=== PATIENT | male | born 1960 | race Hispanic/Latino ===

== ENCOUNTER 2017-10-16 10:20 | Observation (INO) | payer OTHER ==
[2017-10-16] MEDS ORDERED: ONDANSETRON 4 MG/2 ML VIAL IV PRN (11:57)
[2017-10-16] MEDS ORDERED: LOPERAMIDE HCL 2 MG CAPSULE PO PRN (11:57)
[2017-10-16] MEDS ORDERED: DIPHENHYDRAMINE 25 MG TAB/CAP PO PRN (11:57)
[2017-10-16] MEDS ORDERED: ACETAMINOPHEN 325 MG TABLET PO PRN (11:57)
[2017-10-16] MEDS ORDERED: POLYETHYL GLY 3350 17 GM/DOSE PO PRN (11:57)
[2017-10-16] MEDS ORDERED: ONDANSETRON 4 MG (ODT) TAB PO PRN (11:57)
[2017-10-16] MEDS ORDERED: NACHLORIDE 0.45% 1,000 ML IV SCH (12:00)
[2017-10-16 12:01] VITALS: BMI 51.0
[2017-10-16 12:15] LABS: Absolute Lymphocytes (CBC) 0.9 K/uL (0.7-4.9); Absolute Monocytes 0.6 K/uL (0.1-1.3); Absolute Neutrophil 3.8 K/uL (1.8-8.0); Basophils % 0.7 % (0-1.3); Eosinophils % 2.5 % (0-4.4); Hematocrit 45.9 % (39.6-49.0); Lymphocytes % 16.9 % (15.3-44.8); MCH 30.5 pg (27.0-35.0); MCV 92.4 fL (80-100); Monocytes % 10.6 % (3.3-12.3); RBC Red Blood Cell Count 4.96 M/uL (4.33-5.43)
[2017-10-16 12:23] LABS: Protime INR 1.35
[2017-10-16 13:02] LABS: Bicarbonate 23 mEq/L (21-31); Glucose Level 142 mg/dL (65-120); Sodium Level 136 mEq/L (135-145)
[2017-10-16 13:08] LABS: ALT/SGPT 16 IU/L (10-60); AST/SGOT 22 IU/L (10-42); Albumin 3.7 g/dL (3.2-5.5); Alkaline Phosphatase 171 IU/L (42-121); BUN Blood Urea Nitrogen 16 mg/dL (6-20); Bilirubin Direct 0.6 mg/dL (0-0.2); Bilirubin Total 1.9 mg/dL (0.3-1.2); Magnesium 1.9 mg/dL (1.8-2.5); Phosphorus 3.5 mg/dL (2.5-4.3); Protein, Total 7.3 g/dL (6.0-8.3)
[2017-10-16 13:34] LABS: A1c Component 0.98 mg/dL
[2017-10-16 13:40] LABS: Thyroid Stimulating Hormone 2.73 uIU/mL (0.34-5.60)
[2017-10-16 13:44] LABS: UR CREAT 85.6 mg/dL
[2017-10-16 13:51] LABS: Urine Appearance CLEAR; Urine Bilirubin NEGATIVE (NEG); Urine Blood NEGATIVE (NEG); Urine Color YELLOW; Urine Glucose NEGATIVE (NEG); Urine Protein NEGATIVE (NEG); Urine pH 7.5 (5.0-7.0)
[2017-10-16 14:06] LABS: Urine Microscopic Reflex NO UMIC
[2017-10-16] MEDS ORDERED: D50W 25 GM/50 ML SYRINGE IV PRN (15:27)
[2017-10-16] MEDS ORDERED: GLUCAGON 1 MG/VIAL IM PRN (15:27)
--- NOTE | 2017-10-16 15:39 | EKG ---
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
--- NOTE | 2017-10-16 15:50 | ECHO ---
HEIGHT: 5 ft 8 in WEIGHT: 336 lb 0 oz DATE OF STUDY: 10/16/[address]: 2-DIMENSIONAL: YES M.MODE: YES DOPPLER: YES COLOR FLOW: YES TDS: YES PORTABLE: NO DEFINITY: NO BUBBLE STUDY: NO DIAGNOSIS: SYNCOPE, DYSPNEA, CORONARY ARTERY DISEASE CARDIAC HISTORY: CATHERIZATION: NO SURGERY: NO PROSTHETIC VALVE: NO PACEMAKER: NO MEASUREMENTS (cm) DIASTOLIC (NORMALS) SYSTOLIC (NORMALS) IVSd (0.6-1.2) LA Diam 4.3 (1.9-4.0) LVEF >50% LVIDd (3.5-5.7) LVIDs (2.0-3.5) %FS % LVPWd (0.6-1.2) Ao Diam 3.0 (2.0-3.7) 2 DIMENSIONAL ASSESSMENT: RIGHT ATRIUM: LEFT ATRIUM: DILATED RIGHT VENTRICLE: LEFT VENTRICLE: TRICUSPID VALVE: MITRAL VALVE: PULMONIC VALVE: AORTIC VALVE: PERICARDIAL EFFUSION: AORTIC ROOT: LEFT VENTRICULAR WALL MOTION: TECHNICALLY DIFFICULT STUDY. DOPPLER/COLOR FLOW: TECHNICALLY DIFFICULT STUDY. COMMENTS: VERY POOR ULTRASOUND PICTURES. LEFT VENTRICULAR EJECTION FRACTION PROBABLY NORMAL. TECHNOLOGIST: JAE CASTANO RDCS
[2017-10-16] MEDS: INSULIN -REGULAR HUMAN 50 UNIT/0.5 ML ML SQ SCH ×2 (16:30→21:00)
[2017-10-16] MEDS ORDERED: ENOXAPARIN 40 MG/0.4 ML SQ SCH (17:00)
--- NOTE | 2017-10-16 17:25 | RAD REPORT ---
EXAM DESCRIPTION: CT - Chest For Pe Angio - 10/16/2017 5:14 pm CLINICAL HISTORY: Chest pain and cough COMPARISON: None. TECHNIQUE: Dynamically enhanced axial 3 mm thick images of the chest were obtained during administra tion of <100> mL Isovue 370 IV contrast. Coronal and oblique reconstruction images were generated and reviewed. Exam utilizes a protocol for optimal evaluation of pulmonary arterial tree. All CT scans are performed using dose optimization technique as appropriate and may include automated exposure control or mA/KV adjustment according to patient size. FINDINGS: A pulmonary embolus is not seen. A thoracic aortic aneurysm is not noted. A moderate to large loculated right pleural effusion is present. A pericardial effusion is not seen. The right lower lobe opacities are present. IMPRESSION: Moderate to large loculated right pleural effusion Right lower lobe opacities probably represent a combination of atelectasis and pneumonia. This should be followed until it is clear to help exclude a post obstructive process/underlying mass
--- NOTE | 2017-10-16 17:58 | RAD REPORT ---
EXAM DESCRIPTION: MRI - Brain Wo Cont - 10/16/2017 5:34 pm CLINICAL HISTORY: Syncope, CVA COMPARISON: None. TECHNIQUE: Multi-sequence, multiplanar MR imaging of the brain was performed without contrast. FINDINGS: No intracranial hemorrhage, hydrocephalus or extra-axial fluid collections. No edema or sh ift of midline structures. No findings to suspect brain mass. DWI is negative for acute CVA. Midline structures are normally formed. Mastoid air cells and paranasal sinuses are clear. IMPRESSION: No acute or concerning intracranial abnormalities.
[2017-10-17 05:27] LABS: Hematocrit 45.9 % (39.6-49.0); MCH 30.8 pg (27.0-35.0); MCV 92.1 fL (80-100); RBC Red Blood Cell Count 4.98 M/uL (4.33-5.43)
[2017-10-17 05:28] LABS: Absolute Lymphocytes (CBC) 1.4 K/uL (0.7-4.9); Absolute Monocytes 0.6 K/uL (0.1-1.3); Absolute Neutrophil 2.8 K/uL (1.8-8.0); Basophils % 0.8 % (0-1.3); Lymphocytes % 27.9 % (15.3-44.8); Monocytes % 11.5 % (3.3-12.3)
[2017-10-17 05:58] LABS: BUN Blood Urea Nitrogen 16 mg/dL (6-20); Bicarbonate 24 mEq/L (21-31); Glucose Level 140 mg/dL (65-120); Magnesium 2.1 mg/dL (1.8-2.5); Potassium 3.5 mEq/L (3.6-5.0); Sodium Level 136 mEq/L (135-145)
[2017-10-17] MEDS ORDERED: POTASSIUM 25 MEQ EFFERV TAB PO ONE (07:00)
[2017-10-17] MEDS: INSULIN -REGULAR HUMAN 50 UNIT/0.5 ML ML SQ SCH ×2 (07:30→11:30)
[2017-10-17] MEDS ORDERED: METFORMIN HCL 500 MG TAB PO SCH (08:00)
[2017-10-17] MEDS ORDERED: GLIMEPIRIDE 2 MG TABLET PO SCH (08:00)
[2017-10-17] MEDS ORDERED: HOME MED 1 EA UNK (Metformin Hcl [Glucophage] 1,000 MG) PO SCH (09:00)
[2017-10-17] MEDS ORDERED: HOME MED 1 EA UNK (Glimepiride [Glimepiride] 4 MG) PO SCH (09:00)
[2017-10-17 09:03] VITALS: O2SAT 91
--- NOTE | 2017-10-17 10:02 | RAD REPORT ---
EXAM DESCRIPTION: MITRA Nevarez CP - 10/17/2017 9:36 am CLINICAL HISTORY: Syncope COMPARISON: None. TECHNIQUE: Real-time sonographic evaluation of both carotid systems was performed. Doppler interroga tion was performed with waveform tracing bilaterally. FINDINGS: Normal high resistance waveforms are noted in both external carotid arteries. The common c arotid arteries and internal carotid arteries show normal low resistance waveforms. Mild plaquing changes are present in the right internal carotid artery and left bulb. On visual inspe ction there is no significant luminal narrowing. No dissection changes. Peak systolic and end diastol ic velocity values and the ICA/CCA ratios are in the non-hemodynamically significant range. Antegrade flow seen in both vertebral arteries. Velocity values and ratios were recorded and are retained in the patient's imaging records. IMPRESSION: Mild right ICA and left carotid bulb plaquing changes. Visually there is no significant luminal narrowing. Velocity values and ratios indicate no significant stenosis.
[2017-10-17 10:03] VITALS: BP 109/69; TEMP 97.2
--- NOTE | 2017-10-17 10:23 | CON ---
A 57-year-old man. Chief Complaint: Loss of consciousness. History Of Present Illness: Mr. Doherty was at a restaurant yesterday. He had ordered some food, put a basket on it but the basket had made him cough and then he lost consciousness. It was for a ma tter of 10 seconds or so. No bladder or bowel incontinence. No tongue biting. No seizure-like acti vity. No postictal confusion. Since he has been in our hospital roughly 24 hours, there has been no arrhythmia. No abnormality. His blood work other than blood sugars are slightly elevated. Mr. Her simms has diabetes for about 10 years. He uses no tobacco. He takes glimepiride, metformin, triamt erene and hydrochlorothiazide. He has been complaining of a dry cough for the past several months. Apparently, it is something that started about the time he started triamterene with hydrochlorothiazi de. He has no allergies. Physical Examination: General: 5 feet 8 inches, 336 pounds, morbidly obese. No carotid bruit. Lungs: Clear. Cardiac: Normal. Abdomen: Soft. Extremities: Trace edema. Distal pulses palpable. Echocardiogram was largely unreadable. We can see the left atrium is mildly dilated and that the eje ction fraction is normal and an electrocardiogram shows sinus rhythm, rightward axis, poor R-wave pro gression. No definite LA but a questionable LA because of poor R-wave progression. This of course i s a common finding when there is morbid obesity. He has had a CT angio of the chest that is negative for pulmonary embolus. There is a large loculated right pleural effusion, unknown cause. An MRI of the brain is normal. Impression: The patient's cough may have had something to do with it. It does not sound like a typi norma case of cough, syncope, but the patient's cough is something that does need to be investigated at some point. He has the right pleural effusion and a cough and I would be suspicious there is a pulm onary process going on that contributed some way to this syncope. Regarding his heart, I would recom mend he do a nuclear stress test. Ultrasound testing is extremely difficult to interpret because of his massive obesity. A stress test might be useful. He would be a difficult patient to do a cardiac cath on, but it could be done if we need to. At this point, I think he could be discharged and do a n outpatient nuclear stress test. SASHA/RICHARD Voice ID: [id number] Report ID: [id number]
--- NOTE | 2017-10-17 11:08 | P.CNS ---
Date of Consult: 10/17/17 Reason for Consult: Sleep apnea possible obesity hypoventilation syndrome Chief Complaint: Syncopal spell History of Present Illness: Patient is 57 years of age apparently was doing well went to or as strong started 16 and then started coughing violently denies any choking determine red nearly passed out to that he was doing well apart from a chronic cough patient is very upset and angry informed him that is high risk for sleep apnea he needs to be worked up diffuse to communicate with me CT scan shows a right-sided pleural effusion Allergies No Known Allergies Allergy (Verified 10/16/17 13:49) Home Medications: Glimepiride 4 mg PO DAILY 10/16/17 Metformin HCl [Glucophage] 1,000 mg PO DAILY 10/16/17 Triamterene/Hydrochlorothiazid [Triamterene-Hctz 37.5-25 mg Tb] 1 tab PO DAILY 10/16/17 - Past Medical/Surgical History Diabetic: Yes -: DM -: Kidney stone -: Ligaments repair both knees - Social History Alcohol use: No CD- Drugs: No Caffeine use: Yes Place of Residence: Home Review of Systems is unable to be obtained Physical Examination Temp Pulse Resp BP Pulse Ox 97.2 F 84 20 109/69 96 10/17/17 08:00 10/17/17 08:00 10/17/17 08:00 10/17/17 08:00 10/17/17 08:00 General: Alert, Oriented x3 Respiratory: Clear to auscultation bilaterally Cardiovascular: No edema, Edema (Significant 3+ edema) Laboratory Data (last 24 hrs) 10/17/17 04:57: Sodium 136, Potassium 3.5 L, BUN 16, Creatinine 0.74, Glucose 140 H, Phosphorus 4.0, Magnesium 2.1 10/17/17 04:57: WBC 5.1, Hgb 15.3, Hct 45.9, Plt Count 166 10/16/17 12:45: Troponin I < 0.03 10/16/17 12:01: B-Natriuretic Peptide 175 H 10/16/17 12:01: Sodium 136, Potassium 4.0, BUN 16, Creatinine 0.81, Glucose 142 H, Phosphorus 3.5, Magnesium 1.9, Total Bilirubin 1.9 H, AST 22, ALT 16, Alkaline Phosphatase 171 H 10/16/17 12:01: PT 16.0 H, INR 1.35, APTT 29.4 10/16/17 12:01: WBC 5.4, Hgb 15.1, Hct 45.9, Plt Count 171 - Problems (1) Sleep apnea Current Visit: Yes Status: Acute Plan: Patient is very high risk for obstructive sleep apnea is morbidly obese history of loud snoring feeling tired excessive daytime somnolence for patient became very upset with me when I mentioned him to to him about the possibility off obstructive sleep apnea an outpatient testing thyroid function tests is normal he will also need room-air blood gases room-air sat is 91% on room air patient denies any preceding history of chest pain although he has chronic shortness of breath on exertion he will need outpatient possible stress testing echocardiogram ultrasound of his carotids are so far negative (2) Pleural effusion Current Visit: Yes Status: Acute Plan: Patient has a pleural effusion on the right side of ordered a PA lateral chest x -ray bilateral decubitus of the chest (3) Cough Current Visit: Yes Status: Acute Plan: Patient complains of a chronic cough I suggest treatment to with nasal steroid and a PPI the possibility of gastroesophageal reflux this also possible that he has obesity induced asthma and recommended trial of Advair at the time of discharge
--- NOTE | 2017-10-17 11:42 | P.DS ---
Admission Date: 10/16/17 Discharge Date: 10/17/17 Disposition: ROUTINE DISCHARGE Discharge Condition: FAIR Reason for Admission: Syncopal spell Hospital Course: UMBERTO IS STABLE. HE HAS NOT HAD ANY MORE SYNCOPE. HE HAS LARGE EFFUSION RIGHT SIDE THAT HE WILL FU WITH DR. MURILLO. HE HAS NOT DONE SLEEP STUDY YET AND HAS REFUSED BEFORE. MRI IS NEGATIVE. ECHO POOR QUALITY FROM MORBID OBESITY. I WENT OVER HIS DIET AGAIN WITH . 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 HE WILL HAVE TO FOLLOW PALEO DIET TO LOSE WEIGHT. COMPLIANCE IS POOR.. I HAVE TOLD HIM AGAIN THAT WITH OBESITY OF THIS MAGNITUDE WE WILL SEE MORE AND MORE COMPLICATIONS UNLESS HE LOSES WEIGHT. Vital Signs/Physical Exam: Temp Pulse Resp BP Pulse Ox 97.2 F 84 20 109/69 96 10/17/17 08:00 10/17/17 08:00 10/17/17 08:00 10/17/17 08:00 10/17/17 08:00 Laboratory Data at Discharge: WBC 5.1 K/uL (4.3-10.9) 10/17/17 04:57 Hgb 15.3 g/dL (13.6-17.9) 10/17/17 04:57 Hct 45.9 % (39.6-49.0) 10/17/17 04:57 Plt Count 166 K/uL (152-406) 10/17/17 04:57 PT 16.0 SECONDS (9.5-12.5) H 10/16/17 12:01 INR 1.35 10/16/17 12:01 APTT 29.4 SECONDS (24.3-36.9) 10/16/17 12:01 Sodium 136 mEq/L (135-145) 10/17/17 04:57 Potassium 3.5 mEq/L (3.6-5.0) L 10/17/17 04:57 BUN 16 mg/dL (6-20) 10/17/17 04:57 Creatinine 0.74 mg/dL (0.61-1.24) 10/17/17 04:57 Glucose 140 mg/dL (65-120) H 10/17/17 04:57 Phosphorus 4.0 mg/dL (2.5-4.3) 10/17/17 04:57 Magnesium 2.1 mg/dL (1.8-2.5) 10/17/17 04:57 Total Bilirubin 1.9 mg/dL (0.3-1.2) H 10/16/17 12:01 AST 22 IU/L (10-42) 10/16/17 12:01 ALT 16 IU/L (10-60) 10/16/17 12:01 Alkaline Phosphatase 171 IU/L (42-121) H 10/16/17 12:01 Troponin I < 0.03 ng/mL (<0.03) 10/16/17 12:45 B-Natriuretic Peptide 175 pg/ml (<=100) H 10/16/17 12:01 Home Medications: Glimepiride 4 mg PO DAILY 10/16/17 Metformin HCl [Glucophage] 1,000 mg PO DAILY 10/16/17 Triamterene/Hydrochlorothiazid [Triamterene-Hctz 37.5-25 mg Tb] 1 tab PO DAILY 10/16/17 Fluticasone/Salmeterol [Advair 250-50 Diskus] 1 each IH DAILY #1 blst.w.dev Omeprazole [Prilosec] 40 mg PO DAILY #30 capsule. 10/17/17 New Medications: Fluticasone/Salmeterol [Advair 250-50 Diskus] 1 each IH DAILY #1 blst.w.dev Omeprazole [Prilosec] 40 mg PO DAILY #30 capsule. Patient Discharge Instructions: FU AT MY OFFICE IN ONE WEEK. DR. MURILLO FOR 1- [address] HOLDEN FOR SAME.
[2017-10-17 11:47] LABS: Arterial Blood Carboxyhemoglob 1.5 % (0-1.5); Blood Gas Oxyhemoglobin 92.6 % (94-97); Blood O2 Saturation 94.5 % (92-98.5)
--- NOTE | 2017-10-19 08:59 | CON ---
History Of Present Illness: Mr. Jon Doherty is a pleasant 57-year-old gentleman who was in good state of health until he had productive coughing for a few weeks ago. He was admitted to the hospital for rule out DE and his D- dimer is elevated. He had an echocardiogram that showed very poor ultrasound pictures and probably normal ejection fraction. Also had a CT of the chest that showed a right lower lobe purulent effusion, [id number] loculated right pleural effusion, possible atelectasis versus pneumonia. Also, he had a brain MRI that read is pending on. He possibly had a CT scan of the abdomen and pelvis. We will check that later. Anyway, I was called as he had been having some intermittent gross hematuria. No clots nor cranberry juice. We will have to work this up for later with a cystoscopy and CT scan of the abdomen and pelvis. He has minimal lower urinary tract symptomatology. He gets up maybe once at night. No decrease in force of stream. No straining. No frequency. No irritation. No signs of obstruction. No overactive bladder. Did have a history of kidney stones in the past, which I did a ureteroscopy on him in the past. He did have a previous CT scan in 2013 that showed a 4-mm stone in the right distal ureter at that time. Past Medical History: Diabetes mellitus, hypertension, dyspnea, fatigue, obstructive sleep apnea, syncope. Medications: Metformin, fenofibrate, __, triamterene, hydrochlorothiazide. Allergies: NO KNOWN DRUG ALLERGIES. Review of Systems: General: No fevers or chills. HEENT: No visual disturbance. No nasal discharge or sore throat. Respiratory: Some shortness of breath as mentioned above. Cardiovascular: No chest pain or palpitations. Gastrointestinal: No vomiting, diarrhea, or melena. Genitourinary: As mentioned above. Musculoskeletal: No joint pain or swelling. Neurological: Intact. Skin: No rashes. Hematologic: Negative. Physical Examination: General: Morbid obesity. Some dyspnea at rest. Vital Signs: Temperature 97, pulse 88, respiratory rate 16, BP 121/78, and oxygen saturation 96. Chest: Clear. Abdomen: Soft, nontender. No flank tenderness. Genitourinary: Both testicles descended. Phallus uncircumcised. Normal MIKE, about a 30 to 40 g benign-feeling prostate. Extremities: Normal range of motion. Laboratory Data: Reviewed. Hematology; white count 5.4, H and H 15 and 46, and platelet count 171. Coagulation; PT 16, INR 1.3, and PTT 25. D-dimer elevated. Chemistry shows sodium 136, potassium 4.0, chloride 104, carbon dioxide 23, BUN 16, creatinine 0.8. GFR greater than 90. Phosphorus normal. Calcium normal. Liver enzymes normal. TSH normal. Urine study showed pH 7.5, colorless, clear. Blood was negative. RBC negative. Does have another UA on the computer from 2012 that shows microscopic hematuria, most likely caused from the stone, but right now his urine is negative. Assessment: A pleasant gentleman 57-year-old with multiple medical problems, diabetes, hypertension, dyspnea, fatigue, obstructive sleep apnea, and syncope, who passed out and his here for workup. Workup revealed a right moderate-sized pleural effusion. He possible had a CT scan of the abdomen and pelvis. For final workup, he will need a bladder evaluation with a cystoscopy which can be done electively as an outpatient. Also, needs a PSA from primary care office or another one. NAYANA/RICHARD Voice ID: [id number] Report ID: [id number] MANPREET
--- NOTE | 2017-10-28 14:24 | EEG ---
CHART: [id number] TEST ID#: [id number] DATE OF STUDY: 10-16-2017 THE EEG WAS RECORDED PORTABLE IN THE PATIENTS ON A 17 CHANNEL MACHINE. ELECTRODES WERE APPLIED IN THE USUAL MANNER USING THE INTERNATIONAL 10-20 SYSTEM. THE WAKING BACKGROUND RHYTHM IN THIS RECORD CONSISTS OF VERY WELL DEVELOPED AND ORGANIZED WAVES OF 9.5 HZ., MIXIMAL IN THE POSTERIOR HEAD REGIONS WHICH ATTENUATE NORMALLY WITH EYE OPENING. LOW VOLTAGE 18-22 HZ ACTIVITY IS EXPRESSED IN THE FRONTAL REGIONS. THERE ARE NO FOCAL OR LATERALIZING FEATURES. NO EPILEPTIFORM ACTIVITY APPEARS. SLEEP DID NOT OCCUR. HYPERVENTILATION WAS NOT PREFORMED. PHOTIC STIMULATION PRODUCED FAIR DRIVING BILATERALLY. IMPRESSION: NORMAL EEG FOR THE AGE OF THE PATIENT IN [place].
== END 2017-10-17 12:28 | disposition home or self-care (01) ==
LOC: 4TH 10:51
PROVIDERS: ADMIT Internal Medicine; ATTEND Internal Medicine
DX: R55 Syncope and collapse (principal); J90 Pleural effusion, not elsewhere classified; R05 Cough; Z91.11 Patient's noncompliance with dietary regimen; E66.01 Morbid (severe) obesity due to excess calories; Z68.43 Body mass index [BMI] 50.0-59.9, adult; E11.9 Type 2 diabetes mellitus without complications; G47.30 Sleep apnea, unspecified; I10 Essential (primary) hypertension
CPT/HCPCS: 36415; 70551; 71275; 80048; 80076; 81003; 82043; 82306; 82570; 82607; 82805; 82962; 83036; 83735; 83880; 84100; 84443; 84484; 85025; 85379; 85610; 85730; 87086; 87088; 93005; 93306; 93880; 95819; G0378; J1650; Q9967

== ENCOUNTER → 2018-02-10 | Day surgery (SDC) | payer OTHER ==
[~2018-02-10] MED LIST: NA CHLORIDE 0.9% 1,000 ML ONE
[2018-02-10 10:52] VITALS: BMI 50.1
--- NOTE | 2018-02-10 12:16 | RAD REPORT ---
EXAM DESCRIPTION: US - Thoracentesis w/ US Guide - 02/10/2018 11:59 am CLINICAL HISTORY: Pleural effusion. RT PLEURAL EFF COMPARISON: Chest Pa And Lat (2 Views) dated 01/25/2018; Chest For Pe Angio dated 10/16/2017 FINDINGS: Preoperative diagnosis: Right pleural effusion. Post operative diagnosis: Same Conscious Sedation: None. Estimated blood loss: Minimal Specimens:None The patient was placed in the upright recumbent position and the right back was prepped and draped in the usual sterile fashion. 1% Lidocaine was infiltrated into the soft tissues for local anesthesia. Under sonographic guidance, a thoracentesis needle and 8 [place] catheter was advanced into the righ t pleural space. Approximately 1.4 liters yellow fluid was aspirated. The patient tolerated the proce dure without immediate complication and transferred to the [facility] in stable condition. IMPRESSION: Successful ultrasound-guided thoracentesis as detailed.
--- NOTE | 2018-02-10 12:31 | RAD REPORT ---
EXAM DESCRIPTION: RAD - Chest Single View - 02/10/2018 12:24 pm CLINICAL HISTORY: Post thoracentesis. Chest pain. COMPARISON: Chest Pa And Lat (2 Views) dated 01/25/2018 FINDINGS: Portable technique limits examination quality. There has been reduced mild reduction in size of the right pleural effusion. No post procedure pneumo thorax. The heart is mildly prominent in size. No displaced fractures. IMPRESSION: No postprocedure pneumothorax
--- NOTE | 2018-02-10 15:42 | RAD REPORT ---
EXAM DESCRIPTION: RAD - Chest Single View - 02/10/2018 3:36 pm CLINICAL HISTORY: Post thoracentesis chest film COMPARISON: Portable chest 3 hours earlier TECHNIQUE: AP portable chest image was obtained 1521 hours . FINDINGS: Lung volumes are low on expiration technique. There is no post thoracentesis pneumothorax identifiable. Pleural and parenchymal opacities are stable. Motion degradation is present. IMPRESSION: No post thoracentesis pneumothorax.
[2018-02-10 16:16] VITALS: BP 125/79; TEMP 98; O2SAT 95
== END ==
LOC: DS 09:44
PROVIDERS: ATTEND Internal Medicine Sleep Medicine
PROC: 0W993ZZ Drainage of Right Pleural Cavity, Percutaneous Approach (ICD-10-PCS; principal; 2018-02-10)
PROC: BB4BZZZ Ultrasonography of Pleura (ICD-10-PCS; 2018-02-10)
DX: J91.8 Pleural effusion in other conditions classified elsewhere (principal); G47.33 Obstructive sleep apnea (adult) (pediatric); E11.9 Type 2 diabetes mellitus without complications
CPT/HCPCS: 32555; 71045; J7030

== ENCOUNTER 2022-04-14 17:10 | Observation (INO) | payer OTHER ==
[2022-04-14 17:52] LABS: SARS-CoV-2 Antigen Rapid Res Negative (Negative)
--- OUTSIDE RECORDS SUMMARY | 2022-04-14 20:22 | XMS REPORT | Continuity of Care Document ---
:1960 Author Organization [facility] t Address [address] [place] [address] Care Team Providers Name Role Phone Evin Carter MD Primary Care Physician [phone] ADRIANNE GRANADOS Attending Clinician Unavailable Problems Condition Condition Condition Status Onset Resolution Last Treating Co mments Source Name Details Category Date Date Treatment Clinician Date Hydrothora Hydrothora Disease Active Last [facility] x x 6-30 [facility] 00:00: t & Plan: Medical 00 [facility]ly [facility] g of this note might be different from the original. Initial presentat ion was suspected due to pneumonia and exudative pleural effusion. Per patient and family, the prolonged clinical course however raises concern for hepatic hydrothor ax. There is concern for cirrhosis with risk factors of metabolic syndrome. CXR for update is recommend ed. He is to continue current diuretic therapy until a full assessmen t can be made. Other Other Disease Active Last [facility] cirrhosis cirrhosis 6-30 [facility] [place] of liver of liver 00:00: t & Plan: Med ical 00 [facility]ly [facility] g of this note might be different from the original. Cirrhosis suspected based on clinical history of a pleural effusion that was difficult to treat and metabolic syndrome. A comprehen sive work up is planned to assess for any additiona l etiologie s. High level imaging is recommend ed with CT scan with triple phase liver protocol. Cirrhosis education reviewed and is suspected . Updated labs for Na MELD calculati on recommend ed. If liver transplan t would need to be discussed , obesity and a BMI of 56.24 will limit this options. Obesity Obesity Disease Active Last [facility] due to due to 6-30 [facility] excess excess 00:00: t & Plan: Medical calories calories 00 [facility] with with g of this serious serious note comorbidit comorbidit might be y y different from the original. Body mass index is 56.24 kg/m2. Obesity is an establish ed risk factor for vascular complicat ions (ie coronary artery disease, cerebrova scular disease, periphera l vascular disease), osteoarth ritis, pulmonary disease, as well as the developme nt of non-alcoh olic fatty liver disease and the risk for non-alcoh olic steatohep atitis. We have recommend ed a structure d weight loss program (10% body weight initially ), along with dietary modificat ions and regular exercise for overall good health and to minimize the risk of obesity -related complicat ions. The assessmen t of a cut lace machine operator or nutrition ist may be beneficia l. Screening Screening Disease Active [facility] for for 11-28 [facility] malignant malignant 00:00: t & Plan: M edical neoplasm neoplasm 00 [facility] g of this note might be different from the original. Cirrhosis , regardles s of etiology, is a risk factor for developme nt of hepatocel lular carcinoma . The annual incidence of HCC varies from 1.5-7%. Thus, we recommend surveilla nce for HCC be performed using contrast MRI or CT imaging and alphafeto protein every 6 months. Due to weight, CT scan with triple phase liver protocol is planned. Abnormal Abnormal Disease Active [facility] liver liver 11-22 [facility] enzymes enzymes 00:00: [address] Immunity Immunity Disease Active [facility] status status 11-22 [facility] testing testing 00:00: t & Plan: Medic al [address] [place] [address] g of this note might be different from the original. Serologic al tests will be completed to determine the presence of immunity to hepatitis A and B. If the patient does not have adequate immunity, we would recommend administr ation of appropria te vaccinati on as per CDC guideline s by the primary care provider. 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 Poorly controlle d diabetes is a risk factor for fatty liver, metabolic syndrome which can lead to cirrhosis . Counselin vicente done on the need for control of his DM. Metformin carries a black box warning for lactic acidosis. Venous lactic acid to be sent and if negative, he was counseled to continue his current therapy he has been on for many years. Diet education and counselin vicente done today. Allergies, Adverse Reactions, Alerts This patient has no known allergies or adverse reactions. Family History Family Member Diagnosis Comments Start Date Stop Date Source Natural brother Hypertension [facility] Natural father Hypertension [facility] Natural mother Arthritis [facility] [place] es [facility] Center Social History Social Habit Start Date Stop Date Quantity Comments Source History SDOH [facility] Alcohol Std Drinks Medica l Center History SDNV [facility] Alcohol Binge Medical [facility] History [facility] Alcohol Comment Medical C enter Alcohol intake 2019-01-31 2019-01-31 Current [facility] Laurie es 00:00:00 00:00:00 non-drinker of Medical Ce nter alcohol (finding) Tobacco use and 2018-11-22 2018-11-22 Never used [facility] Jenni kes exposure 00:00:00 00:00:00 Medical Center History SDOH 2018-11-22 2018-11-[address] [facility] Alcohol Frequency 00:00:00 00:00:00 Medical Center Sex Ass[birth year] At [birth year] [facility] Jenni kes 00:00:00 00:00:00 Medical Center Smoking Status Start Date Stop Date Source Never smoker [facility] ical [place] Medications Ordered Filled Start Stop Current Ordering Indication Dosage Frequency Signature Comments Components Source Medication Medication Date Date Medication? Clinician (SIG) Name Name furosemide Yes Furosemide [facility] (LASIX) 20 1-03 20mg take [facility] s MG tablet 00:00: 2 tablets Med ical 00 by mouth Center once daily adjust as directed each week. spironolact Yes 100mg QD Take [address] one 7-10 tablets [facility] (ALDACTONE) 00:00: (100 mg Med ical 50 MG 00 total) by Center tablet mouth daily Adjust as directed. cholecalcif Yes [id number] Q7D Take [facility] quiana, 6-24 50,000 [facility] vitamin D3, 12:38: Units by Co dical 50,000 unit 18 mouth once Ce nter capsule a week . metFORMIN 2018- Yes 1000mg Take 1,[address] (GLUCOPHAGE 6-03 mg by [facility] ) 1000 MG 00:00: mouth 2 Medic al tablet 00 (two) Center times daily with breakfast and dinner . glimepiride Yes 4mg Take [address] (AMARYL) 4 6-03 by mouth [facility] MG tablet 00:00: every Medical 00 morning Center before breakfast . Procedures This patient has no known procedures. Results Test Description Test Time Test Comments Results Result Comments Source ALPHA FETOPROTEIN (AFP), TUMOR MARKER 2019-01-24 18:46:00 Test Item Value Reference Range Interpretation Comme nts ALPHA-FETOPROTEIN (BEAKER) (test code = 1094) < ng/mL <10.0 BASIC METABOLIC [id number] 17:18:00 Test Item Value Reference Range Interpretation Comments SODIUM (BEAKER) 139 meq/L 136-145 (test code = 381) POTASSIUM (BEAKER) 4.2 meq/L 3.5-5.1 (test code = 379) CHLORIDE (BEAKER) 105 meq/L 98-107 (test code = 382) CO2 (BEAKER) (test 25 meq/L 22-29 code = 355) BLOOD UREA NITROGEN 20 mg/dL 7-21 (BEAKER) (test code = 354) CREATININE (BEAKER) 0.91 mg/dL 0.57-1.25 (test code = 358) GLUCOSE RANDOM 69 mg/dL 70-105 L (BEAKER) (test code = 652) CALCIUM (BEAKER) 10.0 mg/dL 8.4-10.2 (test code = 697) EGFR (BEAKER) (test 85 mL/min/1.73 ESTIMA HANNA GFR IS code = 1092) sq m NOT ACCURATE CREATININE CLEARANCE IN PREDICTING GLOMERULAR FILTRATION RATE . ESTIMATED GFR I S NOT APPLICABLE FOR DIALYSIS PATIEN TS. Specimen slightly ictericHEPATIC FUNCTION [id number] 17:18:00 Test Item Value Reference Range Interpretation Comments TOTAL PROTEIN (BEAKER) (test code = 8.3 gm/dL 6.0-8.3 770) ALBUMIN (BEAKER) (test code = 1145) 3.9 g/dL 3.5-5.0 BILIRUBIN TOTAL (BEAKER) (test code 2.7 mg/dL 0.2-1.2 H = 377) BILIRUBIN DIRECT (BEAKER) (test 1.6 mg/dL 0.1-0.5 H code = 706) ALKALINE PHOSPHATASE (BEAKER) (test 215 U/L 40-150 H code = 346) AST (SGOT) (BEAKER) (test code = 23 U/L 5-34 353) ALT (SGPT) (BEAKER) (test code = 11 U/L 6-55 347) Specimen slightly ictericPROTHROMBIN [id number] 16:56:00 Test Item Value Reference Range Interpretation Comments PROTIME (BEAKER) (test code = 17.2 seconds 11.9-14.2 H 759) INR (BEAKER) (test code = 370) 1.5 <=5.9 Effective 10/27/2018: PT Reference Range ChangeNew: 11.9-14.2 Previous: 11.7- 14.7RECOMMENDED COUMADIN/WARFARIN INR THERAPY RANGESSTANDARD DOSE: 2.0-3.0 Includes: PROPHYLAXIS for venous thrombosis, systemic embolization; TREATMENT for venous thrombosis and/or pulmonary embolus.HIGH RISK: Target INR is 2.5-3.5 for patients wiht mechanical heart valves.URINALYSIS W/ [id number] 16:47:00 Test Item Value Reference Range Interpretation Comments COLOR (BEAKER) (test code = 470) Yellow CLARITY (BEAKER) (test code = 469) Clear SPECIFIC GRAVITY UA (BEAKER) (test 1.017 1.001-1.035 code = 468) PH UA (BEAKER) (test code = 467) 5.5 5.0-8.0 PROTEIN UA (BEAKER) (test code = 10 mg/dL Negative A 464) GLUCOSE UA (BEAKER) (test code = Negative Negative 365) KETONES UA (BEAKER) (test code = Negative Negative 371) BILIRUBIN UA (BEAKER) (test code = Negative Negative 462) BLOOD UA (BEAKER) (test code = Negative Negative 461) NITRITE UA (BEAKER) (test code = Negative Negative 465) LEUKOCYTE ESTERASE UA (BEAKER) Negative Negative (test code = 466) UROBILINOGEN UA (BEAKER) (test 4.0 mg/dL 0.2-1.0 H code = 463) RBC UA (BEAKER) (test code = 519) 0 /HPF WBC UA (BEAKER) (test code = 520) 3 /HPF MUCUS (BEAKER) (test code = 1574) Occasional SQUAMOUS EPITHELIAL (BEAKER) (test < /HPF code = 516) SOURCE(BEAKER) (test code = 2795) CBC W/PLT COUNT & AUTO [id number] 16:41:00 Test Item Value Reference Range Interpretation Comments WHITE BLOOD CELL COUNT (BEAKER) 6.3 K/ L 3.5-10.5 (test code = 775) RED BLOOD CELL COUNT (BEAKER) 4.69 M/ L 4.63-6.08 (test code = 761) HEMOGLOBIN (BEAKER) (test code = 15.4 GM/DL 13.7-17.5 410) HEMATOCRIT (BEAKER) (test code = 46.3 % 40.1-51.0 411) MEAN CORPUSCULAR VOLUME (BEAKER) 98.7 fL 79.0-92.2 H (test code = 753) MEAN CORPUSCULAR HEMOGLOBIN 32.8 pg 25.7-32.2 H (BEAKER) (test code = 751) MEAN CORPUSCULAR HEMOGLOBIN CONC 33.3 GM/DL 32.3-36.5 (BEAKER) (test code = 752) RED CELL DISTRIBUTION WIDTH 16.2 % 11.6-14.4 H (BEAKER) (test code = 412) PLATELET COUNT (BEAKER) (test 205 K/CU MM 150-450 code = 756) MEAN PLATELET VOLUME (BEAKER) 9.8 fL 9.4-12.4 (test code = 754) NUCLEATED RED BLOOD CELLS 0 /100 WBC 0-0 (BEAKER) (test code = 413) NEUTROPHILS RELATIVE PERCENT 69 % (BEAKER) (test code = 429) LYMPHOCYTES RELATIVE PERCENT 13 % (BEAKER) (test code = 430) MONOCYTES RELATIVE PERCENT 13 % (BEAKER) (test code = 431) EOSINOPHILS RELATIVE PERCENT 5 % (BEAKER) (test code = 432) BASOPHILS RELATIVE PERCENT 1 % (BEAKER) (test code = 437) NEUTROPHILS ABSOLUTE COUNT 4.34 K/ L 1.78-5.38 (BEAKER) (test code = 670) LYMPHOCYTES ABSOLUTE COUNT 0.80 K/ L 1.32-3.57 L (BEAKER) (test code = 414) MONOCYTES ABSOLUTE COUNT (BEAKER) 0.80 K/ L 0.30-0.82 (test code = 415) EOSINOPHILS ABSOLUTE COUNT 0.31 K/ L 0.04-0.54 (BEAKER) (test code = 416) BASOPHILS ABSOLUTE COUNT (BEAKER) 0.05 K/ L 0.01-0.08 (test code = 417) IMMATURE GRANULOCYTES-RELATIVE 1 % 0-1 PERCENT (BEAKER) (test code = 2801) ANTI-NUCLEAR ANTIBODY (CUCO)2018-11-23 10:03:00 Test Item Value Reference Range Interpretation Comments ANTI-NUCLEAR ANTIBODY (CUCO) (BEAKER) Negative Negative (test code = 418) Test performed by IFA method.Test performed by IFA method.HEPATITIS C ANTIBODY 2018-11-22 19:10:00 Test Item Value Reference Range Interpretation Comments HEPATITIS C ANTIBODY (BEAKER) Nonreactive Nonreactive (test code = 367) [id number] 17:21:00 Test Item Value Reference Range Interpretation Comments FERRITIN (BEAKER) (test code = 361) 119 ng/mL 5-275 CT, ABDOMEN, [id number] 16:56:00Referring: Dr. Evin Carter Triple phase liver protocol Triple phase liver protocolFINAL REPORT ABDOMINAL CT DATED 11/22/2018 CLINICAL INFORMATION: abdominal pain,pleural effusion, concern for cirrhosis TECHNIQUE: Axial images of the abdomen were obtained from diaphragm to the upper pelvis with and without intravenous contrast. This exam was performed according to our departmental dose- optimization program, which includes automated exposure control, adjustment of the mA and/or kV according to patient size and/or use of interactive reconstruction technique. COMMENT: There is trace right pleural effusion small to moderate left pleural effusion. Subsegmental atelectasis is seen in both lung bases. Liver is cirrhotic in appearance with irregular margins. No focal lesion is seen in the liver. Spleen is normal in size. The splenic, superior mesenteric, portal, and hepatic veins are patent. Main portal vein measures 1.4 cm. Multiple collateral veins are seen in the splenic hilum. There is splenorenal shunt. Gallbladder is contracted. No gallstone or biliary dilatation is noted. Pancreas and adrenals are unremarkable. Both kidneys are normal in size and functioning with prompt bilateral excretion. A 1.2 cm cyst is seen in the upper pole left kidney. Several cysts are seen in the right kidney with the largest measuring approximately 3 cm. The small and large bowel are suboptimally evaluated segment to lack of GI contrast. No small or large bowel dilatation is seen. Small amount of ascites is seen in the abdomen. There is diffusely increased attenuation in thesubcutaneous soft tissue suggestive of edema. IMPRESSION: 1. Bilateral pleural effusion with bibasilar subsegmental atelectasis.2. Findings suggestive of cirrhosis without suspicious hepatic mass.3. Bilateral renal cysts.4. Small ascites. Signed: Lizz Arce MDReport Verified Date/Time: 11/22/2018 16:56:24 Reading Location: [address] Radiology Reading Room HEPATITIS B SURFACE [id number] 16:50:00 Test Item Value Reference Range Interpretation Comments HEPATITIS B SURFACE ANTIBODY < mIU/mL <8.0 (BEAKER) (test code = 647) HEPATITIS B SURFACE [id number] 16:49:00 Test Item Value Reference Range Interpretation Comments HEPATITIS B SURFACE ANTIGEN (2) Nonreactive Nonreactive (BEAKER) (test code = 2585) HEPATITIS B CORE ANTIBODY, [id number] 16:49:00 Test Item Value Reference Range Interpretation Comments HEPATITIS B CORE TOTAL ANTIBODY Nonreactive Nonreactive (BEAKER) (test code = 497) HEPATITIS A ANTIBODY, [id number] 16:49:00 Test Item Value Reference Range Interpretation Comments HEPATITIS A IGG ANTIBODY (BEAKER) Nonreactive Nonreactive (test code = 2797) B-TYPE NATRIURETIC FACTOR (BNP)2018-11-22 16:36:00 Test Item Value Reference Range Interpretation Comments B-TYPE NATRIURETIC PEPTIDE (BEAKER) 332 pg/mL 0-100 H (test code = 700) RAD, CHEST, 2 [id number] 16:36:00Referring: Dr. Evin Carter Reason for Exam:->right pleural effusionFINAL REPORT PA and lateral chest dated 11/22/2018 Clinical Information: right pleural effusion Comment: Heart is enlarged. Pulmonary vasculature is indistinct. Interstitial diseaseis seen bilaterally suggestive of vascular congestion. There is a bilateral pleural effusion with bibasilar subsegmental atelectasis. IMPRESSION:1. Bilateral pleural effusion with bibasilar subsegmental atelectasis.2. Interstitial pulmonary disease suggestive of vascular congestion. Signed: Lizz Arce MDReport Verified Date/Time: 11/22/2018 16:36:54 Reading Location: [address] Radiology Reading Room BILIRUBIN, [id number] 16:30:00 Test Item Value Reference Range Interpretation Comments BILIRUBIN DIRECT (BEAKER) (test 1.6 mg/dL 0.1-0.5 H code = 706) COMPREHENSIVE METABOLIC [id number] 16:30:00 Test Item Value Reference Range Interpretation Comments TOTAL PROTEIN 7.5 gm/dL 6.0-8.3 (BEAKER) (test code = 770) ALBUMIN (BEAKER) 3.8 g/dL 3.5-5.0 (test code = 1145) ALKALINE PHOSPHATASE 191 U/L 40-150 H (BEAKER) (test code = 346) BILIRUBIN TOTAL 2.4 mg/dL 0.2-1.2 H (BEAKER) (test code = 377) SODIUM (BEAKER) (test 139 meq/L 136-145 code = 381) POTASSIUM (BEAKER) 3.8 meq/L 3.5-5.1 (test code = 379) CHLORIDE (BEAKER) 108 meq/L 98-107 H (test code = 382) CO2 (BEAKER) (test 23 meq/L 22-29 code = 355) BLOOD UREA NITROGEN 19 mg/dL 7-21 (BEAKER) (test code = 354) CREATININE (BEAKER) 0.79 mg/dL 0.57-1.25 (test code = 358) GLUCOSE RANDOM 96 mg/dL 70-105 (BEAKER) (test code = 652) CALCIUM (BEAKER) 9.5 mg/dL 8.4-10.2 (test code = 697) AST (SGOT) (BEAKER) 17 U/L 5-34 (test code = 353) ALT (SGPT) (BEAKER) 8 U/L 6-55 (test code = 347) EGFR (BEAKER) (test 100 ESTIMATE D GFR IS code = 1092) mL/min/1.73 sq NOT ACCURA TE m CREATININE CLEARANCE IN PREDICTING GLOMERULAR FILTRATION RATE . ESTIMATED GFR I S NOT APPLICABLE FOR DIALYSIS PATIEN TS. Specimen slightly ictericIRON, TIBC, % SAT. (WITHOUT FERRITIN)2018-11-22 16:28:00 Test Item Value Reference Range Interpretation Comments IRON (BEAKER) (test code = 547) 82.0 ug/dL 40.0-160.0 TOTAL IRON BINDING CAPACITY 345 ug/dL 250-450 (BEAKER) (test code = 769) IRON % SATURATION (2) (BEAKER) 24 % 20-55 (test code = 2590) [id number] 16:28:00 Test Item Value Reference Range Interpretation Comments ALPHA-1 ANTITRYPSIN (BEAKER) 192.90 mg/dL 90.00-200.00 (test code = 502) LACTIC ACID, [id number] 16:25:00 Test Item Value Reference Range Interpretation Comments LACTATE BLOOD VENOUS 1.4 mmol/L 0.5-2.2 Specime n slightly (2) (BEAKER) (test hemolyzed code = 2872) CBC W/PLT COUNT & AUTO [id number] 16:12:00 Test Item Value Reference Range Interpretation Comments WHITE BLOOD CELL COUNT (BEAKER) 4.8 K/ L 3.5-10.5 (test code = 775) RED BLOOD CELL COUNT (BEAKER) 4.62 M/ L 4.63-6.08 L (test code = 761) HEMOGLOBIN (BEAKER) (test code = 14.8 GM/DL 13.7-17.5 410) HEMATOCRIT (BEAKER) (test code = 43.6 % 40.1-51.0 411) MEAN CORPUSCULAR VOLUME (BEAKER) 94.4 fL 79.0-92.2 H (test code = 753) MEAN CORPUSCULAR HEMOGLOBIN 32.0 pg 25.7-32.2 (BEAKER) (test code = 751) MEAN CORPUSCULAR HEMOGLOBIN CONC 33.9 GM/DL 32.3-36.5 (BEAKER) (test code = 752) RED CELL DISTRIBUTION WIDTH 16.8 % 11.6-14.4 H (BEAKER) (test code = 412) PLATELET COUNT (BEAKER) (test 166 K/CU MM 150-450 code = 756) MEAN PLATELET VOLUME (BEAKER) 10.1 fL 9.4-12.4 (test code = 754) NUCLEATED RED BLOOD CELLS 0 /100 WBC 0-0 (BEAKER) (test code = 413) NEUTROPHILS RELATIVE PERCENT 70 % (BEAKER) (test code = 429) LYMPHOCYTES RELATIVE PERCENT 14 % (BEAKER) (test code = 430) MONOCYTES RELATIVE PERCENT 11 % (BEAKER) (test code = 431) EOSINOPHILS RELATIVE PERCENT 5 % (BEAKER) (test code = 432) BASOPHILS RELATIVE PERCENT 1 % (BEAKER) (test code = 437) NEUTROPHILS ABSOLUTE COUNT 3.37 K/ L 1.78-5.38 (BEAKER) (test code = 670) LYMPHOCYTES ABSOLUTE COUNT 0.65 K/ L 1.32-3.57 L (BEAKER) (test code = 414) MONOCYTES ABSOLUTE COUNT (BEAKER) 0.55 K/ L 0.30-0.82 (test code = 415) EOSINOPHILS ABSOLUTE COUNT 0.22 K/ L 0.04-0.54 (BEAKER) (test code = 416) BASOPHILS ABSOLUTE COUNT (BEAKER) 0.03 K/ L 0.01-0.08 (test code = 417) IMMATURE GRANULOCYTES-RELATIVE 0 % 0-1 PERCENT (BEAKER) (test code = 2801) [id number] 15:41:00 Test Item Value Reference Range Interpretation Comments POC-CREATININE 0.7 mg/dL 0.6-1.[address] [facility] [address] ([facility]) (test [place] code = 2642) [address] POC-EGFR (BEAKER) 115 mL/min/1.73M2 (test code = 7036)
[2022-04-14 20:54] VITALS: BMI 53.0
[2022-04-14] MEDS ORDERED: D50W 25 GM/50 ML SYRINGE IV PRN (20:57)
[2022-04-14] MEDS ORDERED: GLUCAGON 1 MG/VIAL IM PRN (20:57)
[2022-04-14] MEDS ORDERED: ACETAMINOPHEN 325 MG TABLET PO PRN (21:01)
[2022-04-14] MEDS ORDERED: DIPHENHYDRAMINE 25 MG TAB/CAP PO PRN (21:03)
[2022-04-14] MEDS ORDERED: POLYETHYL GLY 3350 17 GM/DOSE PO PRN (21:03)
[2022-04-14] MEDS ORDERED: FUROSEMIDE 40 MG/4 ML VIAL IV ONE (21:03)
[2022-04-14] MEDS ORDERED: LOPERAMIDE HCL 2 MG CAPSULE PO PRN (21:03)
[2022-04-14] MEDS ORDERED: ONDANSETRON 4 MG/2 ML VIAL IV PRN (21:03)
[2022-04-14] MEDS ORDERED: ENOXAPARIN 40 MG/0.4 ML SQ SCH (21:07)
[2022-04-14] MEDS ORDERED: FUROSEMIDE 40 MG/4 ML VIAL ONE ×2 (21:39→21:40)
[2022-04-14 21:40] LABS: Absolute Lymphocytes (CBC) 0.5 K/uL (0.7-4.9); Lymphocytes % 10.9 % (15.3-44.8); MCV 102.9 fL (80-100); MPV 9.6 fL (7.6-11.3); RBC Red Blood Cell Count 4.37 M/uL (4.33-5.43)
[2022-04-14] MEDS ORDERED: NA CHLORIDE 0.9% 100 ML ONE (21:40)
[2022-04-14] MEDS ORDERED: FUROSEMIDE 20 MG/ 2ML VIAL ONE (21:40)
[2022-04-14 21:47] LABS: Protime INR 1.53
[2022-04-14] MEDS: FUROSEMIDE 100 MG in NA CHLORIDE 0.9% 90 ML IV SCH (21:47)
[2022-04-14 22:12] LABS: Albumin 3.3 g/dL (3.4-5.0); Bilirubin Direct 1.6 mg/dL (0-0.2); Bilirubin Total 2.9 mg/dL (0.2-1.0); Magnesium 2.2 mg/dL (1.8-2.4); Phosphorus 2.6 mg/dL (2.5-4.9); Potassium 4.8 mmol/L (3.5-5.1); Protein, Total 7.9 g/dL (6.4-8.2); Thyroid Stimulating Hormone 3.5 uIU/mL (0.360-3.740)
[2022-04-14] MEDS ORDERED: DIPHENHYDRAMINE 25 MG TAB/CAP ONE (22:15)
[2022-04-14] MEDS ORDERED: INSULIN -REGULAR HUMAN 50 UNIT/0.5 ML ML ONE (23:23)
[2022-04-14] MEDS: INSULIN -REGULAR HUMAN 50 UNIT/0.5 ML ML SQ SCH (23:25)
[2022-04-15] MEDS ORDERED: D10W 125 ML IV PRN (01:34)
[2022-04-15 04:17] LABS: Absolute Lymphocytes (CBC) 0.6 K/uL (0.7-4.9); Hematocrit 43.4 % (39.6-49.0); Lymphocytes % 13.2 % (15.3-44.8); MCV 101.9 fL (80-100); RBC Red Blood Cell Count 4.26 M/uL (4.33-5.43)
[2022-04-15 04:35] LABS: Magnesium 2.1 mg/dL (1.8-2.4); Potassium 4.4 mmol/L (3.5-5.1)
[2022-04-15] MEDS ORDERED: FUROSEMIDE 40 MG/4 ML VIAL ONE (06:42)
[2022-04-15] MEDS ORDERED: FUROSEMIDE 20 MG/ 2ML VIAL ONE (06:42)
[2022-04-15] MEDS ORDERED: NA CHLORIDE 0.9% 100 ML IV ONE (06:43)
[2022-04-15] MEDS: FUROSEMIDE 100 MG in NA CHLORIDE 0.9% 90 ML IV SCH ×2 (06:45→17:38)
[2022-04-15] MEDS: INSULIN -REGULAR HUMAN 50 UNIT/0.5 ML ML SQ SCH ×4 (07:30→22:51)
[2022-04-15] MEDS ORDERED: INFLUENZA VACCINE (for 6+ mo) 0.5 ML DOSE IMVAC ONE (08:00)
--- NOTE | 2022-04-15 08:17 | RAD REPORT ---
EXAM DESCRIPTION: RAD - Chest Pa And Lat (2 Views) - 04/15/2022 7:48 am CLINICAL HISTORY: pleural effusion Chest pain. COMPARISON: Chest Pa And Lat (2 Views) dated 03/03/2018; Chest Single View dated 02/10/2018; Chest Sin gle View dated 02/10/2018; Chest Pa And Lat (2 Views) dated 01/25/2018; Chest Abdomen Pelvis W Cont fracisco ed 04/15/2022 FINDINGS: Haziness in the right lung base is present likely representing mild infiltrate. No signifi cant pleural fluid is suspected bilaterally. The heart is mildly prominent in size. No displaced frac tures.
--- NOTE | 2022-04-15 08:20 | RAD REPORT ---
EXAM DESCRIPTION: CT - Chest Abdomen Pelvis W Cont - 04/15/2022 7:35 am CLINICAL HISTORY: Chest and abdomen pain. Cirrhosis, ascites, anasarca, pleural effusion COMPARISON: No comparisons TECHNIQUE: Approximately 100 mL nonionic IV contrast was administered to the patient. All CT scans are performed using dose optimization technique as appropriate and may include automated exposure control or mA/KV adjustment according to patient size. FINDINGS: Hazy opacity is present in the right lung base which may represent mild infiltrate. Mild a telectasis also likely present right lower lobe.Minimal right pleural fluid.No left pleural fluid or pericardial fluid.No intrathoracic adenopathy.Moderate bilateral gynecomastia. Diffuse fatty liver is identified. The spleen is normal in size. Both adrenal glands are normal. No h ydronephrosis of either kidney. Benign right renal cysts. No pancreatic mass or ductal dilatation. No significant ascites. No bowel obstruction seen. No free air or free fluid. Prominent venous collat erals are present in left upper quadrant trace amount of free fluid in the pelvis noted. No pathologi c lymphadenopathy in the abdomen or pelvis. No worrisome osseous finding. IMPRESSION: No significant pleural effusions or volume of ascites present. Mild fatty liver is noted.
[2022-04-15] MEDS: SPIRONOLACTONE 100 MG TAB PO SCH ×2 (09:43→22:49)
[2022-04-15] MEDS: ENOXAPARIN 40 MG/0.4 ML SQ SCH (09:43)
[2022-04-15 10:18] LABS: Specific Gravity 1.014 (1.005-1.030); Urine Bilirubin NEGATIVE (Negative); Urine Blood Negative (Negative); Urine Clarity Clear (Clear); Urine Color Light-Yellow (Yellow); Urine Glucose NEGATIVE (Negative); Urine Protein NEGATIVE (Negative); Urine Urobilinogen Normal (Normal)
[2022-04-15 10:59] LABS: UR MICROALBUMIN < 0.5 mg/dL (< 1.9)
[2022-04-15] MEDS: METFORMIN HCL 500 MG TAB PO SCH (22:48)
--- NOTE | 2022-04-16 01:21 | PN ---
Subjective: Mr. Stout is doing a lot better. No chest pain, nausea, or vomiting. His edema is improved. Physical Examination: Vital Signs: His blood pressure 111/67, afebrile. General: He is comfortable, no major distress. He has generalized severe anasarca. He does not take his medications routinely. He does not come to the office on routine basis. Otherwise, decreased breath sounds bilaterally, but he has some improv ed air movement now. Assessment And Plan: Severe anasarca from cirrhosis of liver from fatty liver. Prognosis remains po or. He is on Lasix drip currently as he will not tolerate boluses of Lasix. At the same time, he is on high dose of Aldactone, which he said, he is not compliant about taking it. He does not follow h is diet, he does not lose weight and unfortunately carries a poor prognosis with this diagnosis. 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 The last time he went to casting and pasting supervisor was 2 years ago. He has been established at [facility]. Prognosis overall poor. RVD/MODL Voice ID: [id number] Report ID: [id number]
[2022-04-16] MEDS: FUROSEMIDE 100 MG in NA CHLORIDE 0.9% 90 ML IV SCH (03:46)
[2022-04-16 04:41] LABS: Absolute Lymphocytes (CBC) 0.7 K/uL (0.7-4.9); Hematocrit 45.8 % (39.6-49.0); Lymphocytes % 13.5 % (15.3-44.8); MCV 101.2 fL (80-100); MPV 8.8 fL (7.6-11.3); RBC Red Blood Cell Count 4.52 M/uL (4.33-5.43)
[2022-04-16] MEDS: INSULIN -REGULAR HUMAN 50 UNIT/0.5 ML ML SQ SCH ×2 (07:30→12:28)
[2022-04-16] MEDS: SPIRONOLACTONE 100 MG TAB PO SCH ×2 (09:00)
[2022-04-16] MEDS: ENOXAPARIN 40 MG/0.4 ML SQ SCH (09:52)
[2022-04-16] MEDS: METFORMIN HCL 500 MG TAB PO SCH (09:52)
[2022-04-16 13:41] VITALS: O2SAT 96
[2022-04-16 13:43] VITALS: BP 109/70; TEMP 96.9
--- NOTE | 2022-04-16 19:04 | EKG ---
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
== END 2022-04-16 14:20 | disposition home or self-care (01) ==
LOC: 2ND 18:50
PROVIDERS: ADMIT Internal Medicine; ATTEND Internal Medicine
DX: K74.60 Unspecified cirrhosis of liver (principal); K75.81 Nonalcoholic steatohepatitis (NASH); R60.1 Generalized edema; K76.0 Fatty (change of) liver, not elsewhere classified; Z91.14 Patient's other noncompliance with medication regimen
CPT/HCPCS: 93005; 85025 ×3; 80048 ×3; 36415 ×2; 83735 ×3; 84100; 85610; 82947 ×6; 80076; 85730; 84443; 81003; 83036; 82570; 82607; 82306; 82043; 71260; 74177; 71046; 87811; Q9967; J1940 ×5; J1815 ×5; J1650 ×2; G0379; G0378 ×3

== ENCOUNTER 2023-04-26 01:23 | Emergency (ER) | payer OTHER ==
--- OUTSIDE RECORDS SUMMARY | 2023-04-26 01:30 | XMS REPORT | Continuity of Care Document ---
:1960 Author Organization [facility] t Address [address] [facility] [facility] [place] [address] Care Team Providers Name Role Phone Evin Carter MD Primary Care Physician [phone] Kimo Mena MA Attending Clinician Unavailable Kirby Chen MD Attending Clinician Isacc Mae RN Attending Clinician Unavailable Shelley Bolaños Attending Clinician Unavailable Ernesto Scherer RN Attending Clinician Unavailable [facility] Attending Clinician Unavailable Eric Linton MD Attending Clinician ERIC LINTON Attending Clinician Unavailable Adrianne Granados MD Attending Clinician Dottie Coronado RD Attending Clinician Unavailable Moshe SHELBY, [facility] Helene Junior Attending Clinician [phone] Marian Wright LCSW Attending Clinician Unavailable Delisa Gunter Attending Clinician Unavailable Yolanda Anderson Attending Clinician Dinah Diamond Attending Clinician Unavailable Anastasiia Carson MA Attending Clinician Unavailable Anita Barroso MA Attending Clinician Unavailable Reva Kendall RN Attending Clinician Unavailable Timothy Chavarria MD Attending Clinician Neto Floydestrellacarin Elia Attending Clinician Aleyda Celio Attending Clinician ADRIANNE GRANADOS Attending Clinician Unavailable Payers Payer Name Policy Type Policy Number Effective Date Expiration Date S ource Problems Condition Condition Condition Status Onset Resolution Last Treating Co mments Source Name Details Category Date Date Treatment Clinician Date Encounter Encounter Disease Active Last [facility] St for for 07-31 Assessroly Day pre-transp pre-transp 00:00: t & Plan: Medical lant lant 00 [facility] evaluation evaluation g of this for liver for liver note transplant transplant might be different from the original. At this time he is not acceptabl e for transplan t given Body mass index is 49.49 kg/m2. He will return to clinic in 3 months for weight check and re-evalua tion. Portal Portal Disease Active 2021-[address] hypertensi hypertensi 2- Assessroly Day on on 00:00: t & Plan: Medical [address] [place] [address] g of this note might be different from the original. Patient with portal HTN as evidenced by R. Hydrothor ax s/p thoracent esis 2018 and evidence of collatera l vasculatu re on CT abdomen 04/2022. Patient's hydrothor ax currently controlle d on PO diuretic regimen. Will continue to monitor. Patient will require EGD for EV screening given his diagnosis of cirrhosis . Unconjugat Unconjugat Disease Active 2021-[address] ed ed 2- Assessroly Day hyperbilir hyperbilir 00:00: t & Plan: Medical ubinemia ubinemia [address] [facility] [address] g of this note might be different from the original. Noted on 05/2022 labs. Gilbert's disease is a likely etiology. We have ordered UGT1A1 genotype testing. Immunity Immunity Disease Active 2021-06 [facility] status status 2- Assessroly Day testing testing 00:00: t & Plan: Medic al 00 [facility] g of this note might be different from the original. CDC recommend s that all patients with chronic liver disease, regardles s of etiology, should be immunized to prevent hepatitis A and hepatitis B if they are not already immune. This should be done in addition to other age-appro priate vaccines. Patient without documente d immunity to hepatitis A or B and would benefit from these vaccines Metabolic Metabolic Disease Active 2021-[address] [facility] [address] syndrome syndrome Assessroly Sullivan es 00:00: t & Plan: Medical [address] [place] [address] g of this note might be different from the original. Diabetes and obesity are contribut ing to metabolic syndrome leading to progressi on of BRADLEY. We recommend working with your PCP to keep these factors well controlle d. Decompensa Decompensa Disease Recurre 2021-[address] [facility] [address] romel romel nce Edward Day hepatic hepatic 00:00: t & Plan: Medic al cirrhosis cirrhosis 00 [facility] g of this note is different from the original. Cirrhosis diagnosed by imaging and there is evidence of decompens ation in the form of hydrothor ax and varices. Cirrhosis likely secondary to fatty liver disease /metaboli c syndrome. Current MELD is 17. Continue to follow up with hepatolog y. Hydrothora Hydrothora Disease Active Last [facility] x x 11-28 Edward Day 00:00: t & Plan: Medical [address] [place] [address] g of this note might be different from the original. Patient with portal HTN as evidenced by R. Hydrothor ax s/p thoracent esis 2018 and evidence of collatera l vasculatu re on CT abdomen 04/2022. Patient's hydrothor ax currently controlle d on PO diuretic regimen. Will continue to monitor. Patient will require EGD for EV screening given his diagnosis of cirrhosis . Obesity Obesity Disease Active [facility] St 11-28 Edward Day 00:00: t & Plan: Medical [address] [place] [address] g of this note might be different from the original. Pt reports 80 lb weight loss. 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 Return in three months for weight managemen t. Cancer Cancer Disease Active Last [facility] St screening screening 11-28 Assessroly henson 00:00: t & Plan: Medical [address] [place] [address] g of this note might be different from the original. Cirrhosis , regardles s of etiology, is a risk factor for developme nt of hepatocel lular carcinoma with an annual incidence of 1.5-4.5%. We recommend surveilla nce for HCC with abdominal imaging and alphafeto protein every 6 months. Will check AFP at current encounter , we will have our patient's OSH CT review. Patient also is in need of screening colonosco py. Would benefit from EGD/colon oscopy with OSH GI closer to his home. Other Other Disease Recurre Last [facility] cirrhosis cirrhosis nce 630 Assessroly [place] of liver of liver 00:00: t & Plan: Med ical [address] [place] [address] g of this note might be different [...] BMI of 56.24 will limit this options. Abnormal Abnormal Disease Active [facility] liver [address] [facility] enzymes enzymes 00:00: [address] Immunity Immunity Disease Active [facility] testing [facility]:00: t & Plan: Medic al [address] [place] [address] g of this note might be different from the original. Serologic al tests will be completed to determine the presence of immunity to hepatitis A and B. If the patient does not have adequate immunity, we would recommend administr ation of appropria te vaccinati on as per CDC guideline s by the primary care provider. Type II Type II Disease Recurre Last [facility] diabetes diabetes nce 624 Assessmen [facility] mellitus mellitus 00:00: t & Plan: Med ical [address] [place] [address] g of this note might be different from the original. He will require glycemic control prior to transplan t. Pleural Pleural Disease Active 2017-06 [facility] effusion effusion 0- 00:00: Hospita 00 l Allergies, Adverse Reactions, Alerts Allergy Allergy Status Severity Reaction(s) Onset Inactive Treating Comm ents Source Name Type Date Date Clinician NO KNOWN Allergy Active [facility] Family History Family Member Diagnosis Comments Start Date Stop Date Source Natural brother Hypertension [facility] Natural father Hypertension [facility] Natural mother Arthritis [facility] Social History Social Habit Start Date Stop Date Quantity Comments Source History SDOH [facility] Std Drinks [facility] Center History SDOH [facility] Alcohol Binge [facility] History SDOH [facility] Alcohol Comment Medical C enter Sexual orientation [facility] Alcohol intake 2022-06-01 2022-06-[address] [facility] [address] Laurie es 00:00:00 00:00:00 non-drinker of Medical Ce nter alcohol (finding) History of Social 2022-06-01 2022-06-[address] [facility] [address] [facility] function 00:00:00 00:00:00 Medical Center History SDOH 2018-11-22 2018-11-22 [address] [facility] [address] maparo Alcohol Frequency 00:00:00 00:00:00 [facility] Tobacco use and 2018-11-22 2018-11-[address] [facility] exposure 00:00:00 00:00:00 non-user [facility] Sex Assigned At [birth year] [facility] sameers 00:00:00 00:00:00 [facility] Smoking Status Start Date Stop Date Source Never smoked tobacco [facility] Medications Ordered Filled Start Stop Current Ordering Indication Dosage Frequency Signature Comments Components Source Medication Medication Date Date Medication? Clinician (SIG) Name Name cholecalcif 2022- No [id number] Q7D Take [facility], 07-30 50,000 [facility] vitamin D3, 10:17: 00:00 Units by Glenn mcdonald 50,000 unit 59 :00 mouth once Ce nter capsule a week . cholecalcif 2022- No [id number] Q7D Take [facility], 07-30 50,000 [facility] vitamin D3, 10:17: 00:00 Units by Glenn mcdonald 50,000 unit 59 :00 mouth once Ce nter capsule a week . cholecalcif 2022- No [id number] Q7D Take [facility], 07-30 50,000 [facility] vitamin D3, 10:17: 00:00 Units by Glenn mcdonald 50,000 unit 59 :00 mouth once Ce nter capsule a week . cholecalcif 2022- No 1000U Q.5D Take 1,000 [facility], 07-30 Units by [facility] vitamin D3, 10:17: 00:00 mouth 2 Me dical 25 mcg 47 :00 (two) Center (1,000 times unit) daily. capsule cholecalcif 3-0 2023- No 1000U Q.5D Take 1,[address] quiana, 3- 03-01 Units by [facility] vitamin D3, 10:17: 00:00 mouth 2 Me dical 25 mcg 47 :00 (two) Center (1,000 times unit) daily. capsule cholecalcif 2023-0 2023- No 1000U Q.5D Take 1,[address] quiana, 3- 03-01 Units by [facility] vitamin D3, 10:17: 00:00 mouth 2 Me dical 25 mcg 47 :00 (two) Center (1,000 times unit) daily. capsule calcium 2022-0 Yes 1200mg Take 1,[address] carbonate/v 3-01 mg by [facility]ukes itamin D3 10:17: mouth Per Med ical (CALCIUM 25 spouse, pt Cente r WITH takes VITAMIN D Vitamin D ORAL) 25mg + Calcium 1200 mg one time a day . calcium 2022-0 Yes 1200mg Take 1,[address] carbonate/v 3-01 mg by [facility]ukes itamin D3 10:17: mouth Per Med ical (CALCIUM 25 spouse, pt Cente r WITH takes VITAMIN D Vitamin D ORAL) 25mg + Calcium 1200 mg one time a day . calcium 2022-0 Yes 1200mg Take 1,[address] carbonate/v 3-01 mg by Lukes itamin D3 10:17: mouth Per Med ical (CALCIUM 25 spouse, pt Cente r WITH takes VITAMIN D Vitamin D ORAL) 25mg + Calcium 1200 mg one time a day . promethazin 2021-06 Yes 1.25mL Take 1.[address] e-dextromet 2-29 mLs by Lukes horphan 13:33: mouth 4 Medical (PROMETHAZI 40 (four) [facility]) times 6.25-15 daily as mg/5 mL needed for syrup Cough. promethazin 2021-06 Yes 1.25mL Take 1.[address] e-dextromet 2-29 mLs by [facility]ukes horphan 13:33: mouth 4 Medical (PROMETHAZI 40 (four) [facility]) times 6.25-15 daily as mg/5 mL needed for syrup Cough. promethazin 2021-06 Yes 1.25mL Take 1.[address] e-dextromet 2-29 mLs by Lukes horphan 13:33: mouth 4 Medical (PROMETHAZI 40 (four) Center [facility]) times 6.25-15 daily as mg/5 mL needed for syrup Cough. furosemide 2020-0 [address]urosemide [facility] (LASIX) 20 1-03 20mg take Luke s MG tablet 00:00: 2 tablets Med ical 00 by mouth Center once daily adjust as directed each week. furosemide 2020-0 Yes [address]urosemide [facility] (LASIX) 20 1-03 20mg take Luke s MG tablet 00:00: 2 tablets Med ical 00 by mouth Center once daily adjust as directed each week. furosemide 2020-0 Yes Furosemide [facility] (LASIX) 20 1-03 20mg take Luke s MG tablet 00:00: 2 tablets Med ical 00 by mouth Center once daily adjust as directed each week. furosemide 2020-0 Yes Furosemide [facility] (LASIX) 20 1-03 20mg take Luke s MG tablet 00:00: 2 tablets Med ical 00 by mouth Center once daily adjust as directed each week. furosemide 2020-0 Yes Furosemide [facility] (LASIX) 20 1-03 20mg take Luke s MG tablet 00:00: 2 tablets Med ical 00 by mouth Center once daily adjust as directed each week. furosemide 2020-0 Yes Furosemide [facility] (LASIX) 20 1-03 20mg take Luke s MG tablet 00:00: 2 tablets Med ical 00 by mouth Center once daily adjust as directed each week. spironolact 2019-0 Yes 100mg QD Take [address] one 7-10 tablets [facility]ukes (ALDACTONE) 00:00: (100 mg Med ical 50 MG 00 total) by Center tablet mouth daily Adjust as directed. spironolact 2019-0 Yes 100mg QD Take [address] one 7-10 tablets [facility]ukes (ALDACTONE) 00:00: (100 mg Med ical 50 MG 00 total) by Center tablet mouth daily Adjust as directed. spironolact 2019-0 Yes 100mg QD Take [address] one 7-10 tablets [facility]ukes (ALDACTONE) 00:00: (100 mg Med ical 50 MG 00 total) by Center tablet mouth daily Adjust as directed. spironolact 2019-0 Yes 100mg QD Take [address] one 7-10 tablets [facility]ukes (ALDACTONE) 00:00: (100 mg Med ical 50 MG 00 total) by Center tablet mouth daily Adjust as directed. spironolact 2019-0 Yes 100mg QD Take [address] one 7-10 tablets [facility]ukes (ALDACTONE) 00:00: (100 mg Med ical 50 MG 00 total) by Center tablet mouth daily Adjust as directed. spironolact 2019-0 Yes 100mg QD Take [address] one 7-10 tablets [facility]ukes (ALDACTONE) 00:00: (100 mg Med ical 50 MG 00 total) by Center tablet mouth daily Adjust as directed. cholecalcif 2019-0 Yes [id number] Q7D Take [facility] quiana, 6-24 50,000 [facility] vitamin D3, 12:38: Units by Me dical 50,000 unit 18 mouth once Ce nter capsule a week . cholecalcif 2019-0 Yes [id number] Q7D Take [facility] quiana, 6-24 50,000 [facility] vitamin D3, 12:38: Units by Me dical 50,000 unit 18 mouth once Ce nter capsule a week . cholecalcif 2019-0 Yes [id number] Q7D Take [facility] quiana, 6-24 50,000 [facility] vitamin D3, 12:38: Units by Me dical 50,000 unit 18 mouth once Ce nter capsule a week . metFORMIN 2019-0 Yes 1000mg Take 1,[address] (GLUCOPHAGE 6-03 mg by Lukes ) 1000 MG 00:00: mouth 2 Medic al tablet 00 (two) Center times daily with breakfast and dinner . glimepiride 2019-0 Yes 4mg Take [address] (AMARYL) 4 6-03 by mouth [facility]ukes MG tablet 00:00: every Medical 00 morning Center before breakfast . metFORMIN 2019-0 Yes 1000mg Take 1,[address] (GLUCOPHAGE 6-03 mg by Lukes ) 1000 MG 00:00: mouth 2 Medic al tablet 00 (two) Center times daily with breakfast and dinner . glimepiride 2019-0 Yes 4mg Take [address] (AMARYL) 4 6-03 by mouth [facility]ukes MG tablet 00:00: every Medical 00 morning Center before breakfast . metFORMIN 2019-0 Yes 1000mg Take 1,[address] (GLUCOPHAGE 6-03 mg by Lukes ) 1000 MG 00:00: mouth 2 Medic al tablet 00 (two) Center times daily with breakfast and dinner . glimepiride 2019-0 Yes 4mg Take [address] (AMARYL) 4 6-03 by mouth [facility]ukes MG tablet 00:00: every Medical 00 morning Center before breakfast . metFORMIN 2019-0 Yes 1000mg Take 1,[address] (GLUCOPHAGE 6-03 mg by Lukes ) 1000 MG 00:00: mouth 2 Medic al tablet 00 (two) Center times daily with breakfast and dinner . glimepiride 2019-0 Yes 4mg Take [address] (AMARYL) 4 6-03 by mouth [facility]ukes MG tablet 00:00: every Medical 00 morning Center before breakfast . metFORMIN 2019-0 Yes 1000mg Take 1,[address] (GLUCOPHAGE 6-03 mg by Lukes ) 1000 MG 00:00: mouth 2 Medic al tablet 00 (two) Center times daily with breakfast and dinner . glimepiride 2019-0 Yes 4mg Take [address] (AMARYL) 4 6-03 by mouth [facility] MG tablet 00:00: every Medical 00 morning Center before breakfast . metFORMIN 2019-0 Yes 1000mg Take 1,[address] (GLUCOPHAGE 6-03 mg by Lukes ) 1000 MG 00:00: mouth 2 Medic al tablet 00 (two) Center times daily with breakfast and dinner . glimepiride 2019-0 Yes 4mg Take [address] (AMARYL) 4 6-03 by mouth [facility] MG tablet 00:00: every Medical 00 morning Center before breakfast . cholecalcif 2018- Yes [id number] QD Take Meth nisa quiana, 1- 50,000 st vitamin D3, 18:10: Units by Ho spita 50,000 unit 41 mouth l capsule daily. cholecalcif 2018- Yes [id number] QD Take Meth nisa quiana, 1- 50,000 st vitamin D3, 18:10: Units by Ho spita 50,000 unit 41 mouth l capsule daily. cholecalcif 2018- Yes [id number] QD Take Meth nisa quiana, - 50,000 st vitamin D3, 18:10: Units by Ho spita 50,000 unit 41 mouth l capsule daily. cholecalcif 2017-06 Yes [id number] QD Take Meth nisa quiana, 06-09 50,000 st vitamin D3, 18:10: Units by Ho spita 50,000 unit 41 mouth l capsule daily. cholecalcif 2017-06 Yes [id number] QD Take Meth nisa quiana, 06-09 50,000 st vitamin D3, 18:10: Units by Ho spita 50,000 unit 41 mouth l capsule daily. furosemide 2017-06 Yes [facility] (LASIX) 20 0-23 st mg tablet 00:00: Hospita 00 l furosemide 2017-06 Yes [facility] (LASIX) [facility] 0-23 st mg tablet 00:00: Hospita 00 l furosemide 2017-06 Yes [facility] (LASIX) [facility] 0-23 st mg tablet 00:00: Hospita 00 l furosemide 2017-06 Yes [facility] (LASIX) [facility] 0-23 st mg tablet 00:00: Hospita 00 l furosemide 2017-06 Yes [facility] (LASIX) 20 0-23 st mg tablet 00:00: Hospita 00 l spironolact 2017-06 Yes [facility] i one 0-10 st (ALDACTONE) 00:00: Hospit a 25 MG 00 l tablet spironolact 2017-06 Yes [facility] i one 0-10 st (ALDACTONE) 00:00: Hospit a 25 MG 00 l tablet spironolact 2017-06 Yes [facility] one 0-10 st (ALDACTONE) 00:00: Hospit a 25 MG 00 l tablet spironolact 2017-06 Yes Method i one 0-10 st (ALDACTONE) 00:00: Hospit a 25 MG 00 l tablet spironolact 2017-06 Yes [facility] i one 0-10 st (ALDACTONE) 00:00: Hospit a 25 MG 00 l tablet glimepiride 2017-06 Yes Method i (AMARYL) 4 0-03 st MG tablet 00:00: Hospita 00 l metFORMIN 2017-06 Yes [facility] (GLUCOPHAGE 0-03 st ) 1,000 mg 00:00: Hospita tablet 00 l glimepiride 2017-06 Yes Method i (AMARYL) 4 0-03 st MG tablet 00:00: Hospita 00 l metFORMIN 2017-06 Yes [facility] (GLUCOPHAGE 0-03 st ) 1,000 mg 00:00: Hospita tablet 00 l glimepiride 2017-06 Yes Method i (AMARYL) 4 0-03 st MG tablet 00:00: Hospita 00 l metFORMIN 2017-06 Yes [facility] (GLUCOPHAGE 0-03 st ) 1,000 mg 00:00: Hospita tablet 00 l glimepiride 2017-06 Yes Method i (AMARYL) 4 0-03 st MG tablet 00:00: Hospita 00 l metFORMIN 2017-06 Yes [facility] (GLUCOPHAGE 0-03 st ) 1,000 mg 00:00: Hospita tablet 00 l metFORMIN 2017-06 Yes [facility] (GLUCOPHAGE 0-03 st ) 1,000 mg 00:00: Hospita tablet 00 l glimepiride 2017-06 Yes Method i (AMARYL) 4 0-03 st MG tablet 00:00: Hospita 00 l Vital Signs Vital Name Observation Time Observation Value Comments Source Systolic blood 2022-08-06 11:01:00 116 mm[Hg] [facility] Diastolic blood 2022-08-06 11:01:00 69 mm[Hg] [facility] Heart rate 2022-08-06 11:01:00 85 /min [facility] Body temperature 2022-08-06 11:01:00 36.56 Ana Cristina [facility] Respiratory rate 2022-08-06 11:01:00 20 /min [facility] Body height 2022-08-06 11:01:00 167.6 cm [facility] Body weight 2022-08-06 11:01:00 141.522 kg [facility] BMI 2022-08-06 11:01:00 50.36 kg/m2 [facility] Oxygen saturation in 2022-08-06 11:01:00 98 /min [facility] Arterial blood by Medical Ce nter Pulse oximetry Procedures Procedure Date / Time Performing Clinician Source Performed CAROTID DOPPLER BILATERAL 2022-08-06 15:49:00 Eric Linton [facility] ECHO W CONTRAST & DOPPLER 2022-08-06 14:09:11 Eric Linton [facility] ECHO W CONTRAST & DOPPLER 2022-08-06 14:09:11 Khaderi, Eric [facility] ECG 12-LEAD 2022-08-06 13:59:12 Royer [facility] BLOOD GAS, ARTERIAL 2022-08-06 12:30:[address] [facility] [address] ABDOMEN WITH & WITHOUT 2022-07-30 12:40:00 MarileeAdrianne licona [facility] XR DXA BONE DENSITY STUDY 2022-07-30 12:02[facility]IE[facility] MIN 2022-07-30 11:46:00 Royer [facility] XR CHEST 2 VIEWS 2022-07-30 11:42:00 Royer [facility] BLOOD TYPING, AUTOMATED 2022-07-30 07:58:00 Royer [facility] TYPE AND SCREEN, AUTOMATED 2022-07-30 07:53:00 Royer [facility] DRUG SCREEN, URINE, 2022-07-30 07:52:00 Royer [facility] TRANSPLANT [facility] URINALYSIS W/ MICROSCOPIC 2022-07-30 07:52:00 Royer [facility] MISCELLANEOUS LAB ORDER 2022-07-30 07:51:00 Royer [facility] COMPREHENSIVE METABOLIC 2022-07-30 07:51:[address] [facility] BILIRUBIN, DIRECT 2022-07-30 07:51:00 [facility] GAMMA GLUTAMYL TRANSFERASE 2022-07-30 07:51:00 Royer [facility] (GGT) [facility] CALCIUM, IONIZED 2022-07-30 07:51:00 Royer [facility] MAGNESIUM 2022-07-30 07:51:00 Royer [facility] PHOSPHORUS 2022-07-30 07:51:00 Eric Linton [facility] CBC W/PLT COUNT & AUTO 2022-07-30 07:51:00 Eric Linton [facility] DIFFERENTIAL [facility] ACTIN (SMOOTH MUSCLE) 2022-07-30 07:51:00 Eric Linton [facility] ANTIBODY, IGG Medical Center TRANSFERRIN 2022-07-30 07:51:00 Eric Linton [facility] FERRITIN 2022-07-30 07:51:00 Eric Linton [facility] CERULOPLASMIN 2022-07-30 07:51:00 Eric Linton [facility] VITAMIN D, 25-HYDROXY 2022-07-30 07:51:00 Eric Linton [facility] LIPID PANEL 2022-07-30 07:51:00 Eric Linton [facility] HEMOGLOBIN A1C 2022-07-30 07:51:00 Eric Linton [facility] ETHANOL 2022-07-30 07:51:00 Eric Linton [facility] ALPHA FETOPROTEIN (AFP), 2022-07-30 07:51:00 Eric Linton [facility] TUMOR MARKER [facility] CARBOHYDRATE ANTIGEN 19-9 2022-07-30 07:51:00 Eric Linton [facility] (CA 19-9) [facility] CARCINOEMBRYONIC ANTIGEN 2022-07-30 07:51:00 Eric Linton [facility] (CEA) [facility] ZINC 2022-07-30 07:51:00 Royer Ericifeanyi Redmond [facility] URIC ACID 2022-07-30 07:51:00 Eric Linton [facility] TSH 2022-07-30 07:51:00 Eric Linton [facility] T4 2022-07-30 07:51:00 Eric Linton [facility] HEPATITIS A ANTIBODY, IGG 2022-07-30 07:51:00 Eric Linton [facility] HEPATITIS B CORE ANTIBODY, 2022-07-30 07:51:00 Eric Linton [facility] TOTAL [facility] HEPATITIS B CORE ANTIBODY, 2022-07-30 07:51:00 Eric Linton [facility] IGM [facility] MUMPS ANTIBODY, IGG 2022-07-30 07:51:00 Eric Linton [facility] RUBELLA ANTIBODY, IGG 2022-07-30 07:51:00 Eric Linton [facility] VARICELLA ZOSTER ANTIBODY, 2022-07-30 07:51:00 Eric Linton [facility] T SPOT TB 2022-07-30 07:51:00 Eric Linton [facility] [id number]\\, SERUM 2022-07-30 07:51:00 Eric Linton [facility] ALPHA-1 ANTITRYPSIN 2022-07-30 07:51:00 Eric Linton [facility] MUTATION ANALYSIS [facility] TOXOPLASMA GONDII ANTIBODY, 2022-07-30 07:51:00 Eric Linton [facility] IGG [facility] COCCIDIOIDES ANTIBODIES 2022-07-30 07:51:00 Eric Linton [facility] CBC W/PLT COUNT & AUTO 2022-07-30 07:51:00 Eric Linton [facility] DIFFERENTIAL [facility] FIBRINOGEN 2022-07-30 07:50:00 Eric Linton [facility] PROTHROMBIN TIME/INR 2022-07-30 07:50:00 Eric Linton [facility] APTT 2022-07-30 07:50:00 Eric Linton [facility] ANTI-NUCLEAR ANTIBODY (CUCO) 2022-07-30 07:50:00 Eric Linton [facility] MITOCHONDRIA M2 ANTIBODY 2022-07-30 07:50:00 Eric Linton [facility] (IGG) [facility] IRON, TIBC, % SAT. (WITHOUT 2022-07-30 07:50[facility] T3 2022-07-30 07:50:00 Eric Linton [facility] HEPATITIS B SURFACE ANTIGEN 2022-07-30 07:50[facility]-07-30 07:50:00 Eric Linton [facility] HEPATITIS C ANTIBODY 2022-07-30 07:50:00 Eric Linton [facility] HC LAB HIV-1 AG W/HIV-1&2 2022-07-30 07:50:00 Eric Linton [facility] AB [facility] CYTOMEGALOVIRUS ANTIBODY, 2022-07-30 07:50:00 Eric Linton [facility] [facility] IGG [facility] EBV ANTIBODY, IGM 2022-07-30 07:50:00 Eric Linton [facility] RUBEOLA ANTIBODY IGG 2022-07-30 07:50:00 Eric Linton [facility] CRYPTOCOCCAL ANTIGEN 2022-07-30 07:50:00 Eric Linton [facility] RPR 2022-07-30 07:50:00 Eric Linton [facility] PSA 2022-07-30 07:50:00 Eric Linton [facility] TESTOSTERONE, FREE + TOTAL 2022-07-30 07:50:00 Eric Linton [facility] STRONGYLOIDES ANTIBODY, IGG 2022-07-30 07:50:[address] [facility] CUCO TITER AND PATTERN 2022-07-30 07:50:00 Eric Linton [facility] BASIC METABOLIC PANEL 2022-05-29 16:15:00 AnuduAnnelise [facility] HEPATIC FUNCTION PANEL 2022-05-29 16:15:00 Anudu, Annelise [facility] CBC W/PLT COUNT & AUTO 2022-05-29 16:15:00 [facility] PROTHROMBIN TIME/INR 2022-05-29 16:15:00 [facility] ALPHA FETOPROTEIN (AFP), 2022-05-29 16:15:00 Vanisherlynray [facility] TUMOR MARKER [facility] CBC W/PLT COUNT & AUTO 2022-05-29 16:15:00 VaniudAnnelise bell [facility] DIFFERENTIAL [facility] ZINC 2022-05-29 16:03:00 Marilee [facility] MAGNESIUM 2022-05-29 16:03:00 [facility] Plan of Care Planned Activity Planned Date Details Comments Source Future Scheduled 2025-07-[address] [facility] 00:[facility]:00 (procedure) [code = [facility] 86152761] Future Scheduled 2025-07-[address] [facility] 00:00:00 (procedure) [code = [facility] 28862746] Future Scheduled 2025-07-[address] [facility] Test 00:00:00 (procedure) [code = [facility] 87460405] Future Scheduled 2023-06-[address] [facility] 00:[facility] (12+) [code = Tobacco Cessation Counseling and Screening (12+)] Future Scheduled 2023-06-[address] [facility] Test 00:00:00 [facility] Screening (12+) [code = Tobacco Cessation Counseling and Screening (12+)] Future Scheduled 2023-06-[address] [facility] Test 00:00:00 [facility] Screening (12+) [code = Tobacco Cessation Counseling and Screening (12+)] Future Scheduled 2023-04-26 [facility] Test 01:25:42 malignant neoplasm of colon (procedure) [code = 137997600] Future Scheduled 2023-04-26 [facility] Test 01:25:42 malignant neoplasm of colon (procedure) [code = 237966803] Future Scheduled 2023-04-26 [facility]19 [facility] 01:25:42 [code = COVID-19 VACCINE (#1)] Future Scheduled 2023-04-26 [facility] Test 01:25:42 malignant neoplasm of colon (procedure) [code = 323016048] Future Scheduled 2023-04-26 SHINGLES VACCINES (1 [facility] 01:25:42 of 2) [code = SHINGLES VACCINES (1 of 2)] Future Scheduled 2023-04-26 [facility] Test 01:25:42 malignant neoplasm of colon (procedure) [code = 730409486] Future Scheduled 2023-04-26 [facility] Test 01:25:42 malignant neoplasm of colon (procedure) [code = 234150084] Future Scheduled 2023-04-26 65+ [facility] 01:25:42 VACCINE (1 - PCV) [code = 65+ PNEUMOCOCCAL VACCINE (1 - PCV)] Future Scheduled 2023-04-26 [facility] 01:25:42 [code = INFLUENZA VACCINE (#1)] Future Scheduled 2023-04-26 [facility] Test 01:25:42 malignant neoplasm of colon (procedure) [code = 709276387] Future Scheduled 2023-04-26 [facility] Test 01:25:42 malignant neoplasm of colon (procedure) [code = 401028801] Future Scheduled 2023-04-26 COVID-19 VACCINE (#1) [facility] 01:25:42 [code = COVID-19 VACCINE (#1)] Future Scheduled 2023-04-26 [facility] Test 01:25:42 malignant neoplasm of colon (procedure) [code = 636869977] Future Scheduled 2023-04-26 SHINGLES VACCINES (1 [facility] 01:25:42 of 2) [code = SHINGLES VACCINES (1 of 2)] Future Scheduled 2023-04-26 [facility] Test 01:25:42 malignant neoplasm of colon (procedure) [code = 036615581] Future Scheduled 2023-04-26 [facility] Test 01:25:42 malignant neoplasm of colon (procedure) [code = 669838948] Future Scheduled 2023-04-26 65+ [facility] Test 01:25:42 VACCINE (1 - PCV) [code = 65+ PNEUMOCOCCAL VACCINE (1 - PCV)] Future Scheduled 2023-04-26 INFLUENZA VACCINE (#1) [facility] Test 01:25:42 [code = INFLUENZA VACCINE (#1)] Future Scheduled 2023-01-[address] [facility] Test 00:00:00 (Season Ended) [code = Medic al Center INFLUENZA VACCINE (Season Ended)] Future Scheduled 2023-01-30 Influenza Vaccine (#1[facility] [code = Influenza Medical Ce nter Vaccine (#1)] Future Scheduled 2023-01-30 Influenza Vaccine (#1[facility] 00:00:00 [code = Influenza Medical Ce nter Vaccine (#1)] Future Scheduled 2022-08-31 COVID-19 [facility]ACCINE (#[facility] 01:42:21 [code = COVID-19 VACCINE (#1)] Future Scheduled 2022-08-31 [facility] [code = COLONOSCOPY SCREENING] Future Scheduled 2022-08-31 SHINGLES VACCINES (1 [facility] 01:42:21 of 2) [code = SHINGLES VACCINES (1 of 2)] Future Scheduled 2022-08-31 INFLUENZA VACCINE Method [facility] Hospital Test 01:42:21 [code = INFLUENZA VACCINE] Future Scheduled 2022-06-[address] [facility] Test 00:00:00 (12+) [code = Medical Center DEPRESSION SCREENING (12+)] Future Scheduled 2022-06-[address] [facility] Test 00:00:00 (12+) [code = Medical Center DEPRESSION SCREENING (12+)] Future Scheduled 2022-06-01 FALLS RISK SCREENING [facility] Test 00:00:00 [code = FALLS RISK Medical C enter SCREENING] Future Scheduled 2022-06-[address] [facility] Test 00:00:00 (12+) [code = Medical Center DEPRESSION SCREENING (12+)] Future Scheduled 2022-06-01 FALLS RISK SCREENING [facility] Test 00:00:00 [code = FALLS RISK Medical C enter SCREENING] Future Scheduled 2022-04-06 HEPATITIS B VACCINES Met [facility] Test 07:13:28 (1 of 3 - 3-dose series) [code = HEPATITIS B VACCINES (1 of 3 - 3-dose series)] Future Scheduled 2022-04-06 COVID-19 VACCINE (#1) [facility] Test 07:13:28 [code = COVID-19 VACCINE (#1)] Future Scheduled 2022-04-06 COLONOSCOPY SCREENING [facility] Test 07:13:28 [code = COLONOSCOPY SCREENING] Future Scheduled 2022-04-06 SHINGLES VACCINES (1 Met [facility] Test 07:13:28 of 2) [code = SHINGLES VACCINES (1 of 2)] Future Scheduled 2022-04-06 INFLUENZA VACCINE Method [facility] Test 07:13:28 [code = INFLUENZA VACCINE] Future Scheduled 2022-04-06 HEPATITIS B VACCINES Met [facility] Test 07:13:28 (1 of 3 - 3-dose series) [code = HEPATITIS B VACCINES (1 of 3 - 3-dose series)] Future Scheduled 2022-04-06 COVID-19 VACCINE (#1) [facility] Test 07:13:28 [code = COVID-19 VACCINE (#1)] Future Scheduled 2022-04-06 COLONOSCOPY SCREENING [facility] Test 07:13:28 [code = COLONOSCOPY SCREENING] Future Scheduled 2022-04-06 SHINGLES VACCINES (1 Met [facility] Test 07:13:28 of 2) [code = SHINGLES VACCINES (1 of 2)] Future Scheduled 2022-04-06 INFLUENZA VACCINE Method [facility] Hospital Test 07:13:28 [code = INFLUENZA VACCINE] Future Scheduled 2018-11-[address] [facility] 00[facility]00 [facility] Center (procedure) [code = 50171665] Future Scheduled 2018-11-[address] [facility] [facility] 00:00:00 [facility] Center (procedure) [code = 46947409] Future Scheduled 2018-11-[address] [facility] [facility] 00:00:00 measurement Medical Center (procedure) [code = 99410410] Future Scheduled 1977 DTAP/TDAP/TD [facility]ACCINES [facility] (1 - Tdap) [code = Medical C enter DTAP/TDAP/TD VACCINES (1 - Tdap)] Future Scheduled 1977 SHINGLES VACCINES ([address] [facility] Test 00:00:00 of 2) [code = SHINGLES Medic al Center VACCINES (1 of 2)] Future Scheduled 1977 DTAP/TDAP/TD [facility]ACCINES [facility] 00:00:00 (1 - Tdap) [code = Medical C enter DTAP/TDAP/TD VACCINES (1 - Tdap)] Future Scheduled 1977 SHINGLES VACCINES ([address] [facility] Test 00:00:00 of 2) [code = SHINGLES Medic al Center VACCINES (1 of 2)] Future Scheduled 1977 DTAP/TDAP/TD VACCINES [facility] 00:00:00 (1 - Tdap) [code = Medical C enter DTAP/TDAP/TD VACCINES (1 - Tdap)] Future Scheduled 1977 SHINGLES VACCINES ([address] [facility] Test 00:00:00 of 2) [code = SHINGLES Medic al Center VACCINES (1 of 2)] Future Scheduled 1968-01-[address] EX[address] [facility] 00:00:00 [code = DIABETIC EYE Medical Center EXAM] Future Scheduled 1968-01-[address] [facility] 00:[facility]:00 examination Medical Center (regime/therapy) [code = 920927076] Future Scheduled 1968-01-21 Urine screening for [facility] 00:00:00 protein (procedure) Medical Center [code = 853088108] Future Scheduled 1968-01-[address] DIAB[address] EYE EXAM [facility] Test 00:00:00 [code = DIABETIC EYE Medical Center EXAM] Future Scheduled 1968-01-[address] [facility] 00:00:00 examination Medical Center (regime/therapy) [code = 153002522] Future Scheduled 1968-01-21 Urine screening for [facility] 00:00:00 protein (procedure) Medical Center [code = 136068442] Future Scheduled 1968-01-[address] DIABETIC EYE EXAM [facility] Test 00:00:00 [code = DIABETIC EYE Medical Center EXAM] Future Scheduled 1968-01-[address] [facility] 00:00:00 examination Medical Center (regime/therapy) [code = 653412689] Future Scheduled 1968-01-21 Urine screening for [facility] Test 00:00:00 protein (procedure) Medical Center [code = 706244533] Future Scheduled 1964-01-[address] [facility] Test 00:00:00 0-64 YRS (1 - PCV) Medical C enter [code = PNEUMOCOCCAL VACCINE 0-64 YRS (1 - PCV)] Future Scheduled 1964-01-21 PNEUMOCOCCAL 65+ YRS [facility] Test 00:00:00 (1 - PCV) [code = Medical Ce nter PNEUMOCOCCAL 65+ YRS (1 - PCV)] Future Scheduled 1964-01-21 PNEUMOCOCCAL 65+ YRS [facility] Test 00:00:00 (1 - PCV) [code = Medical Ce nter PNEUMOCOCCAL 65+ YRS (1 - PCV)] Future Scheduled 1963 COVID-19 VACCINE (#1[facility] 00:[facility]:00 [code = COVID-[address] VACCINE (#1)] Future Scheduled 1963 COVID-19 VACCINE (#1[facility] 00:00:00 [code = COVID-[address] VACCINE (#1)] Future Scheduled 1958 COVID-19 VACCINE (#1[facility] 00:00:00 [code = COVID-[address] VACCINE (#1)] Future Scheduled [address] [facility] 00:00:00 (combo) [code = CT Medical C enter Colonography (combo)] Future Scheduled [address] [facility] Test 00:00:00 malignant neoplasm of Medica l Center colon (procedure) [code = 295157300] Future Scheduled [address] [facility] Test 00:00:00 malignant neoplasm of Medica l Center colon (procedure) [code = 673562838] Future Scheduled [address] [facility] Test 00:00:00 malignant neoplasm of Medica l Center colon (procedure) [code = 776805376] Future Scheduled [address] [facility] Test 00:00:00 malignant neoplasm of Medica l Center colon (procedure) [code = 975429287] Future Scheduled 1960 Sigmoidoscopy [code [facility]oscopy] Medical Cente r Future Scheduled [address] [facility] 00:00:00 (combo) [code = CT Medical C enter Colonography (combo)] Future Scheduled [address] [facility] Test 00:00:00 malignant neoplasm of Medica l Center colon (procedure) [code = 238739440] Future Scheduled [address] [facility] Test 00:00:00 malignant neoplasm of Medica l Center colon (procedure) [code = 086963065] Future Scheduled [address] [facility] Test 00:00:00 malignant neoplasm of Medica l Center colon (procedure) [code = 133207728] Future Scheduled [address] [facility] Test 00:00:00 malignant neoplasm of Medica l Center colon (procedure) [code = 053403750] Future Scheduled 1960 Sigmoidoscopy [facility] [address] [facility] 00:00:00 (combo) [code = CT Medical C enter Colonography (combo)] Future Scheduled [address] [facility] Test 00:00:00 malignant neoplasm of Medica l Center colon (procedure) [code = 660942570] Future Scheduled [address] [facility] Test 00:00:00 malignant neoplasm of Medica l Center colon (procedure) [code = 339311537] Future Scheduled [address] [facility] Test 00:00:00 malignant neoplasm of Medica l Center colon (procedure) [code = 328688897] Future Scheduled [address] [facility] Test 00:00:00 [facility] (procedure) [code = 143943371] Future Scheduled 1960 Sigmoidoscopy [code = [facility] 00:00:00 Sigmoidoscopy] Medical Cente r Encounters Start End Encounter Admission Attending Care Care Encounter Source Date/Time Date/Time Type Type Clinicians Facility Department ID 2022-11-20 2022-11-20 Abstract Trina, [facility] [id number] [facility]00 [facility] 2022-11-20 2022-11-20 Abstract Rebelkis, [facility] [id number] [facility] 00[facility]00 [facility] 2022-11-20 2022-11-20 Julissa Mena, [facility] [id number] 00:[facility] 00:00:00 [facility] 2022-11-20 2022-11-20 Julissa Mena, [facility] [id number] [facility] 00:00:00 [facility] 2022-08-19 2022-08-19 Telephone April [facility] [id number] 00:[facility]00 00:00:00 [facility] 2022-08-19 2022-08-19 Telephone April [facility] [id number] 00:[facility]00 00:00:00 [facility] 2022-08-18 2022-08-18 [facility] [id number] 00:[facility] 00:00:00 [facility] 2022-08-18 2022-08-18 Afshin Mae [facility] [id number] 00:[facility] 00:00:00 [facility] 2022-08-14 2022-08-14 Afshin Bolaños [facility] [id number] 00:[facility] 00:00:00 [facility] 2022-08-14 2022-08-14 Documentat Gilmer, [facility] [id number] 00:00[facility]00 00:00:00 [facility] 2022-08-14 2022-08-14 Documentat Miky [facility] [id number] 00:00:00 00:00:00 [facility] 2022-08-14 2022-08-14 Documentat Gilmer, [facility] [id number] 00:00[facility]00 00:00:00 [facility] 2022-08-13 2022-08-13 [facility] [id number] [facility] 00:00:00 [facility] 2022-08-13 2022-08-13 Documentat Stanton [facility] [id number] [facility]:00[facility]00 00:00:00 [facility] 2022-08-06 2022-08-06 [facility] [id number] 13:28:18 23:59:00 Encounter [facility] 2022-08-06 2022-08-06 [facility] [id number] 13:28:18 23:59:00 Encounter [facility] 2022-08-06 2022-08-06 [facility] [id number] 13:28:00 13:28:00 Encounter [facility] 2022-08-06 2022-08-06 [facility] [id number] 13:28:00 13:28:00 Encounter [facility] 2022-08-06 2022-08-06 [facility] [id number] 13:27:37 13:27:37 Encounter [facility] 2022-08-06 2022-08-06 [facility] [id number] 13:27:37 13:27:37 Encounter [facility] 2022-08-06 2022-08-06 Office April, [facility] [id number] 12:15:00 12:30:00 Visit [facility] 2022-08-06 2022-08-06 [facility] [id number] 12:15:00 12:30:00 Visit [facility] 2022-08-04 2022-08-04 [facility] [id number] 00:00[facility]00 00:00:00 [facility] 2022-08-04 2022-08-04 [facility] [id number] 00:00:00 00:00:00 ion [facility] 2022-07-30 2022-07-30 [facility] [id number] 11:33:36 23:59:00 Encounter [facility] 2022-07-30 2022-07-30 [facility] [id number] 11:33:36 23:59:00 Encounter [facility] 2022-07-30 2022-07-30 [facility] [id number] 11:32:52 11:32:52 Encounter [facility] 2022-07-30 2022-07-30 [facility] [id number] 11:32:52 11:32:52 Encounter [facility] 2022-07-30 2022-07-30 [facility] [id number] 11:31:39 11:31:39 Encounter [facility] 2022-07-30 2022-07-30 [facility] [id number] 11:31:39 11:31:39 Encounter [facility] 2022-07-30 2022-07-30 [facility] [id number] 11:00:00 11:30:00 Encounter [facility] 2022-07-30 2022-07-30 [facility] [id number] 11:00:00 11:30:00 Encounter [facility] 2022-07-30 2022-07-30 Evaluation Eric Linton [facility] [id number] 10:30:00 11:00:00 [facility] 2022-07-30 2022-07-30 Evaluation Eric Linton [facility] [id number] 10:30:00 11:00:00 [facility] 2022-07-30 2022-07-30 Evaluation Eric Linton [facility] [id number] 09:30:00 10:00:00 [facility] 2022-07-30 2022-07-30 Evaluation Eric Linton [facility] [id number] 09:30:00 10:00:00 [facility] 2022-07-30 2022-07-30 Evaluation Eric Linton [facility] [id number] 08:00:00 08:30:00 [facility] 2022-07-30 2022-07-30 Evaluation Eric Linton [facility] [id number] 08:00:00 08:30:00 [facility] 2022-07-30 2022-07-30 Trena Linton [facility] [id number] 07:10:00 07:20:00 Only [facility] 2022-07-30 2022-07-30 Orders TIMBO Linton [facility] [id number] 07:10:00 07:20:00 Only [facility] 2022-07-30 2022-07-30 Afshin Gunter [facility] [id number] [facility] 00:00:00 00:00:00 [facility] 2022-07-30 2022-07-30 Afshin Bolaños [facility] [id number] [facility] 00:[facility]:00 00:00:00 [facility] 2022-07-30 2022-07-30 Afshin Gunter [facility] [id number] [facility] 00:[facility]00 00:00:00 [facility] 2022-07-30 2022-07-30 Afshin Bolaños [facility] [id number] [facility] 00:00:00 00:00:00 [facility] 2022-07-22 2022-07-22 Telephone Daniel [facility] [id number] 00:00:00 00:00:00 [facility] 2022-07-22 2022-07-22 Afshin Diamond [facility] [id number] 00:00:00 00:00:00 [facility] 2022-07-22 2022-07-22 Telephone Daniel [facility] [id number] 00:00:00 00:00:00 [facility] 2022-07-22 2022-07-22 Afshin Diamond [facility] [id number] 00:00:00 00:00:00 [facility] 2022-07-18 2022-07-18 Documentat Bolaños, [facility] [id number] 00:00:00 00:00:00 [facility] 2022-07-18 2022-07-18 Documentat Bolaños, [facility] [id number] 00:00:00 00:00:00 [facility] 2022-07-18 2022-07-18 Documentat Bolaños, [facility] [id number] 00:00:00 00:00:00 [facility] 2022-07-18 2022-07-18 Documentat Bolaños, [facility] [id number] 00:00:00 00:00:00 [facility] 2022-07-17 2022-07-17 Orders Mae, [facility] [id number] 00:00:00 00:00:00 Only [facility] 2022-07-17 2022-07-17 Documentat Bolaños, [facility] [id number] 00:00:00 00:00:00 [facility] 2022-07-17 2022-07-17 Documentat Bolaños, [facility] [id number] 00:00:00 00:00:00 [facility] 2022-07-17 2022-07-17 Trena Mcneillleslie [facility] [id number] 00:00:00 00:00:00 Only [facility] 2022-07-17 2022-07-17 Documentat Bolaños, [facility] [id number] 00:00:00 00:00:00 [facility] 2022-07-17 2022-07-17 Documentat Bolaños, [facility] [id number] 00:00:00 00:00:00 [facility] 2022-07-11 2022-07-11 Telephone Bolaños, [facility] [id number] [facility] 00:00:00 00:00:00 [facility] 2022-07-11 2022-07-11 Orders Tu [facility] [id number] 00:00:00 00:00:00 Only [facility] 2022-07-11 2022-07-11 Documentat [facility] [id number] 00:00:00 00:00:00 [facility] 2022-07-11 2022-07-[address] [id number] 00:00:00 00:00:00 [facility] 2022-07-11 2022-07-11 Trena Mae [facility] [id number] 00:00:00 00:00:00 Only [facility] 2022-07-11 2022-07-11 Documentat [facility] [id number] 00:00:00 00:00:00 [facility] 2022-07-10 2022-07-10 Telephone ArcenioGeriWarner [facility] [id number] [facility]:00:00 00:00:[address] [facility] 2022-07-10 2022-07-10 Telephone Christierosalina [facility] [id number] 00:00:00 00:00:[address] , [facility] 2022-06-26 2022-06-26 Julissa Barroso [facility] [id number] 00:00:00 00:00:00 [facility] 2022-06-26 2022-06-26 Julissa Barroso [facility] [id number] 00:00:00 00:00:00 [facility] 2022-06-25 2022-06-25 Documentat Miky [facility] [id number] 00:00:00 00:00:00 [facility] 2022-06-25 2022-06-25 [id number] 00:00:00 00:00:00 [facility] 2022-06-23 2022-06-23 Documentarin Beardentanvir [facility] [id number] [facility]00 brittany [facility] 2022-06-23 2022-06-23 Document[facility] [id number] [facility]00 [facility] 2022-06-17 2022-06-17 [facility] [id number]00 [facility] 2022-06-17 2022-06-17 [facility] [id number] 00[facility]00 [facility] 2022-06-03 2022-06-03 Julissa Chavarria [facility] [id number] [facility] 00[facility]:00 [facility] 2022-06-03 2022-06-03 [facility] [id number] [facility] 00[facility]00 [facility] 2022-06-03 2022-06-03 Timothy Cordova [facility] [id number] [facility] 00[facility]:00 [facility] 2022-06-03 2022-06-03 Afshin Kendall [facility] [id number] 00[facility]:00 [facility] 2022-06-02 2022-06-02 Santana Floyd [facility] [id number] [facility] 00[facility]00:00 [facility] 2022-06-02 2022-06-02 Telephone Everett [facility] [id number] [facility] 00:00:00 Paestrellaamalia [facility] 2022-05-29 2022-05-29 Office EL Marilee [facility] [id number] [facility] 14:00:[facility] 15:00:00 Visit [facility] 2022-05-29 2022-05-29 Office Marilee [facility] [id number] [facility] 14:00:[facility] 15:00:00 Visit [facility] 2022-05-22 2022-05-22 Ambulatory IE [facility] [id number] Memoria 20:15:00 20:15:00 Pre-Reg Bariatric 00 l Surgery [facility] 2022-05-22 2022-05-22 Ambulatory IE MG [id number] Memoria 20:15:00 20:15:00 Pre-Reg Bariatric 00 l Surgery [facility] 2022-05-22 2022-05-22 Outpatient IE IE [id number] [facility]oria 14:15:00 14:15:00 00 l [place] 2022-05-22 2022-05-22 [id number] 14:15:00 14:15:00 Celio 00 Results Test Description Test Time Test Comments Results Result Sour e Comments ECG 12 lead Ventricular Rate [address] 9 BPMAtrial Rate 75 BPMP-R [facility] 08:59:15 Interval 202 msQRS Medica l Duration 80 msQ-T Center Interval 400 msQTC Calculation(Bazett) 446 msP [place] 53 degreesR [place] 86 degreesT [place] 18 degrees Normal sinus rhythmLow voltage QRSNonspecific T wave abnormalityAbnormal ECGNo previous ECGs availableConfirmed by Jose Reyna ([id number]) on 08/07/2022 8:59:11 AM ECG 12 lead Ventricular Rate [address] 9 BPMAtrial Rate 75 BPMP-R [facility] 08:59:15 Interval 202 msQRS Medica l Duration 80 msQ-T Center Interval 400 msQTC Calculation(Bazett) 446 msP [place] 53 degreesR [place] 86 degreesT [place] 18 degrees Normal sinus rhythmLow voltage QRSNonspecific T wave abnormalityAbnormal ECGNo previous ECGs availableConfirmed by Jose Reyna ([id number]) on 08/07/2022 8:59:11 AM ECHO W CONTRAST Ejection FractionSLEH [facility] & DOPPLER 8 ECHO HEARTLAB MKCKESSON L ukes 18:52:36 [facility] ECHO W CONTRAST Ejection FractionSLEH [facility] DOPPLER 8 ECHO HEARTLAB MKCKESSON L ukes 18:52:36 [facility] ECHO W CONTRAST Ejection FractionSLEH [facility] DOPPLER 8 ECHO HEARTLAB MKCKESSON L ukes 18:52:36 [facility] Carotid doppler Ejection FractionSLEH [facility] bilateral 8 ECHO HEARTLAB MKCKESSON L ukes 18:03:30 [facility] Carotid doppler Ejection FractionSLEH [facility] bilateral 8 ECHO HEARTLAB MKCKESSON L ukes 18:03:30 [facility] Carotid doppler Ejection FractionSLEH [facility] bilateral 8 ECHO HEARTLAB MKCKESSON L ukes 18:03:30 [facility] BLOOD GAS, ARTERIAL 2022-08-06 12:45:49 Test Item Value Reference Range Interpretation Comme nts PH ARTERIAL (BEAKER) (test code = 383) 7.45 7.35-7.45 PCO2 ARTERIAL (BEAKER) (test code = 384) 30 mm Hg 35-45 L PO2 ARTERIAL (BEAKER) (test code = 385) 104 mm Hg 80-90 H O2 SATURATION ARTERIAL (BEAKER) (test code = 386) 98.0 % 96.0 -97.0 H HCO3 ARTERIAL (BEAKER) (test code = 388) 20 mmol/L 21-29 L BASE EXCESS ARTERIAL (BEAKER) (test code = 387) -2.4 mmol/L -2.0-3 .0 L PATIENT TEMPERATURE (BEAKER) (test code = 1818) 37.0 FIO2 (BEAKER) (test code = 1819) 21.0 Drug screen, urine, [id number] 20:29:14 Test Item Value Reference Range Interpretation Comments Scan Result (test code = See Scanned Report [id number]) DAJA (test code = DAJA) See [facility] Report [facility], [id number] 20:29:14 Test Item Value Reference Range Interpretation Comments Scan Result (test code = See Scanned Report [id number]) DAJA (test code = DAJA) See Scanned Report [facility], [id number] 20:29:14 Test Item Value Reference Range Interpretation Comments Scan Result (test code = See Scanned Report [id number]) DAJA (test code = DAJA) See Scanned Report [facility] SP[facility] [id number] 09:40:49 Test Item Value Reference Range Interpretation Comments T-SPOT TB (BEAKER) (test code = See attachment 1683) NEG CONTROL SPOT COUNT (BEAKER) See attachment (test code = 1684) PANEL A SPOT (BEAKER) (test code See attachment = 1685) PANEL B SPOT (BEAKER) (test code See attachment = 1686) POS CONTROL SPOT CT (BEAKER) See attachment (test code = 1687) SCAN RESULT (test code = 5953548) CT, ABDOMEN, [id number] 13:39:00Referring: Dr. Evin Maria Prctocol-Triple Phase [facility] : 1960 Sex: MFINAL REPORT ABDOMINAL CT DATED 08/02/2022 COMPARISON: November 22, 2018 CLINICAL INFORMATION: Liver disease, chronic, tumor screening TECHNIQUE: Axial images of the abdomen were obtained from diaphragm to the upper pelvis with and without intravenous contrast. This exam was performed accordingto our departmental dose-optimization program, which includes automated exposure control, adjustmentof the mA and/or kV according to patient size and/or use of interactive reconstruction technique. COMMENT: Liver normal in size. The margin liver is somewhat irregular. No abnormal enhancement or suspicious mass is seen in the liver. Spleen is normal in size. The splenic, superior mesenteric, portal, and hepatic veins are patent. Main portal vein measures 1.5 cm in size. No portal vein thrombosis is seen. Spleen are normal in size without focal abnormality. Gallbladder is contracted. No gallstone orbiliary dilatation is noted. Pancreas and adrenals are unremarkable. Both kidneys are normal in size and functioning with prompt bilateral excretion. A 1.5 cm cyst is seen in the upper pole left kidney. Several cysts are seen in the left kidney with largest measuring 2.7 x 3.6 cm. No hydronephrosis orhydroureter is present. Diverticular disease is seen in the large bowel without diverticulitis. The small bowel is unremarkable. Appendix is not visualized. No mass, adenopathy or ascites is present. IMPRESSION: 1. No suspicious hepatic mass.2. Bilateral renal cysts.3. Diverticulosis without diverticulitis. Signed: Lizz Arce [facility] Verified Date/Time: 08/02/2022 13:39:11 CT ABDOMEN WITH & WITHOUT IV [id number] 13:39:[address] DATED 08/02/2022 COMPARISON: November 22, 2018 CLINICAL INFORMATION: Liver disease, chronic, tumor screening TECHNIQUE: Axial images of the abdomen were obtained from diaphragm to the upper pelvis with and without intravenous contrast. This exam was performed according to our departmental dose-optimization program, which includes automated exposure control, adjustment of the mA and/or kV according to patient size and/or use of interactive reconstruction technique. COMMENT: Liver normal in size. The margin liver is somewhat irregular. No abnormal enhancement or suspicious mass is seen in the liver. Spleen is normal in size. The splenic, superior mesenteric, p ortal, and hepatic veins are patent. Main portal vein measures 1.5 cm in size. No portal vein thrombosis is seen. Spleen are normal in size without focal abnormality. Gallbladder is contracted. No gallstone or biliary dilatation is noted. Pancreas and adrenals are unremarkable. Both kidneys are normalin size and functioning with prompt bilateral excretion. A 1.5 cm cyst is seen in the upper pole left kidney. Several cysts are seen in the left kidney with largest measuring 2.7 x 3.6 cm. No hydronephrosis or hydroureter is present. Diverticular disease is seen in the large bowel without diverticulitis. The small bowel is unremarkable. Appendix is not visualized. No mass, adenopathy or ascites is present. IMPRESSION: 1. No suspicious hepatic mass.2. Bilateral renal cysts.3. Diverticulosis without diverticulitis. Signed: Lizz Arce Verified Date/Time: 08/02/2022 13:39:11 [facility] [id number] 13:39:00FINAL REPORT ABDOMINAL CT DATED 08/02/2022 COMPARISON: November 22, 2018 CLINICAL INFORMATION: Liver disease, chronic, tumor screening TECHNIQUE: Axial images of the abdomen were obtained from diaphragm to the upper pelvis with and without intravenous contrast. This exam was performed according to our departmental dose- optimization program, which includes automated exposure control, adjustment of the mA and/or kV according to patient size and/or use of interactive reconstruction technique. COMMENT: Liver normal in size. The margin liver is somewhat irregular. No abnormal enhancement or suspicious mass is seen in the liver. Spleen is normal in size. The splenic, superior mesenteric, portal, and hepatic veins are patent. Main portal vein measures 1.5 cm in size. No portal vein thrombosis is seen. Spleen are normal in size without focal abnormality. Gallbladder is contracted. No gallstone or biliary dilatation is noted. Pancreas and adrenals are unremarkable. Both kidneys are normalin size and functioning with prompt bilateral excretion. A 1.5 cm cyst is seen in the upper pole left kidney. Several cysts are seen in the left kidney with largest measuring 2.7 x 3.6 cm. No hydronephrosis or hydroureter is present. Diverticular disease is seen in the large bowel without diverticulitis. The small bowel is unremarkable. Appendix is not visualized. No mass, adenopathy or ascites is present. IMPRESSION: 1. No suspicious hepatic mass.2. Bilateral renal cysts.3. Diverticulosis without diverticulitis. Signed: Lizz Arce Verified Date/Time: 08/02/2022 13:39:11 [facility] HospitalANA TITER AND [id number] 12:16:21 Test Item Value Reference Range Interpretation Comments CUCO TITER (BEAKER) (test code = :40 1541) CUCO PATTERN (BEAKER) (test code = Homogeneous 1781) ANTI-NUCLEAR ANTIBODY (CUCO)2022-07-31 12:16:10 Test Item Value Reference Range Interpretation Comments ANTI-NUCLEAR ANTIBODY (CUCO) (BEAKER) Positive Negative A (test code = 418) Test performed by IFA method.[id number] 16:32:21 Test Item Value Reference Range Interpretation Comments T4 TOTAL (BEAKER) (test code = 895) 7.0 ug/dL 4.9-11.7 Film Projector Operator ID - [id number] 16:30:49 Test Item Value Reference Range Interpretation Comments FERRITIN (BEAKER) (test code = 265.44 ng/mL 5.00-275.00 361) Film Projector Operator ID - [id number] 16:14:28 Test Item Value Reference Range Interpretation Comments T3 TOTAL (BEAKER) (test code = 0.76 ng/mL 0.60-1.81 656) Film Projector Operator ID - DEDE MANDIBLE, MIN 4 [id number] 13:46:00Referring: Dr. Evin Au for Exam:->BRADLEY, cirrhosis, pre liver [facility] evaluationB[facility]IE [facility] : 1960 Sex: MFINAL REPORT MANDIBLE 5 VIEWS HISTORY: Liver transplant evaluation COMPARISON: No comparison mandibular imaging FINDINGS: Marielle, PA, bilateral oblique, and lateral images of the mandible were obtained. No mandibular fracture is visualized. No bony destruction is visualized in the mandible. No periapical abscess or dental caries are visualized in the mandible. Bilateral mandibular wisdomteeth are present. A left maxillary wisdom tooth is present. Is not certain if there is a right maxillary wisdom tooth. No air-fluid levels are visualized in the paranasal sinuses. Signed: Marycruz Damon Verified Date/Time: 07/30/2022 13:46:39 XR mandible 4 views [id number] 13:46:00FINAL REPORT MANDIBLE 5 VIEWS HISTORY: Liver transplant evaluation COMPARISON: No comparison mandibular imaging FINDINGS: Marielle, PA, bilateral oblique, and lateral images of the mandible were obtained. No mandibular fracture is visualized. No bony destruction is visualized in themandible. No periapical abscess or dental caries are visualized in the mandible. Bilateral mandibular wisdom teeth are present. A left maxillary wisdom tooth is present. Is not certain if there is a right maxillary wisdom tooth. No air-fluid levels are visualized in the paranasal sinuses. Signed: Lyndsey Damon Verified Date/Time: 07/30/2022 13:46:39 Electronically signed by: Renata GARAY 07/30/2022 01:46 [facility] views [id number] 13:46:00FINAL REPORT MANDIBLE 5 VIEWS HISTORY: Liver transplant evaluation COMPARISON: No comparison mandibular imaging FINDINGS: Marielle, PA, bilateral oblique, and lateral images of the mandible were obtained. No mandibular fracture is visualized. No bony destruction is visualized in the mandible. No periapical abscess or dental caries are visualized in the mandible. Bilateral mandibular wisdom teeth are present. A left maxillary wisdom tooth is present. Is not certain if there is a right maxillary wisdom tooth. No air-fluid levels are visualized in the paranasal sinuses. Signed: Lyndsey Damon Verified Date/Time: 07/30/2022 13:46:39 Electronically signed by: Renata GARAY 07/30/2022 01:46 [facility] HospitalCRYPTOC[facility]CCAL ANTIGEN 2022-07-30 13:43:15 Test Item Value Reference Range Interpretation Comments CRYPTOCOCCAL ANTIGEN, SERUM Negative Negative, Interference (AMBER) (test code = 1828) HEMOGLOBIN [id number] 13:06:29 Test Item Value Reference Range Interpretation Comments HEMOGLOBIN A1C 7.7 % See_Comment H [Automated m essage] ELECTROPHORESIS (AMBER) The system which (test code = 3811) generated this result transmitted ref erence range: <=5.6%. The reference range was not used to int erpret this result as normal/abnormal . "The A1c is measured using a NGSP-certified method. HbA1c value equal to or greater than 6.5% as thediagnosis cutoff for diabetes. An HbA1c value of 5.7- 6.4% indicates increased risk for diabetes (prediabetes)."Film Projector Operator ID - ADMOperator ID - ADMRAD, CHEST, 2 [id number] 13:06:00Referring: Dr. Evin Au for Exam:->BRADLEY, cirrhosis, pre liver [facility] : 1960 Sex: MFINAL REPORT HISTORY: Cirrhosis, liver transplant evaluation COMPARISON: 11/22/2018 FINDINGS: The lungs are clear. Small right pleural effusion. No pneumothorax. The heart shadow is normal in size. The thoracic aorta is mildly tortuous. Mild degenerative changes are present in the spine. IMPRESSION: Small right pleural effusion. Signed: Lyndsey Damon MDReport Verified Date/Time: :06:24 XR chest 2 [id number] 13:06:00FINAL REPORT HISTORY: Cirrhosis, liver transplant evaluation COMPARISON: 11/22/2018 FINDINGS: The lungs are clear. Small right pleural effusion. No pneumothorax. The heart shadow isnormal in size. The thoracic aorta is mildly tortuous. Mild degenerative changes are present in the spine. IMPRESSION: Small right pleural effusion. Signed: Lyndsey Damon MDReport Verified Date/Time: 07/30/2022 13:06:24 [facility] 2 [id number] 13:06:00FINAL REPORT HISTORY: Cirrhosis, liver transplant evaluation COMPARISON: 11/22/2018 FINDINGS: The lungs are clear. Small right pleural effusion. No pneumothorax. The heart shadow isnormal in size. The thoracic aorta is mildly tortuous. Mild degenerative changes are present in the spine. IMPRESSION: Small right pleural effusion. Signed: Lyndsey Damon Verified Date/Time: 07/30/2022 13:06:24 [facility] HospitalRPR2023-03-01 13:05:11 Test Item Value Reference Range Interpretation Comments RPR SCREEN (PRABHAKARAKER) (test code = Nonreactive Nonreactive 420) RAD, BONE DENSITY [id number] 12:55:00Referring: Dr. Evin Au for Exam:->BRADLEY, cirrhosis, pre liver transplant [facility] : 1960 Sex: MFINAL REPORT BONE MINERAL DENSITY CLINICAL HISTORY: Cirrhosis, liver transplant evaluation COMPARISON: No prior comparison bone mineral density studies are available REPORT: Bone Mineral Density Measurement: Lumbar Spine (L1-L4): 1.772 g/rl7Fuzw Femoral Neck: 1.215 g/cm2 Standard Deviation as compared to the young adult population (T -score) Lumbar Spine: 4.6 Mean Femoral Neck: 1.1 Standard Deviation as compared to the age matched controls (Z-score) Lumbar Spine: 4.3Mean Femoral Neck: 1.7 There are no WHO criteria for the classification of osteopenia or osteoporosis in men. These measurements will serve as a baseline for future comparison. Signed: Lyndsey Damon Verified Date/Time: 07/30/2022 12:55:40 XR dxa bone density [id number] 12:55:00 FINAL REPORT BONE MINERAL DENSITY CLINICAL HISTORY: Cirrhosis, liver transplantevaluation COMPARISON: No prior comparison bone mineral density studies are available REPORT: Bone Mineral Density Measurement: Lumbar Spine (L1-L4): 1.772 g/ji6Chwq Femoral Neck: 1.215 g/cm2 Standard D eviation as compared to the young adult population (T -score) Lumbar Spine: 4.6 Mean Femoral Neck: 1.1 Standard Deviation as compared to the age matched controls (Z-score) Lumbar Spine: 4.3Mean FemoralNeck: 1.7 There are no WHO criteria for the classification of osteopenia or osteoporosis in men. These measurements will serve as a baseline for future comparison. Signed: Lyndsey Damon Verified Date/Time: 07/30/2022 12:55:40 [facility] HospitalXR dxa bone density [id number] 12:55:00FINAL REPORT BONE MINERAL DENSITY CLINICAL HISTORY: Cirrhosis, liver transplantevaluation COMPARISON: No prior comparison bone mineral density studies are available REPORT: Bone Mineral Density Measurement: Lumbar Spine (L1-L4): 1.772 g/tq3Ildj Femoral Neck: 1.215 g/cm2 Standard Deviation as compared to the young adult population (T -score) Lumbar Spine: 4.6 Mean Femoral Neck: 1.1 Standard Deviation as compared to the age matched controls (Z-score) Lumbar Spine: 4.3Mean FemoralNeck: 1.7 There are no WHO criteria for the classification of osteopenia or osteoporosis in men. These measurements will serve as a baseline for future comparison. Signed: Lyndsey Damon [facility] Verified Date/Time: 07/30/2022 12:55:40 [facility] RUBELLA ANTIBODY, [id number] 12:39:23 Test Item Value Reference Range Interpretation Comments RUBELLA IGG QUANTITATION (BEAKER) > IU/mL <8.0 H (test code = 572) Rubella IgG Result Interpretation: </= 7.0 IU/mL Negative - Presumed non- immune 8.0 - 9.9 IU/mL Equivocal >= 10.0 IU/mL Positive - Presumed immune VARICELLA ZOSTER ANTIBODY, [id number] 12:39:23 Test Item Value Reference Range Interpretation Comments VARICELLA ZOSTER IGG (AL) (BEAKER) 4.2 (test code = 3197) VARICELLA ZOSTER RESULT INTERPRETATIONS: <=0.8 Al Nonreactive: Presumed non- immune to VZV 0.9-1.0Al Equivocal >=1.1 Al Reactive: Presumed immune to VZV TOXOPLASMA GONDII ANTIBODY, [id number] 12:39:23 Test Item Value Reference Range Interpretation Comments TOXOPLASMA GONDII IGG QUANTITATIVE < IU/mL <10.0 (BEAKER) (test code = 3428) Toxoplasma Gondii IgG Result Interpretation: </= 9.9 IU/mL Normal 10-11 IU/mL Equivocal >/= 12IU/mL PositiveHEPATITIS B SURFACE [id number] 10:27:01 Test Item Value Reference Range Interpretation Comments HEPATITIS B SURFACE ANTIBODY < mIU/mL <8.0 (BEAKER) (test code = 647) Film Projector Operator ID - EMMANUELHIV-1 ANTIGEN WITH HIV-1/2 [id number] 10:26:35 Test Item Value Reference Range Interpretation Comments HIV-1 ANTIGEN WITH HIV 1\\T\\2 Nonreactive Nonreactive ANTIBODY (2) (BEAKER) (test code = 2586) Film Projector Operator ID - [id number] 10:26:33 Test Item Value Reference Range Interpretation Comments PROSTATE SPECIFIC ANTIGEN (BEAKER) 0.1 ng/mL 0.0-4.0 (test code = 844) Film Projector Operator ID - KEVINHEPATITIS B SURFACE [id number] 10:26:33 Test Item Value Reference Range Interpretation Comments HEPATITIS B SURFACE ANTIGEN (2) Nonreactive Nonreactive (BEAKER) (test code = 2585) Specimen is considered negative for HBsAg.HEPATITIS C [id number] 10:26:33 Test Item Value Reference Range Interpretation Comments HEPATITIS C ANTIBODY (BEAKER) Nonreactive Nonreactive (test code = 367) Film Projector Operator ID - KEVINALPHA FETOPROTEIN (AFP), TUMOR [id number] 10:21:30 Test Item Value Reference Range Interpretation Comments ALPHA-FETOPROTEIN (BEAKER) (test code < ng/mL <10.0 = 1094) Film Projector Operator ID - EMMWILHEPATITIS B CORE ANTIBODY, [id number] 10:19:54 Test Item Value Reference Range Interpretation Comments HEPATITIS B CORE TOTAL ANTIBODY Nonreactive Nonreactive (BEAKER) (test code = 497) Film Projector Operator ID - KEVINHEPATITIS A ANTIBODY, [id number] 10:19:54 Test Item Value Reference Range Interpretation Comments HEPATITIS A IGG ANTIBODY (BEAKER) Nonreactive Nonreactive (test code = 2797) Film Projector Operator ID - KEVINHEPATITIS B CORE ANTIBODY, [id number] 10:19:49 Test Item Value Reference Range Interpretation Comments HEPATITIS B CORE IGM ANTIBODY Nonreactive Nonreactive (BEAKER) (test code = 645) Film Projector Operator ID - EMMANUELCARCINOEMBRYONIC ANTIGEN (CEA)2022-07-30 10:19:48 Test Item Value Reference Range Interpretation Comments CARCINOEMBRYONIC ANTIGEN (BEAKER) 4.3 ng/mL 0.0-5.0 (test code = 685) Film Projector Operator ID - EMMANUELUrinalysis w/[id number] 10:19:21 Test Item Value Reference Range Interpretation Comments Color, UA (test Yellow code = 5778-6) Clarity, UA (test Clear code = 5767-9) Specific [place], 1.015 1.001-1.035 UA (test code = 5811-5) pH, UA (test code 5.5 5.0-8.0 = 5803-2) Protein, UA (test Negative Negative code = 76257-6) Glucose, UA (test Negative Negative code = 365) Ketones, UA (test Negative Negative code = 2514-8) Bilirubin, UA Negative Negative (test code = 92414-7) Blood, UA (test Negative Negative code = 98113-2) Nitrite, UA (test Negative Negative code = 5802-4) Leukocytes, UA Negative Negative (test code = 5799-2) Urobilinogen, UA 0.2 0.2-1.0 (test code = 56089-6) RBC, UA (test 1 See_Comment [Automated me ssage] code = 69754-7) The system [facility] generated this result transmit romel reference range : /HPF. The refer ence range was not u sed to interpret th is result as normal/abnormal . WBC, UA (test See_Comment [Automated me ssage] code = 5821-4) The system [facility] generated this result transmit romel reference range : /HPF. The refer ence range was not u sed to interpret th is result as normal/abnormal . Squam Epithel, UA See_Comment [Automate d message] (test code = The system [facility] 59443-2) generated this result transmit romel reference range : /HPF. The refer ence range was not u sed to interpret th is result as normal/abnormal . Hyaline Casts, UA 2 See_Comment [Automate d message] (test code = The system [facility] 31153-2) generated this result transmit romel reference range : /LPF. The refer ence range was not u sed to interpret th is result as normal/abnormal . Specimen Source Urine, Clean (test code = Catch 2795) DJAA (test code = Film Projector Operator ID - DAJA) [auto]Film Projector Operator ID - tech [facility] HospitalUrinalysis w/[id number] 10:19:21 Test Item Value Reference Range Interpretation Comments Color, UA (test Yellow code = 5778-6) Clarity, UA (test Clear code = 5767-9) Specific [place], 1.015 1.001-1.035 UA (test code = 5811-5) pH, UA (test code 5.5 5.0-8.0 = 5803-2) Protein, UA (test Negative Negative code = 97187-9) Glucose, UA (test Negative Negative code = 365) Ketones, UA (test Negative Negative code = 2514-8) Bilirubin, UA Negative Negative (test code = 14357-9) Blood, UA (test Negative Negative code = 59962-0) Nitrite, UA (test Negative Negative code = 5802-4) Leukocytes, UA Negative Negative (test code = 5799-2) Urobilinogen, UA 0.2 0.2-1.0 (test code = 96524-9) RBC, UA (test 1 See_Comment [Automated me ssage] code = 70423-7) The system [facility] generated this result transmit romel reference range : /HPF. The refer ence range was not u sed to interpret th is result as normal/abnormal . WBC, UA (test See_Comment [Automated me ssage] code = 5821-4) The system [facility] generated this result transmit romel reference range : /HPF. The refer ence range was not u sed to interpret th is result as normal/abnormal . Squam Epithel, UA See_Comment [Automate d message] (test code = The system [facility] 00180-7) generated this result transmit romel reference range : /HPF. The refer ence range was not u sed to interpret th is result as normal/abnormal . Hyaline Casts, UA 2 See_Comment [Automate d message] (test code = The system [facility] [employer] 94341-7) generated this result transmit romel reference range : /LPF. The refer ence range was not u sed to interpret th is result as normal/abnormal . Specimen Source Urine, Clean (test code = Catch 2795) DAJA (test code = Film Projector Operator ID - DAJA) [auto]Film Projector Operator ID - tech [facility]/Pkpbhzcmtoq3117-15-77 10:19:21 Test Item Value Reference Range Interpretation Comments Color, UA (test Yellow code = 5778-6) Clarity, UA (test Clear code = 5767-9) Specific [place], 1.015 1.001-1.035 UA (test code = 5811-5) pH, UA (test code 5.5 5.0-8.0 = 5803-2) Protein, UA (test Negative Negative code = 36978-0) Glucose, UA (test Negative Negative code = 365) Ketones, UA (test Negative Negative code = 2514-8) Bilirubin, UA Negative Negative (test code = 37098-6) Blood, UA (test Negative Negative code = 16048-8) Nitrite, UA (test Negative Negative code = 5802-4) Leukocytes, UA Negative Negative (test code = 5799-2) Urobilinogen, UA 0.2 0.2-1.0 (test code = 82978-5) RBC, UA (test 1 See_Comment [Automated me ssage] code = 72770-5) The system [facility] generated this result transmit romel reference range : /HPF. The refer ence range was not u sed to interpret th is result as normal/abnormal . WBC, UA (test See_Comment [Automated me ssage] code = 5821-4) The system [facility] generated this result transmit romel reference range : /HPF. The refer ence range was not u sed to interpret th is result as normal/abnormal . Squam Epithel, UA See_Comment [Automate d message] (test code = The system [employer] 46549-8) generated this result transmit romel reference range : /HPF. The refer ence range was not u sed to interpret th is result as normal/abnormal . Hyaline Casts, UA 2 See_Comment [Automate d message] (test code = The system [employer] 49474-3) generated this result transmit romel reference range : /LPF. The refer ence range was not u sed to interpret th is result as normal/abnormal . Specimen Source Urine, Clean (test code = Catch 2795) DAJA (test code = Film Projector Operator ID - DAJA) [auto]Film Projector Operator ID - tech [facility]/ [id number] 10:19:21 Test Item Value Reference Range Interpretation Comments COLOR (BEAKER) (test code Yellow = 470) CLARITY (BEAKER) (test Clear code = 469) SPECIFIC GRAVITY UA 1.015 1.001-1.035 (BEAKER) (test code = 468) PH UA (BEAKER) (test code 5.5 5.0-8.0 = 467) PROTEIN UA (BEAKER) (test Negative Negative code = 464) GLUCOSE UA (BEAKER) (test Negative Negative code = 365) KETONES UA (BEAKER) (test Negative Negative code = 371) BILIRUBIN UA (BEAKER) Negative Negative (test code = 462) BLOOD UA (BEAKER) (test Negative Negative code = 461) NITRITE UA (BEAKER) (test Negative Negative code = 465) LEUKOCYTE ESTERASE UA Negative Negative (BEAKER) (test code = 466) UROBILINOGEN UA (BEAKER) 0.2 0.2-1.0 (test code = 463) RBC UA (BEAKER) (test code 1 /HPF = 519) WBC UA (BEAKER) (test code < /HPF = 520) SQUAMOUS EPITHELIAL < /HPF (BEAKER) (test code = 516) HYALINE CASTS (BEAKER) 2 /LPF (test code = 514) SOURCE(BEAKER) (test code Urine, Clean Catch = 2795) Film Projector Operator ID - [auto]Film Projector Operator ID - [id number] 10:12:29 Test Item Value Reference Range Interpretation Comments THYROID STIMULATING HORMONE 4.753 uIU/mL 0.350-4.940 (BEAKER) (test code = 772) Film Projector Operator ID - KEVINVITAMIN D, [id number] 10:12:29 Test Item Value Reference Range Interpretation Comments VITAMIN D 25-OH (BEAKER) (test 50.5 ng/mL 6.6-49.9 H code = 2764) Effective 03/11/2017: Reference Range ChangeNew: 6.6-49.9 ng/mL Previous: 13.0- 47.8 ng/mLRecommendedVitamin D Target Range: 30.0-40.0 ng/mLOperator ID - KEVINIRON, TIBC, % SAT. (WITHOUT FERRITIN)2022-07-30 10:10:30 Test Item Value Reference Range Interpretation Comments IRON (BEAKER) (test code = 547) 93.0 ug/dL 40.0-160.0 TOTAL IRON BINDING CAPACITY 319 ug/dL 250-450 (BEAKER) (test code = 769) IRON % SATURATION (2) (BEAKER) 29 % 20-55 (test code = 2590) Film Projector Operator ID - [id number] 10:10:07 Test Item Value Reference Range Interpretation Comments TRANSFERRIN (BEAKER) (test code = 255 mg/dL 174-382 541) Film Projector Operator ID - Cristinaimetodd slightly ictericCYTOMEGALOVIRUS ANTIBODY, IGG 2022-07-30 10:00:36 Test Item Value Reference Range Interpretation Comments CYTOMEGALOVIRUS, IGG (BEAKER) Positive Negative, Equivocal A (test code = 3429) CMV IgG Result Interpretation: </= 0.8 Al Negative 0.9-1.0 Al Equivocal >/=1.1 Al PositiveEBV ANTIBODY, [id number] 10:00:31 Test Item Value Reference Range Interpretation Comments BOBY STALEY VIRAL CAPSID Negative Negative, Equivocal ANTIGEN IGM (BEAKER) (test code = 3418) Boby Staley Viral Capsid Antigen IgM Result Interpretation: </= 0.8 Al Negative 0.9-1.0 Al Equivocal >/= 1.1 Al PositiveEBV ANTIBODY, [id number] 09:51:33 Test Item Value Reference Range Interpretation Comments BOBY STALEY VIRAL CAPSID Positive Negative, Equivocal A ANTIGEN IGG (BEAKER) (test code = 3415) Boby Staley Viral Capsid Antigen IgG Result Interpretation: </= 0.8 Al Negative 0.9-1.0 Al Equivocal >/= 1.1 Al PositiveCOMPREHENSIVE METABOLIC [id number] 09:41:37 Test Item Value Reference Range Interpretation Comments TOTAL PROTEIN 7.6 gm/dL 6.0-8.3 (BEAKER) (test code = 770) ALBUMIN (BEAKER) 3.9 g/dL 3.5-5.0 (test code = 1145) ALKALINE 133 U/L 40-150 PHOSPHATASE (BEAKER) (test code = 346) BILIRUBIN TOTAL 2.3 mg/dL 0.2-1.2 H (BEAKER) (test code = 377) SODIUM (BEAKER) 129 meq/L 136-145 L (test code = 381) POTASSIUM (BEAKER) 4.8 meq/L 3.5-5.1 (test code = 379) CHLORIDE (BEAKER) 101 meq/L 98-107 (test code = 382) CO2 (BEAKER) (test 18 meq/L 22-29 L code = 355) BLOOD UREA 36 mg/dL 7-21 H NITROGEN (BEAKER) (test code = 354) CREATININE 1.44 mg/dL 0.57-1.25 H (BEAKER) (test code = 358) GLUCOSE RANDOM 125 mg/dL 70-105 H (BEAKER) (test code = 652) CALCIUM (BEAKER) 9.7 mg/dL 8.4-10.2 (test code = 697) AST (SGOT) 19 U/L 5-34 (BEAKER) (test code = 353) ALT (SGPT) 14 U/L 6-55 (BEAKER) (test code = 347) EGFR (BEAKER) 55 Interpretatio n of eGFR (test code = 1092) mL/min/1.[address] age Description sq m Result G1 Norm al or high >=90 G2 Mildly decreased 60-89 G3a Mildl y to moderately 45-5 9 G3b Moderately to s everely 30-44 G4 Severl y decreased 15-29 G5 Kidne y failure <15Reported eGF R is based on the CKD-EPI 2020 equation that d oes not use a race coefficientEsti mated GFR is not as accur ate as Creatinine Domi francine in predicting glom erular filtration rate . Estimated GFR is not appl icable for dialysis patien ts Film Projector Operator ID - BO GOperator ID - EMMANUELSpecimen slightly ictericBILIRUBIN, [id number] 09:15:00 Test Item Value Reference Range Interpretation Comments BILIRUBIN DIRECT (BEAKER) (test 1.1 mg/dL 0.1-0.5 H code = 706) Film Projector Operator ID - BO GGAMMA GLUTAMYL TRANSFERASE (GGT)2022-07-30 09:15:00 Test Item Value Reference Range Interpretation Comments GAMMA GLUTAMYL TRANSFERASE (BEAKER) 312 U/L 9-64 H (test code = 364) Film Projector Operator ID - BO GSpecimen slightly [id number] 09:14:59 Test Item Value Reference Range Interpretation Comments MAGNESIUM (BEAKER) (test code = 2.1 mg/dL 1.6-2.6 627) Film Projector Operator ID - BO [id number] 09:14:59 Test Item Value Reference Range Interpretation Comments PHOSPHORUS (BEAKER) (test code = 4.1 mg/dL 2.3-4.7 604) Film Projector Operator ID - BO GURIC [id number] 09:14:59 Test Item Value Reference Range Interpretation Comments URIC ACID (BEAKER) (test code = 8.7 mg/dL 2.6-7.2 H 773) Film Projector Operator ID - BO [place] slightly ictericLIPID [id number] 09:14:59 Test Item Value Reference Range Interpretation Comments TRIGLYCERIDES (BEAKER) (test code = 59 mg/dL 540) CHOLESTEROL (BEAKER) (test code = 117 mg/dL 631) HDL CHOLESTEROL (BEAKER) (test code 40 mg/dL = 976) LDL CHOLESTEROL CALCULATED (BEAKER) 65 mg/dL (test code = 633) Triglyceride Reference Range: Low Risk <150 Borderline 150-199 High Risk 200- 499 Very High Risk >=500Cholesterol Reference Range: Low Risk <200 Borderline 200-239 High Risk >240HDL Cholesterol Reference Range: Low Risk >=60 High Risk <40LDL Cholesterol Reference Range: Optimal <100 Near Optimal 100-129 Borderline 130-159 High 160-189 Very High >=190 Film Projector Operator ID - BO [place] slightly [id number] 09:08:05 Test Item Value Reference Range Interpretation Comments ETHANOL (BEAKER) (test code = 400) < mg/dL <=10 Film Projector Operator ID - BO [id number]-9-[id number] 09:06:08 Test Item Value Reference Range Interpretation Comments ALPHA-1 ANTITRYPSIN (BEAKER) 178.50 mg/dL 90.00-200.00 (test code = 502) Film Projector Operator ID - EMMANUELCBC W/PLT COUNT & AUTO [id number] 08:53:45 Test Item Value Reference Range Interpretation Comments WHITE BLOOD CELL COUNT (BEAKER) 5.8 K/ L 3.5-10.5 (test code = 775) RED BLOOD CELL COUNT (BEAKER) 4.38 M/ L 4.63-6.08 L (test code = 761) HEMOGLOBIN (BEAKER) (test code = 15.0 GM/DL 13.7-17.5 410) HEMATOCRIT (BEAKER) (test code = 44.7 % 40.1-51.0 411) MEAN CORPUSCULAR VOLUME (BEAKER) 102 fL 79-92 H (test code = 753) MEAN CORPUSCULAR HEMOGLOBIN 34.2 pg 25.7-32.2 H (BEAKER) (test code = 751) MEAN CORPUSCULAR HEMOGLOBIN CONC 33.6 GM/DL 32.3-36.5 (BEAKER) (test code = 752) RED CELL DISTRIBUTION WIDTH 14.9 % 11.6-14.4 H (BEAKER) (test code = 412) PLATELET COUNT (BEAKER) (test 113 K/CU MM 150-450 L code = 756) MEAN PLATELET VOLUME (BEAKER) 11.2 fL 9.4-12.4 (test code = 754) NUCLEATED RED BLOOD CELLS 0 /100 WBC 0-0 (BEAKER) (test code = 413) NEUTROPHILS RELATIVE PERCENT 59 % (BEAKER) (test code = 429) LYMPHOCYTES RELATIVE PERCENT 14 % (BEAKER) (test code = 430) MONOCYTES RELATIVE PERCENT 14 % (BEAKER) (test code = 431) EOSINOPHILS RELATIVE PERCENT 12 % (BEAKER) (test code = 432) BASOPHILS RELATIVE PERCENT 1 % (BEAKER) (test code = 437) NEUTROPHILS ABSOLUTE COUNT 3.39 K/ L 1.78-5.38 (BEAKER) (test code = 670) LYMPHOCYTES ABSOLUTE COUNT 0.81 K/ L 1.32-3.57 L (BEAKER) (test code = 414) MONOCYTES ABSOLUTE COUNT (BEAKER) 0.83 K/ L 0.30-0.82 H (test code = 415) EOSINOPHILS ABSOLUTE COUNT 0.69 K/ L 0.04-0.54 H (BEAKER) (test code = 416) BASOPHILS ABSOLUTE COUNT (BEAKER) 0.06 K/ L 0.01-0.08 (test code = 417) IMMATURE GRANULOCYTES-RELATIVE 0.30 % 0.00-1.00 PERCENT (BEAKER) (test code = 2801) [id number] 08:51:41 Test Item Value Reference Range Interpretation Comments PARTIAL THROMBOPLASTIN TIME 31.2 seconds 22.5-36.0 (BEAKER) (test code = 760) [id number] 08:51:18 Test Item Value Reference Range Interpretation Comments FIBRINOGEN LEVEL (BEAKER) (test 550 mg/dl 225-434 H code = 658) PROTHROMBIN [id number] 08:51:07 Test Item Value Reference Range Interpretation Comments PROTIME (BEAKER) (test code = 16.5 seconds 11.9-14.2 H 759) INR (BEAKER) (test code = 370) 1.42 <=5.90 RECOMMENDED COUMADIN/WARFARIN INR THERAPY RANGESSTANDARD DOSE: 2.0 - 3.0 Includes: PROPHYLAXIS for venous thrombosis, systemic embolization; TREATMENT for venous thrombosis and/or pulmonary embolus.HIGH RISK: Target INR is 2.5-3.5 for patients with mechanical heart valves.CALCIUM, [id number] 08:36:24 Test Item Value Reference Range Interpretation Comments CALCIUM IONIZED (BEAKER) (test 1.11 mmol/L 1.12-1.27 L code = 698) PH, BLOOD (BEAKER) (test code = 7.38 1810) PROTHROMBIN [id number] 17:36:13 Test Item Value Reference Range Interpretation Comments PROTIME (BEAKER) 16.8 seconds 11.9-14.2 H (test code = 759) INR (BEAKER) (test 1.39 See_Comment [Automat ed message] code = 370) The system [employer] generated this result transmitted ref erence range: <=5.90. The reference range was not used to int erpret this result as normal/abnormal . RECOMMENDED COUMADIN/WARFARIN INR THERAPY RANGESSTANDARD DOSE: 2.0 - 3.0 Includes: PROPHYLAXIS for venous thrombosis, systemic embolization; TREATMENT for venous thrombosis and/or pulmonary embolus.HIGH RISK: Target INR is 2.5-3.5 for patients with mechanical heart valves.ALPHA FETOPROTEIN (AFP), TUMOR MARKER 2022-05-29 17:31:30 Test Item Value Reference Range Interpretation Comments ALPHA-FETOPROTEIN (BEAKER) (test code < ng/mL <10.0 = 1094) Film Projector Operator ID - BSBASIC METABOLIC [id number] 17:10:09 Test Item Value Reference Range Interpretation Comments SODIUM (BEAKER) 134 meq/L 136-145 L (test code = 381) POTASSIUM 4.9 meq/L 3.5-5.1 (BEAKER) (test code = 379) CHLORIDE (BEAKER) 102 meq/L 98-107 (test code = 382) CO2 (BEAKER) 21 meq/L 22-29 L (test code = 355) BLOOD UREA 26 mg/dL 7-21 H NITROGEN (BEAKER) (test code = 354) CREATININE 1.23 mg/dL 0.57-1.25 (BEAKER) (test code = 358) GLUCOSE RANDOM 155 mg/dL 70-105 H (BEAKER) (test code = 652) CALCIUM (BEAKER) 10.1 mg/dL 8.4-10.2 (test code = 697) EGFR (BEAKER) 66 Interpretatio n of eGFR (test code = mL/min/1.73 values Stage De scription 1092) sq m Result G1 Dalia l or high >=90 G2 Mildly decreased 60-89 G3a Mildl y to moderately 45-5 9 G3b Moderately to s everely 30-44 G4 Severl y decreased 15-29 G5 Kidney failure <15Reported eGF R is based on the CKD-EPI 2020 equation that d oes not use a race coefficientEsti mated GFR is not as accur ate as Creatinine Domi francine in predicting glom erular filtration rate . Estimated GFR is not appl icable for dialysis patien ts Film Projector Operator ID - BSSpecimen slightly ictericHEPATIC FUNCTION [id number] 17:10:09 Test Item Value Reference Range Interpretation Comments TOTAL PROTEIN (BEAKER) (test code = 8.0 gm/dL 6.0-8.3 770) ALBUMIN (BEAKER) (test code = 1145) 4.0 g/dL 3.5-5.0 BILIRUBIN TOTAL (BEAKER) (test code 3.1 mg/dL 0.2-1.2 H = 377) BILIRUBIN DIRECT (BEAKER) (test 1.6 mg/dL 0.1-0.5 H code = 706) ALKALINE PHOSPHATASE (BEAKER) (test 173 U/L 40-150 H code = 346) AST (SGOT) (BEAKER) (test code = 19 U/L 5-34 353) ALT (SGPT) (BEAKER) (test code = 17 U/L 6-55 347) Film Projector Operator ID - BSSpecimen slightly [id number] 17:09:31 Test Item Value Reference Range Interpretation Comments MAGNESIUM (BEAKER) (test code = 1.7 mg/dL 1.6-2.6 627) Film Projector Operator ID - BSCBC W/PLT COUNT & AUTO [id number] 16:44:42 Test Item Value Reference Range Interpretation Comments WHITE BLOOD CELL COUNT (BEAKER) 4.8 K/ L 3.5-10.5 (test code = 775) RED BLOOD CELL COUNT (BEAKER) 4.72 M/ L 4.63-6.08 (test code = 761) HEMOGLOBIN (BEAKER) (test code = 15.9 GM/DL 13.7-17.5 410) HEMATOCRIT (BEAKER) (test code = 48.1 % 40.1-51.0 411) MEAN CORPUSCULAR VOLUME (BEAKER) 102 fL 79-92 H (test code = 753) MEAN CORPUSCULAR HEMOGLOBIN 33.7 pg 25.7-32.2 H (BEAKER) (test code = 751) MEAN CORPUSCULAR HEMOGLOBIN CONC 33.1 GM/DL 32.3-36.5 (BEAKER) (test code = 752) RED CELL DISTRIBUTION WIDTH 15.3 % 11.6-14.4 H (BEAKER) (test code = 412) PLATELET COUNT (BEAKER) (test 112 K/CU MM 150-450 L code = 756) MEAN PLATELET VOLUME (BEAKER) 11.4 fL 9.4-12.4 (test code = 754) NUCLEATED RED BLOOD CELLS 0 /100 WBC 0-0 (BEAKER) (test code = 413) NEUTROPHILS RELATIVE PERCENT 63 % (BEAKER) (test code = 429) LYMPHOCYTES RELATIVE PERCENT 17 % (BEAKER) (test code = 430) MONOCYTES RELATIVE PERCENT 13 % (BEAKER) (test code = 431) EOSINOPHILS RELATIVE PERCENT 6 % (BEAKER) (test code = 432) BASOPHILS RELATIVE PERCENT 1 % (BEAKER) (test code = 437) NEUTROPHILS ABSOLUTE COUNT 3.01 K/ L 1.78-5.38 (BEAKER) (test code = 670) LYMPHOCYTES ABSOLUTE COUNT 0.81 K/ L 1.32-3.57 L (BEAKER) (test code = 414) MONOCYTES ABSOLUTE COUNT (BEAKER) 0.61 K/ L 0.30-0.82 (test code = 415) EOSINOPHILS ABSOLUTE COUNT 0.28 K/ L 0.04-0.54 (BEAKER) (test code = 416) BASOPHILS ABSOLUTE COUNT (BEAKER) 0.05 K/ L 0.01-0.08 (test code = 417) IMMATURE GRANULOCYTES-RELATIVE 0.40 % 0.00-1.00 PERCENT (BEAKER) (test code = 2801) ALPHA FETOPROTEIN (AFP), TUMOR [id number] 18:46:00 Test Item Value Reference Range Interpretation Comments ALPHA-FETOPROTEIN (BEAKER) (test code < ng/mL <10.0 = 1094) BASIC METABOLIC [id number] 17:18:00 Test Item Value Reference Range Interpretation [...] 697) EGFR (BEAKER) (test 85 mL/min/1.73 ESTIMA ROMEL GFR IS code = 1092) sq m NOT ACCURATE CREATININE CLEARANCE IN PREDICTING GLOMERULAR FILTRATION RATE . ESTIMATED GFR I S NOT APPLICABLE FOR DIALYSIS PATIEN TS. Specimen slightly ictericHEPATIC FUNCTION [id number] 17:18:00 Test Item Value Reference Range Interpretation [...] 11 U/L 6-55 347) Specimen slightly ictericPROTHROMBIN [id number] 16:56:00 Test Item Value Reference Range Interpretation [...] for patients wiht mechanical heart valves.URINALYSIS W/ [id number] 16:47:00 Test Item Value Reference Range Interpretation [...] = 2795) CBC W/PLT COUNT & AUTO [id number] 16:41:00 Test Item Value Reference Range Interpretation [...] (BEAKER) Nonreactive Nonreactive (test code = 367) [id number] 17:21:00 Test Item Value Reference Range Interpretation Comments FERRITIN (BEAKER) (test code = 361) 119 ng/mL 5-275 CT, ABDOMEN, [id number] 16:56:00Referring: Dr. Evin Carter Triple phase liver [...] renal cysts.4. Small ascites. Signed: Lizz Arce Verified Date/Time: 11/22/2018 16:56:24 Reading Location: [address] Radiology Reading Room HEPATITIS B SURFACE [id number] 16:50:00 Test Item Value Reference Range Interpretation Comments HEPATITIS B SURFACE ANTIBODY < mIU/mL <8.0 (BEAKER) (test code = 647) HEPATITIS B SURFACE [id number] 16:49:00 Test Item Value Reference Range Interpretation Comments HEPATITIS B SURFACE ANTIGEN (2) Nonreactive Nonreactive (BEAKER) (test code = 2585) HEPATITIS B CORE ANTIBODY, [id number] 16:49:00 Test Item Value Reference Range Interpretation Comments HEPATITIS B CORE TOTAL ANTIBODY Nonreactive Nonreactive (BEAKER) (test code = 497) HEPATITIS A ANTIBODY, [id number] 16:49:00 Test Item Value Reference Range Interpretation Comments HEPATITIS A IGG ANTIBODY (BEAKER) Nonreactive Nonreactive (test code = 2797) B-TYPE NATRIURETIC FACTOR (BNP)2018-11-22 16:36:00 Test Item Value Reference Range Interpretation Comments B-TYPE NATRIURETIC PEPTIDE (BEAKER) 332 pg/mL 0-100 H (test code = 700) RAD, CHEST, 2 [id number] 16:36:00Referring: Dr. Evin Carter Reason for Exam:->right [...] suggestive of vascular congestion. Signed: Lizz Arce Verified Date/Time: 11/22/2018 16:36:54 Reading Location: [address] Radiology Reading Room COMPREHENSIVE METABOLIC [id number] 16:30:00 Test Item Value Reference Range Interpretation [...] APPLICABLE FOR DIALYSIS PATIEN TS. Specimen slightly ictericBILIRUBIN, [id number] 16:30:00 Test Item Value Reference Range Interpretation Comments BILIRUBIN DIRECT (BEAKER) (test 1.6 mg/dL 0.1-0.5 H code = 706) IRON, TIBC, % SAT. (WITHOUT FERRITIN)2018-11-22 16:28:00 Test Item Value Reference Range Interpretation Comments IRON (BEAKER) (test code = 547) 82.0 ug/dL 40.0-160.0 TOTAL IRON BINDING CAPACITY 345 ug/dL 250-450 (BEAKER) (test code = 769) IRON % SATURATION (2) (BEAKER) 24 % 20-55 (test code = 2590) [id number] 16:28:00 Test Item Value Reference Range Interpretation Comments ALPHA-1 ANTITRYPSIN (BEAKER) 192.90 mg/dL 90.00-200.00 (test code = 502) LACTIC ACID, [id number] 16:25:00 Test Item Value Reference Range Interpretation Comments LACTATE BLOOD VENOUS 1.4 mmol/L 0.5-2.2 Specime n slightly (2) (BEAKER) (test hemolyzed code = 2872) CBC W/PLT COUNT & AUTO [id number] 16:12:00 Test Item Value Reference Range Interpretation [...] 0-1 PERCENT (BEAKER) (test code = 2801) [id number] 15:41:00 Test Item Value Reference Range Interpretation Comments POC-CREATININE 0.7 mg/dL 0.6-1.3 TESTED AT [facility] ([facility]) (test [place] code = 1859) [address] POC-EGFR (AKER) 115 mL/min/1.73M2 (test code = 1860)
[2023-04-26] MEDS ORDERED: IBUPROFEN 400 MG TAB ONE (02:18)
[2023-04-26] MEDS ORDERED: IBUPROFEN 200 MG TAB PO ONE (02:18)
[2023-04-26 03:07] LABS: SARS-COV-2 RT PCR NEGATIVE (NEGATIVE)
[2023-04-26 03:57] LABS: Absolute Lymphocytes (CBC) 0.2 K/uL (0.7-4.9); Hematocrit 44.3 % (39.6-49.0); Lymphocytes % 2.3 % (15.3-44.8); MCV 102.5 fL (80-100); MPV 9.2 fL (7.6-11.3); Platelets 104 thou/uL (152-406); RBC Red Blood Cell Count 4.32 M/uL (4.33-5.43)
[2023-04-26 04:02] LABS: Protime INR 1.48
[2023-04-26 04:18] LABS: Albumin 3.3 g/dL (3.4-5.0); Bilirubin Total 2.8 mg/dL (0.2-1.0); Potassium 4.2 mEq/L (3.5-5.1); Protein, Total 7.7 g/dL (6.4-8.2)
[2023-04-26 05:37] LABS: Blood Morphology Comment NOT SEEN (NOT SEEN); Platelet Estimate DECR; Platelets, Giant OCC; White Blood Cell Scan OK (OK)
[2023-04-26] MEDS ORDERED: CEFTRIAXONE 1000 MG/VIAL ONE (05:53)
[2023-04-26] MEDS ORDERED: SMZ./TMP. 800/160 MG TABLET ONE (06:29)
[2023-04-26] MEDS ORDERED: ONDANSETRON 4 MG/2 ML VIAL ONE (06:29)
[2023-04-26] MEDS ORDERED: AZITHROMYCIN 500 MG INJ IVPB ONE (06:29)
[2023-04-26] MEDS ORDERED: NA CHLORIDE 0.9% 1,000 ML ONE (06:30)
[2023-04-26] MEDS ORDERED: NA CHLORIDE 0.9% 250 ML ONE ×2 (06:30→09:09)
--- NOTE | 2023-04-26 07:17 | ER ---
Nurse's Notes [facility] Name: Jon Doherty Age: 63 yrs Sex: Male : 1960 Arrival Date: 04/26/2023 Time: 01:23 Bed 18 Private MD: Diagnosis: Acute upper respiratory infection, unspecified;Fever, unspecified;Unspecified cirrhosis of liver;Cellulitis of abdominal wall-improving;Obesity, unspecified;Type 2 diabetes mellitus with hyperglycemia;Encephalopathy, unspecified Presentation: 04/26 01:48 Chief complaint: Spouse and/or significant other states: intermittent SOB with pf1 cough,onset with fever of highest temp 100.8F and chills. Coronavirus screen: Vaccine status: Patient reports being unvaccinated. Client denies travel out of the [place] in the last 14 days. Client presents with at least one sign or symptom that may indicate coronavirus-19. Ebola Screen: Patient negative for fever greater than or equal to 101.5 degrees Fahrenheit, and additional compatible Ebola Virus Disease symptoms. Initial Sepsis Screen: Does the patient meet any 2 criteria? HR > 90 bpm. No. Patient's initial sepsis screen is negative. Does the patient have a suspected source of infection? No. Patient's initial sepsis screen is negative. Risk Assessment: Do you want to hurt yourself or someone else? Patient reports no desire to harm self or others. 01:48 Method Of Arrival: Wheelchair pf1 01:48 Acuity: CARLIN 3 pf1 01:50 Onset of symptoms was April 26, 2023. [facility] Triage Assessment: 02:42 Respiratory: the patient has mild shortness of breath. [facility] Historical: - Allergies: 01:50 No Known Allergies; pf1 - PMHx: 01:50 cirrhosis of liver; diabetes mellitus; pf1 - PSHx: 01:50 left knee surgery; Tonsillectomy; pf1 - Immunization history:: Adult Immunizations not up to date, Client reports having NOT received the Covid vaccine. Last tetanus immunization: > 10 years ago Flu vaccine is not up to date. - Social history:: Smoking status: Patient denies any tobacco usage or history of. Patient/guardian denies using alcohol, street drugs. Screenin:32 [facility] ED Fall Risk Assessment (Adult) History of falling in the last 3 months, ha1 including since admission No falls in past 3 months (0 pts) Confusion or Disorientation No (0 pts) Intoxicated or Sedated No (0 pts) Impaired Gait Yes (1 pt) Mobility Assist Device Used No (0 pt) Altered Elimination No (0 pt) Score/Fall Risk Level 0 - 2 = Low Risk Oriented to surroundings, Maintained a safe environment, Educated pt \T\ family on fall prevention, incl call for assistance when getting out of bed, Hourly rounding (assess needs \T\ fall precautionary measures) done. Abuse screen: Denies threats or abuse. Denies injuries from another. Nutritional screening: No deficits noted. Tuberculosis screening: No symptoms or risk factors identified. Assessment: 01:32 General: Appears uncomfortable, Behavior is calm, cooperative. Pain: Complains of pain ha1 in GENERALIZED BODY ACHE Pain does not radiate. Pain at worst was 7 out of 10 on a pain scale. Quality of pain is described as aching. Neuro: Level of Consciousness is awake, alert, obeys commands, Oriented to person, place, time, situation. Cardiovascular: Capillary refill < 3 seconds Patient's skin is warm and dry. Respiratory: Reports shortness of breath WHEN COUGHING cough that is non-productive, RUNNY NOSE Airway is patent Respiratory effort is even, unlabored, Respiratory pattern is regular, symmetrical, Breath sounds are clear bilaterally. GI: No signs and/or symptoms were reported involving the gastrointestinal system. Abdomen is round non-distended. Derm: Skin is pink, warm \T\ dry. Musculoskeletal: Range of motion: intact in all extremities. 02:30 Reassessment: Patient and/or family updated on plan of care and expected duration. Pain ha1 level reassessed. Patient is alert, oriented x 3, equal unlabored respirations, skin warm/dry/pink. 03:30 Reassessment: Patient and/or family updated on plan of care and expected duration. Pain ha1 level reassessed. Patient is alert, oriented x 3, equal unlabored respirations, skin warm/dry/pink. 04:28 Reassessment: Patient and/or family updated on plan of care and expected duration. Pain ha1 level reassessed. Patient is alert, oriented x 3, equal unlabored respirations, skin warm/dry/pink. 05:30 Reassessment: Patient and/or family updated on plan of care and expected duration. Pain ha1 level reassessed. Patient is alert, oriented x 3, equal unlabored respirations, skin warm/dry/pink. 06:30 Reassessment: Patient and/or family updated on plan of care and expected duration. Pain ha1 level reassessed. Patient is alert, oriented x 3, equal unlabored respirations, skin warm/dry/pink. Patient denies pain at this time. 10:41 Cardiovascular: Rhythm is sinus rhythm. ko1 Vital Signs: 01:48 BP 129 / 69; Pulse 95; Resp 18; Temp 99.3; Pulse Ox 97% on R/A; Pain 0/10; pf1 02:30 BP 140 / 76; Pulse 96; Resp 17 S; Pulse Ox 95% on R/A; ha1 03:30 BP 95 / 56; Pulse 93; Resp 18 S; Pulse Ox 95% on R/A; ha1 04:28 BP 113 / 70; Pulse 91; Resp 17 S; Temp 98.7; Pulse Ox 94% on R/A; ha1 05:30 BP 115 / 74; Pulse 92; Resp 18 S; Pulse Ox 100% on R/A; ha1 06:30 BP 102 / 72; Pulse 79; Resp 16 S; Pulse Ox 98% on R/A; ha1 10:41 BP 114 / 76; Pulse 90; Resp 16; Pulse Ox 99% ; ko1 01:48 Pain Scale: Adult pf1 ED Course: 01:26 Patient arrived in ED. [email or web address] 01:32 Arm band placed on right wrist. ha1 01:32 Patient has correct armband on for positive identification. Placed in gown. Bed in low ha1 position. Call light in reach. Side rails up X 1. Adult w/ patient. 01:37 Lisa Gomez FNP-C is PHCP. kb 01:37 Brayan Washington MD is Attending Physician. kb 01:50 Triage completed. pf1 01:59 Chest Single View XRAY In Process Unspecified. EDMS 02:09 Sury Marie, SHREYA is Primary Nurse. ha1 03:20 Inserted saline lock: 20 gauge in left antecubital area, using aseptic technique. Blood ha1 collected. 03:37 Blood Culture Adult (2) Sent. ha1 03:37 CBC with Diff Sent. ha1 03:37 CMP Sent. ha1 03:37 Lactate w/ 2H reflex if indic. Sent. ha1 03:37 Protime (+inr) Sent. ha1 03:37 Ptt, Activated Sent. ha1 06:58 CT Chest Abdomen Pelvis W/O Contrast In Process Unspecified. EDMS 07:06 Attending Physician role handed off by Brayan Washington MD shyanne 07:06 Sridhar Pichardo MD is Attending Physician. shyanne 07:15 Fredi Ambrose MD is Hospitalizing Provider. shyanne 07:22 Basic Metabolic Panel Sent. ko1 07:22 LFT's Sent. ko1 07:22 Magnesium Sent. ko1 07:22 NT PRO-BNP Sent. ko1 07:22 Troponin HS Sent. ko1 07:24 Provided Education on: ADMIT. db 07:24 No provider procedures requiring assistance completed. Patient admitted, IV remains in db place. 07:44 AMMONIA Sent. ko1 08:29 Skyla Weinstein MD is Referral Physician. shyanne Administered Medications: 02:09 Drug: Ibuprofen PO 600 mg PO once Route: PO; ha1 04:00 Follow up: Response: No adverse reaction; Temperature is decreased ha1 05:35 Drug: Rocephin - Rocephin (cefTRIAXone) IVPB 1 grams IVPB once over 30 mins; (mix in 50 ha1 mL NS) Route: IVPB; Infused Over: 30 mins; Site: left antecubital; 06:00 Follow up: Response: No adverse reaction; IV Status: Completed infusion ha1 06:30 Drug: Ondansetron IVP 4 mg IVP once; over 2 minutes Route: IVP; Site: left antecubital; ha1 07:03 Follow up: Response: No adverse reaction ha1 06:35 Drug: Trimethoprim-Sulfamethoxazole PO (160 mg-800 mg (DS) 1 tablet PO once Route: PO; ha1 07:03 Follow up: Response: No adverse reaction ha1 06:38 Drug: NS 0.9% IV 1000 ml IV at 125 ml/hr continuous Route: IV; Rate: 125 ml/hr; Site: ha1 left antecubital; 07:02 Follow up: Response: No adverse reaction; IV Status: Infusion continued ha1 06:39 Drug: Zithromax IVPB 500 mg IVPB once over 1 hrs; mix in 250 mL NS Route: IVPB; Infused ha1 Over: 1 hrs; Site: left antecubital; 07:03 Follow up: Response: No adverse reaction; IV Status: Infusion continued ha1 08:34 Not Given (Duplicate Order): amoxicillin-[id number] mg PO once shyanne 09:28 Drug: Lactulose PO 30 grams 45 ml PO once Volume: 45 ml; Route: PO; ko1 09:28 Drug: Doxycycline PO 200 mg PO once Route: PO; ko1 09:29 Drug: vancoMYCIN IVPB 1 grams IVPB once over 2 hrs Route: IVPB; Infused Over: 2 hrs; ko1 Site: left antecubital; Medication: 02:43 VIS not applicable for this client. ha1 Outcome: 07:16 Decision to Hospitalize by Provider. shyanne 07:24 Admitted to ER Hold. Please see [facility] for further documentation. db 07:24 Instructed on the need for admit, 08:32 Discharge ordered by MD. shyanne 10:41 Discharged to home ambulatory, ko1 10:41 Condition: stable 10:41 Discharge instructions given to patient, family, Instructed on discharge instructions, follow up and referral plans. medication usage, Demonstrated understanding of instructions, follow-up care, medications, Prescriptions given X 4, 10:42 Patient left the ED. ko1 Signatures: Dispatcher [employer] EDMS Lisa Gomez, UI APPLICATION DEVELOPER-Germain UI APPLICATION DEVELOPER-Sridhar Miguel MD MD cha Jeffries, Jennifer [email or web address] Sury Marie RN RN ha1 Wendy Flores RN RN ko1 Megan Santiago RN RN Mei Ba RN RN pf1 Corrections: (The following items were deleted from the chart) 01:51 01:50 PSHx: left knee surgery (diabetes mellitus ); pf1 pf1 06:05 04:28 BP 113 / 70; Pulse 91bpm; Resp 17bpm; Spontaneous; Pulse Ox 94% RA; ha1 ha1
--- NOTE | 2023-04-26 07:17 | EDPHYS ---
Physician Documentation [facility] Name: Jon Doherty Age: 63 yrs Sex: Male : 1960 Arrival Date: 04/26/2023 Time: 01:23 Bed 18 Private MD: ED Physician Sridhar Pichardo HPI: 04/26 01:51 This 63 yrs old Male presents to ER via Wheelchair with complaints of Cough, kb Shortness Of Breath. 01:51 The patient has not recently seen a physician. Patient is a 63-year-old male who kb presents for fever, chills and cough that started 3 days ago. Patient denies shortness of breath or any pain including chest pain.. Historical: - Allergies: 01:50 No Known Allergies; pf1 - PMHx: 01:50 cirrhosis of liver; diabetes mellitus; pf1 - PSHx: 01:50 left knee surgery; Tonsillectomy; pf1 - Immunization history:: Adult Immunizations not up to date, Client reports having NOT received the Covid vaccine. Last tetanus immunization: > 10 years ago Flu vaccine is not up to date. - Social history:: Smoking status: Patient denies any tobacco usage or history of. Patient/guardian denies using alcohol, street drugs. ROS: 01:50 Abdomen/GI: Negative for abdominal pain, nausea, vomiting, diarrhea, and constipation, kb 01:50 Constitutional: Positive for chills, fever, malaise, 01:50 Respiratory: Positive for cough, Negative for shortness of breath, 01:50 All other systems are negative, Exam: 01:50 Constitutional: This is a well developed, well nourished patient who is awake, alert, kb and in no acute distress. Head/Face: Normocephalic, atraumatic. ENT: Moist Mucous membranes Cardiovascular: Regular rate Respiratory: Respirations even and unlabored. No increased work of breathing. Talking in full sentences Skin: Warm, dry with normal turgor. Normal color. MS/ Extremity: Pulses equal, no cyanosis. Neurovascular intact. Full, normal range of motion. Neuro: Awake and alert, GCS 15, oriented to person, place, time, and situation. Moves all extremities. Normal gait. 07:03 ECG was reviewed by the Attending Physician. EKG time 0409 there is normal sinus rhythm sp4 at rate of 91 08:24 Abdomen/GI: Inspection: distension, Bowel sounds: normal, Palpation: abdomen is soft shyanne and non-tender, in the mild abdominal wall cellulitis, pt states improving, Liver: no appreciated palpable abnormalities, Hernia: not appreciated, Vital Signs: 01:48 BP 129 / 69; Pulse 95; Resp 18; Temp 99.3; Pulse Ox 97% on R/A; Pain 0/10; pf1 02:30 BP 140 / 76; Pulse 96; Resp 17 S; Pulse Ox 95% on R/A; ha1 03:30 BP 95 / 56; Pulse 93; Resp 18 S; Pulse Ox 95% on R/A; ha1 04:28 BP 113 / 70; Pulse 91; Resp 17 S; Temp 98.7; Pulse Ox 94% on R/A; ha1 05:30 BP 115 / 74; Pulse 92; Resp 18 S; Pulse Ox 100% on R/A; ha1 06:30 BP 102 / 72; Pulse 79; Resp 16 S; Pulse Ox 98% on R/A; ha1 10:41 BP 114 / 76; Pulse 90; Resp 16; Pulse Ox 99% ; ko1 01:48 Pain Scale: Adult pf1 MDM: 01:37 Patient medically screened. kb 01:51 Differential Diagnosis: Bronchitis Influenza Upper Respiratory Infection Pneumonia kb Other COVID. Data reviewed: vital signs, nurses notes. Historians other than the Patient: Daughter/Son: Son. 02:55 ED course: X-ray report shows pneumonia to right lung base. Serum labs added.. kb 03:01 Transition of care: After a detail discussion of the patient's case, care is kb transferred to Brayan Washington MD. 05:46 ED course: Chest X ray - CLINICAL HISTORY:63 years Male, COUGH Comparison: Chest sp4 radiograph dated 11/07/2022 IMPRESSION: Right lung base opacity concerning for pneumonia. No pleural effusion. No pneumothorax. Cardiomediastinal silhouette is within normal limits. Mild vascular congestion. No acute osseous abnormality. . 07:10 Transition of care: After a detail discussion of the patient's case, care is sp4 transferred to Sridhar Pichardo MD. 04/26 01:43 Order name: COVID-19/FLU A+B; Complete Time: 05:45 kb 04/26 02:55 Order name: Blood Culture Adult (2) kb 04/26 02:55 Order name: CBC with Diff; Complete Time: 05:45 kb 04/26 02:55 Order name: CMP; Complete Time: 05:45 kb 04/26 02:55 Order name: Lactate w/ 2H reflex if indic.; Complete Time: 05:45 kb 04/26 02:55 Order name: Protime (+inr); Complete Time: 05:45 kb 04/26 02:55 Order name: Ptt, Activated; Complete Time: 05:45 kb 04/26 05:38 Order name: CBC Smear Scan; Complete Time: 05:45 EDMS 04/26 07:08 Order name: Basic Metabolic Panel; Complete Time: 08:15 shyanne 04/26 07:08 Order name: LFT's; Complete Time: 08:15 shyanne 04/26 07:08 Order name: Magnesium; Complete Time: 08:15 shyanne 04/26 07:08 Order name: NT PRO-BNP; Complete Time: 08:15 shyanne 04/26 07:08 Order name: Troponin HS; Complete Time: 08:15 shyanne 04/26 07:13 Order name: AMMONIA; Complete Time: 08:11 shyanne 04/26 01:43 Order name: Chest Single View XRAY kb 04/26 06:05 Order name: CT Chest Abdomen Pelvis W/O Contrast; Complete Time: 08:11 sp4 04/26 02:55 Order name: EKG; Complete Time: 02:56 kb 04/26 02:55 Order name: Accucheck; Complete Time: 04:27 kb 04/26 02:55 Order name: Cardiac monitoring; Complete Time: 03:37 kb 04/26 02:55 Order name: EKG - Nurse/Tech; Complete Time: 04:18 kb 04/26 02:55 Order name: IV Saline Lock - Large Bore; Complete Time: 03:37 kb 04/26 02:55 Order name: Labs collected and sent; Complete Time: 03:37 kb 04/26 02:55 Order name: O2 Per Protocol; Complete Time: 03:37 kb 04/26 02:55 Order name: O2 Sat Monitoring; Complete Time: 03:37 kb 04/26 02:55 Order name: Vital Signs; Complete Time: 03:37 kb 04/26 07:08 Order name: IV Saline Lock; Complete Time: 07:13 shyanne 04/26 07:14 Order name: IV - Large Bore; Complete Time: : [facility] EC:03 Rate is 91 beats/min. Rhythm is regular, Normal Sinus Rhythm. QRS [place] is Normal. [place] sp4 interval is normal. QRS interval is normal. QT interval is normal. No Q waves. T waves are Normal. No ST changes noted. Clinical impression: Normal ECG. Interpreted by me. Reviewed by me. Administered Medications: 02:09 Drug: Ibuprofen PO 600 mg PO once Route: PO; ha1 04:00 Follow up: Response: No adverse reaction; Temperature is decreased ha1 05:35 Drug: Rocephin - Rocephin (cefTRIAXone) IVPB 1 grams IVPB once over 30 mins; (mix in 50 ha1 mL NS) Route: IVPB; Infused Over: 30 mins; Site: left antecubital; 06:00 Follow up: Response: No adverse reaction; IV Status: Completed infusion ha1 06:30 Drug: Ondansetron IVP 4 mg IVP once; over 2 minutes Route: IVP; Site: left antecubital; ha1 07:03 Follow up: Response: No adverse reaction ha1 06:35 Drug: Trimethoprim-Sulfamethoxazole PO (160 mg-800 mg (DS) 1 tablet PO once Route: PO; ha1 07:03 Follow up: Response: No adverse reaction ha1 06:38 Drug: NS 0.9% IV 1000 ml IV at 125 ml/hr continuous Route: IV; Rate: 125 ml/hr; Site: ha left antecubital; 07:02 Follow up: Response: No adverse reaction; IV Status: Infusion continued ha1 06:39 Drug: Zithromax IVPB 500 mg IVPB once over 1 hrs; mix in 250 mL NS Route: IVPB; Infused ha1 Over: 1 hrs; Site: left antecubital; 07:03 Follow up: Response: No adverse reaction; IV Status: Infusion continued ha1 08:34 Not Given (Duplicate Order): amoxicillin-[id number] mg PO once [facility] 09:28 Drug: Lactulose PO 30 grams 45 ml PO once Volume: 45 ml; Route: PO; ko1 09:28 Drug: Doxycycline PO 200 mg PO once Route: PO; ko1 09:29 Drug: vancoMYCIN IVPB 1 grams IVPB once over 2 hrs Route: IVPB; Infused Over: 2 hrs; ko1 Site: left antecubital; Disposition: 07:09 I agree with the assessment and plan of care. I reviewed the patient's care provided by sp4 Advanced Practice Provider \T\ agree w/ the diagnosis \T\ care plan. I personally saw the pt \T\ performed a substantive portion of the visit, incldng all aspects of the (History/Exam/Medical Decision Making). Disposition Summary: 04/26/23 08:32 Discharge Ordered Notes: Location: Home(04/26/23 08:32) shyanne Problem: new(04/26/23 08:32) shyanne Symptoms: have improved(04/26/23 08:32) shyanne Condition: Stable(04/26/23 08:32) shyanne Diagnosis - Acute upper respiratory infection, unspecified shyanne - Fever, unspecified shyanne - Unspecified cirrhosis of liver shyanne - Cellulitis of abdominal wall - improving shyanne - Obesity, unspecified(04/26/23 08:32) shyanne - Type 2 diabetes mellitus with hyperglycemia shyanne - Encephalopathy, unspecified shyanne Followup: shyanne - With: Private Physician - When: 1 - 2 days - Reason: Recheck today's complaints, Continuance of care, Re-evaluation by your physician Followup: shyanne - With: Skyla Weinstein MD - When: 1 - 2 days - Reason: Recheck today's complaints, Re-evaluation by your physician Discharge Instructions: - Discharge Summary Sheet shyanne - Cellulitis, Adult shyanne - Cirrhosis shyanne - Fever, Adult shyanne - Hyperglycemia shyanne - Obesity, Adult shyanne - Upper Respiratory Infection, Adult shyanne - Cool Mist Vaporizer shyanne - Cellulitis, Adult, [id number] shyanne - Upper Respiratory Infection, Adult, [id number]-[id number] shyanne - Diabetes Mellitus and Nutrition, Adult shyanne - Cough, Adult shyanne Forms: - Medication Reconciliation Form shyanne - Thank You Letter [facility] - Antibiotic Education shyanne - Prescription Opioid Use shyanne - Patient Portal Instructions [facility] - Leadership Thank You Letter [facility] Prescriptions: - albuterol sulfate 90 mcg/actuation Inhalation HFA Aerosol Inhaler - inhale 2 inhalation INHALATION route every 4 to 6 hours as needed for shortness shyanne of breath or wheezing; 1 unit; Refills: 0, Product Selection Permitted - Doxycycline Hyclate 100 mg Oral Tablet - take 1 tablet ORAL route every 12 hours; 20 tablet; Refills: 0, Product shyanne Selection Permitted - Lactulose 10 gram/15 mL Oral Solution - take 30 milliliters ORAL route once daily; 300 milliliter; Refills: 0, Product shyanne Selection Permitted - Bactrim DS 800-160 mg Oral Tablet - take 1 tablet ORAL route every 12 hours for 10 days; 20 tablet; Refills: 0, shyanne Product Selection Permitted Signatures: Dispatcher [employer] EDMS Lisa Gomez, BEAM SEALER-C BEAM SEALER-Ckb Sridhar Pichardo MD MD cha Attema, Lee, FNP-C BEAM SEALER-ClaSury Mars, RN RN ha1 Wendy Flores, RN RN ko1 Mei Ba, SHREYA RN pf1 Brayan Washington MD MD sp4 Corrections: (The following items were deleted from the chart) 01:51 01:50 PSHx: left knee surgery (diabetes mellitus ); pf1 pf1 06:16 05:59 Chest Abdomen Pelvis W Con+CT.RAD.BRZ ordered. EDHI EDMS 08: 07:16 Inpatient Admission shyanne shyanne 08: 07:16 Omitogun, Fredi shyanne shyanne : 07:16 Telemetry/MedSurg (Inpatient) shyanne shyanne 08: 07:16 Fair shyanne shyanne 08: 07:16 new shyanne shyanne 08: 07:16 have improved shyanne shyanne 08: 07:16 Standard shyanne shyanne 08: 07:16 shyanne shyanne 08: 07:16 Pneumonia due to other specified bacteria shyanne shyanne 08: 07:16 Hypoxemia shyanne shyanne 08:29 07:16 Obesity, unspecified shyanne shyanne 08: 07:16 Other cirrhosis of liver shyanne shyanne
--- NOTE | 2023-04-26 08:08 | RAD REPORT ---
EXAM DESCRIPTION: CT - Chest Abd Pelvis Wo Con - 04/26/2023 6:57 am CLINICAL HISTORY: CHEST PAIN COMPARISON: Chest Abd Pelvis Wo Con dated 09/14/2022; Thorax W/ Con dated 03/18/2018; Chest For Pe An braulio dated 10/16/2017; Chest Pa And Lat (2 Views) dated 11/07/2022; Chest Single View dated 04/26/2023 TECHNIQUE: Thin axial CT images of the chest, abdomen, and pelvis, performed without IV contrast. Mu ltiplanar reformats were generated and reviewed. All CT scans are performed using dose optimization technique as appropriate and may include automated exposure control or mA/KV adjustment according to patient size. FINDINGS: The lungs again show mild left pleural effusion and mild right pleural thickening with sub segmental atelectatic changes on the right as well as well right lower lobe interlobular septal thick ening. No pneumothorax.No intrathoracic adenopathy. The liver, spleen, pancreas, adrenal glands and kidneys are within normal limits. No bowel obstruction, free air, or abscess. Mild free ascites, slightly improved since the prior exam . Hypoattenuating bilateral renal cortical lesions, largest at the right interpolar region measuring 3.7 cm, stable, at the bulb characterized. Stable pattern of mild retroperitoneal fat stranding most pronounced in the region of the pancreatic head and second part of duodenum. Mildly prominent retrope ritoneal lymph nodes not exceeding 1 cm in short axis, could be reactive/inflammatory. No pathologic lymphadenopathy in the abdomen or pelvis. No worrisome osseous finding. IMPRESSION: Essentially stable findings since the 09/14/2022 exam. Mild left pleural effusion, with mild right pleural thickening with moderate lower lobe interlobular septal thickening which may relate to pleurisy or atelectasis. Improving mild free ascites. Stable retroperitoneal fat stranding most pronounced at the level of the pancreatic head and duodenum, may reflect mild duodenitis or recurrent pancreatitis. . Please correl ate with pancreatic enzyme levels. Overall, constellation of findings may relate to fluid overload.
[2023-04-26 08:12] LABS: Bilirubin Direct 1.9 mg/dL (0-0.2); Bilirubin Total 3.2 mg/dL (0.2-1.0); Potassium 4.4 mEq/L (3.5-5.1)
[2023-04-26 08:13] LABS: Albumin 3.1 g/dL (3.4-5.0); Bilirubin Indirect, Calculated 1.3 mg/dL (0.2-0.8); Protein, Total 7.1 g/dL (6.4-8.2); Troponin High Sensitivity 10.5 pg/mL (<58.9)
[2023-04-26] MEDS ORDERED: AMOX/K CLAV 875 MG TAB ONE (09:07)
[2023-04-26] MEDS ORDERED: LACTULOSE 20 GM/30 ML UCUP ONE (09:07)
[2023-04-26] MEDS ORDERED: VANCOMYCIN 1 GM/VIAL ONE (09:07)
[2023-04-26] MEDS ORDERED: DOXYCYCLINE 100 MG CAP PO ONE (09:07)
[2023-04-26 11:15] VITALS: TEMP 98.7
[2023-04-26 11:17] VITALS: BP 114/76; O2SAT 99
--- NOTE | 2023-04-27 13:06 | RAD REPORT ---
EXAM DESCRIPTION: RAD - Chest Single View - 04/26/2023 1:57 am CLINICAL HISTORY: 3 years Male, COUGH COMPARISON: Chest radiograph dated 11/07/2022 IMPRESSION: Right lung base opacity concerning for pneumonia. No pleural effusion. No pneumothorax. Cardiomediastinal silhouette is within normal limits. Mild vascular congestion. No acute osseous abnormality. Electronically signed by: Kane Cooper DO 04/26/2023 02:12 AM SLABBER Due to temporary technical issues with the PACS/Fluency reporting system, reports are being signed by the in house radiologist without review as a courtesy to ensure prompt reporting. The interpreting r adiologist is fully responsible for the content of the report.
--- NOTE | 2023-04-27 16:52 | EKG ---
Test Date: 2023-04-26 Test Time: 04:09:11 Mill Turner: LATOYA MEASUREMENT RESULTS: Intervals: Rate: 91 LA: 198 QRSD: 76 QT: 404 QTc: 496 [place]: P: 42 LA: 198 QRS: 110 T: 29 INTERPRETIVE STATEMENTS: Normal sinus rhythm Low voltage QRS Borderline ECG Compared to ECG 09/14/2022 20:02:40 Myocardial infarct finding no longer present Prolonged QT interval no longer present Electronically Signed On 04-27-23 16:51:35 BENZENE OPERATOR by Clinton Agarwal
== END 2023-04-26 10:42 | disposition home or self-care (01) ==
LOC: ER 01:23
DX: J06.9 Acute upper respiratory infection, unspecified (principal); K74.60 Unspecified cirrhosis of liver; E11.65 Type 2 diabetes mellitus with hyperglycemia; L03.311 Cellulitis of abdominal wall; G93.40 Encephalopathy, unspecified; E66.9 Obesity, unspecified; Z28.310 Unvaccinated for COVID-19; Z11.52 Encounter for screening for COVID-19
CPT/HCPCS: 96365; 96367; 93005; 87040 ×2; 85025; 80048; 36415; 82140; 83735; 85610; 80076; 83605; 85730; 84484; 80053; 83880; 0240U; 71250; 74176; 71045; 96375; 99285; J2405; J7050 ×2; J7030; J0696

== ENCOUNTER 2023-09-14 01:38 | Emergency (ER) | payer OTHER ==
[2023-09-14] MEDS ORDERED: FUROSEMIDE 40 MG/4 ML VIAL ONE (02:22)
[2023-09-14 03:00] LABS: Absolute Eosinophils 0.1 K/uL (0-0.5); Absolute Lymphocytes (CBC) 0.4 K/uL (0.7-4.9); Absolute Monocytes 1.1 K/uL (0.1-1.3); Absolute Neutrophil 6.9 K/uL (1.8-8.0); Basophils % 0.6 % (0-1.3); Eosinophils % 1.3 % (0-4.4); Hematocrit 45.1 % (39.6-49.0); Hemoglobin 15.2 g/dL (13.6-17.9); MCHC 33.8 g/dL (32.0-36.0); MCV 103.6 fL (80-100); MPV 9.2 fL (7.6-11.3); Monocytes % 12.7 % (3.3-12.3); Neutrophils % 80.4 % (41.7-73.7); Nucleated Red Blood Cells % 0.1 % (0-0); PT Prothrombin Time 16.7 SECONDS (9.5-12.5); PTT, Activated Partial Thromb 32.8 SECONDS (24.3-36.9); Platelets 141 thou/uL (152-406); Protime INR 1.54; RBC Red Blood Cell Count 4.35 M/uL (4.33-5.43); Red Cell Distribution Width 17.6 % (12.1-15.2)
[2023-09-14 03:09] LABS: Bilirubin Total 3.7 mg/dL (0.2-1.0); Protein, Total 7.8 g/dL (6.4-8.2)
[2023-09-14 03:10] LABS: Albumin/Globulin Ratio 0.6 (1.1-1.8); Globulin 4.8 g/dL (2.3-3.5); Troponin High Sensitivity 11.4 pg/mL (<58.9)
--- NOTE | 2023-09-14 03:26 | ER ---
Nurse's Notes [facility] Name: Jon Doherty Age: 63 yrs Sex: Male : 1960 Arrival Date: 09/14/2023 Time: 01:38 Bed 5 Private MD: Diagnosis: Liver cirrhosis, pulmonary edema Presentation: 09/13 02:01 Chief complaint: Patient states: worsening abdominal distention, shortness of breath cm10 and cough. Coronavirus screen: Client denies travel out of the [place] in the last 14 days. At this time, the client does not indicate any symptoms associated with coronavirus-19. Ebola Screen: Patient denies travel to an Ebola-affected area in the 21 days before illness onset. No symptoms or risks identified at this time. Initial Sepsis Screen: Does the patient meet any 2 criteria? No. Patient's initial sepsis screen is negative. Does the patient have a suspected source of infection? No. Patient's initial sepsis screen is negative. Risk Assessment: Do you want to hurt yourself or someone else? Patient reports no desire to harm self or others. Onset of symptoms was September 14, 2023. 02:01 Method Of Arrival: Wheelchair cm10 02:01 Acuity: CARLIN 3 cm10 02:01 Acuity: CARLIN 2 cm10 Triage Assessment: 02:00 Respiratory: Reports shortness of breath at rest cough that is non-productive, dry, ha1 Onset: The symptoms/episode began/occurred gradually, the patient has moderate shortness of breath. 02:00 General: Appears uncomfortable, Behavior is cooperative, appropriate for age. ha1 Historical: - Allergies: 02:02 No Known Allergies; cm10 - PMHx: 02:02 cirrhosis of liver; diabetes mellitus; cm10 - PSHx: 02:02 left knee surgery; Tonsillectomy; cm10 - Immunization history:: Adult Immunizations up to date. - Infectious Disease History:: Denies. - Social history:: Smoking status: Patient denies any tobacco usage or history of. Screenin:29 Abuse screen: Denies threats or abuse. Denies injuries from another. Nutritional ha1 screening: No deficits noted. Tuberculosis screening: No symptoms or risk factors identified. Assessment: 01:47 General: Appears uncomfortable, Behavior is cooperative. Pain: Complains of pain in ha1 abdomen Pain does not radiate. Pain currently is 6 out of 10 on a pain scale. Quality of pain is described as pressure. Neuro: Level of Consciousness is awake, alert, obeys commands, Oriented to person, place, time, situation. Cardiovascular: Capillary refill < 3 seconds Rhythm is sinus rhythm. Respiratory: Reports shortness of breath at rest Airway is patent Respiratory effort is even, unlabored, Respiratory pattern is regular, symmetrical, Respiratory:. GI: Abdomen is round distended, obese. GI: Reports lower abdominal pain, upper abdominal pain. : No signs and/or symptoms were reported regarding the genitourinary system. Derm: Skin is normal. Musculoskeletal: Range of motion: intact in all extremities. 03:00 Reassessment: Patient and/or family updated on plan of care and expected duration. Pain ha1 level reassessed. Vital Signs: 02:01 BP 126 / 82; Pulse 83; Resp 18; Temp 98.3(O); Pulse Ox 100% on R/A; Weight 153.31 kg; cm10 Height 5 ft. 8 in. ; Pain 8/10; 03:00 BP 113 / 71; Pulse 80; Resp 18 S; Pulse Ox 98% on R/A; ha1 02:01 Body Mass Index 51.39 (153.31 kg, 172.72 cm) cm10 02:01 Pain Scale: Adult cm10 [place] Coma Score: 03:38 Eye Response: spontaneous(4). Motor Response: obeys commands(6). Verbal Response: rv oriented(5). Total: 15. ED Course: 01:45 Patient arrived in ED. gm2 01:47 Client placed on continuous cardiac and pulse oximetry monitoring. NIBP monitoring ha1 applied. cafeteria monitor on. 01:47 Patient has correct armband on for positive identification. Placed in gown. Bed in low ha1 position. Call light in reach. Side rails up X 1. 01:52 Penelope Kumari MD is Attending Physician. sp3 01:52 EKG done, by ED staff, reviewed by Penelope Kumari MD. ha1 02:00 Missed attempt(s): 20 gauge in right antecubital area. Bleeding controlled, band aid ha1 applied, catheter tip intact. 02:02 Triage completed. cm10 02:03 Arm band placed on Patient placed in an exam room, on a stretcher. cm10 02:30 Initial lab(s) drawn, by me, sent to lab. Accessed peripheral vein via ultrasound, cm10 utilizing dynamic ultrasound technique Clean \T\ dry. Dressing intact. Good blood return. Flushes easily. 20G left FA. Missed attempt(s): 20 gauge in left forearm. Bleeding controlled, band aid applied, catheter tip intact. 02:30 First set of blood cultures drawn by me. cm10 02:48 CT Abd/Pelvis - Without Contrast In Process Unspecified. EDMS 03:38 No provider procedures requiring assistance completed. IV discontinued, intact, rv bleeding controlled, No redness/swelling at site. Pressure dressing applied. Administered Medications: 03:00 Drug: Furosemide IVP 40 mg IVP once; give over 2 minutes Route: IVP; Site: left forearm;ha1 Outcome: 03:25 Discharge ordered by . spDeric 03:38 Discharged to home via wheelchair, with family, rv 03:38 Condition: good 03:38 Discharge instructions given to patient, Instructed on discharge instructions, follow up and referral plans. Demonstrated understanding of instructions, follow-up care, 03:39 Patient left the ED. rv Signatures: Dispatcher [employer] EDMS Steve Ibarra RN RN rv Penelope Kumari MD MD sp3 Sury Marie RN RN ha1 Rachell Casarez RN RN 10 Zari Benedict 2
--- NOTE | 2023-09-14 03:26 | EDPHYS ---
Physician Documentation [facility] Name: Jon Doherty Age: 63 yrs Sex: Male : 1960 Arrival Date: 09/14/2023 Time: 01:38 Bed 5 Private MD: ED Physician Penelope Kumari HPI: 09/13 02:37 This 63 yrs old Male presents to ER via Wheelchair with complaints of sp3 Shortness Of Breath, Abdominal Swelling, Leg Swelling, Feet Swelling. 02:37 63-year-old male with history of liver cirrhosis, prior abdominal wall cellulitis, sp3 hypertension, diabetes who now presents with recurrent ascites and abdominal fullness. Patient states he is in the middle of switching GI physicians and has an appointment for next week. He is requesting paracentesis therapeutically. He denies fever, chest pain, shortness of breath, rash, bleeding, or any other signs or symptoms on ROS at this time.. Historical: - Allergies: 02:02 No Known Allergies; cm10 - PMHx: 02:02 cirrhosis of liver; diabetes mellitus; cm10 - PSHx: 02:02 left knee surgery; Tonsillectomy; cm10 - Immunization history:: Adult Immunizations up to date. - Infectious Disease History:: Denies. - Social history:: Smoking status: Patient denies any tobacco usage or history of. ROS: 02:38 Constitutional: Negative for fever, chills, and weight loss, Eyes: Negative for injury, sp3 pain, redness, and discharge, ENT: Negative for injury, pain, and discharge, Neck: Negative for injury, pain, and swelling, Cardiovascular: Negative for chest pain, palpitations, and edema, Respiratory: Negative for shortness of breath, cough, wheezing, and pleuritic chest pain, Back: Negative for injury and pain, Skin: Negative for injury, rash, and discoloration, Neuro: Negative for headache, weakness, numbness, tingling, and seizure, Psych: Negative for depression, anxiety, suicide ideation, homicidal ideation, and hallucinations, Allergy/Immunology: Negative for hives, rash, and allergies, 02:38 All other systems are negative, Exam: 02:38 Constitutional: This is a well developed, well nourished patient who is awake, alert, sp3 and in no acute distress. Head/Face: Normocephalic, atraumatic. Eyes: Pupils equal round and reactive to light, extra-ocular motions intact. Lids and lashes normal. Conjunctiva and sclera are non-icteric and not injected. Cornea within normal limits. Periorbital areas with no swelling, redness, or edema. Neck: Trachea midline, no thyromegaly or masses palpated, and no cervical lymphadenopathy. Supple, full range of motion without nuchal rigidity, or vertebral point tenderness. No Meningismus. Chest/axilla: Normal chest wall appearance and motion. Nontender with no deformity. No lesions are appreciated. Cardiovascular: Regular rate and rhythm with a normal S1 and S2. No gallops, murmurs, or rubs. Normal PMI, no JVD. No pulse deficits. Respiratory: Lungs have equal breath sounds bilaterally, clear to auscultation and percussion. No rales, rhonchi or wheezes noted. No increased work of breathing, no retractions or nasal flaring. Back: No spinal tenderness. No costovertebral tenderness. Full range of motion. Neuro: Awake and alert, GCS 15, oriented to person, place, time, and situation. Cranial nerves II-XII grossly intact. Motor strength 5/5 in all extremities. Sensory grossly intact. Cerebellar exam normal. Normal gait. Psych: Awake, alert, with orientation to person, place and time. Behavior, mood, and affect are within normal limits. 02:38 Abdomen/GI: Obese abdomen with ascites present. No peritoneal signs, rebound or guarding noted., Vital Signs: 02:01 BP 126 / 82; Pulse 83; Resp 18; Temp 98.3(O); Pulse Ox 100% on R/A; Weight 153.31 kg; cm10 Height 5 ft. 8 in. ; Pain 8/10; 03:00 BP 113 / 71; Pulse 80; Resp 18 S; Pulse Ox 98% on R/A; ha1 02:01 Body Mass Index 51.39 (153.31 kg, 172.72 cm) cm10 02:01 Pain Scale: Adult cm10 [place] Coma Score: 03:38 Eye Response: spontaneous(4). Motor Response: obeys commands(6). Verbal Response: rv oriented(5). Total: 15. MDM: 01:52 Patient medically screened. sp3 02:38 Data reviewed: vital signs, nurses notes, lab test result(s), radiologic studies. ED sp3 course: 63-year-old male with liver cirrhosis and ascites. No GI coverage available here so most probably we will have to transfer him. I am not highly suspicious for SBP, sepsis, shock or any other critical process. Full workup is pending including CT and labs. EKG demonstrates normal sinus rhythm at 82 bpm with a first-degree AV block at 224, and nonspecific diffuse ST's ST changes without evidence of acute ischemia.. 03:23 ED course: Patient CT scan findings are consistent with his prior scan. There is no sp3 significant ascites in the abdomen. He does have some pulmonary edema. Patient is feeling better after some mild diuresis after the Lasix was administered. T. bili and LFTs are stable. No white blood cell count noted. Lipase is normal. We will safely discharge him home at this time.. 09/13 01:55 Order name: CBC with Diff; Complete Time: 03:07 sp3 09/13 01:55 Order name: CMP; Complete Time: 03:20 sp3 09/13 01:55 Order name: Lipase; Complete Time: 03:20 sp3 09/13 01:55 Order name: AMMONIA; Complete Time: 03:07 sp3 09/13 01:55 Order name: Lactate w/ 2H reflex if indic.; Complete Time: 03:20 sp3 09/13 01:55 Order name: Troponin High Sensitivity; Complete Time: 03:20 sp3 09/13 01:55 Order name: PT-INR; Complete Time: 03:07 sp3 09/13 01:55 Order name: Ptt, Activated; Complete Time: 03:07 sp3 09/13 01:55 Order name: CT Abd/Pelvis - Without Contrast sp3 09/13 01:55 Order name: IV Saline Lock; Complete Time: 02:43 sp3 09/13 01:55 Order name: Labs collected and sent; Complete Time: 02:43 sp3 09/13 01:55 Order name: EKG - Nurse/Tech; Complete Time: 02:19 sp3 Administered Medications: 03:00 Drug: Furosemide IVP 40 mg IVP once; give over 2 minutes Route: IVP; Site: left forearm;ha1 Disposition Summary: 09/14/23 03:25 Discharge Ordered Notes: Location: Home sp3 Condition: Stable sp3 Diagnosis - Liver cirrhosis, pulmonary edema sp3 Followup: sp3 - With: Private Physician - When: Upon discharge from the Emergency Department - Reason: Continuance of care Discharge Instructions: - Discharge Summary Sheet sp3 - Cirrhosis sp3 Forms: - Medication Reconciliation Form sp3 - Thank You Letter sp3 - Antibiotic Education sp3 - Prescription Opioid Use sp3 - Patient Portal Instructions sp3 - Leadership Thank You Letter sp3 Signatures: Dispatcher [employer] EDPenelope Salvador MD MD sp3 Sury Marie, RN RN ha1 Rachell Casarez RN RN cm10 Corrections: (The following items were deleted from the chart) 01:56 01:56 Abdomen Pelvis Wo Con+CT.RAD.BRZ ordered. EDMS EDMS
[2023-09-14 06:03] VITALS: BP 113/71; TEMP 98.3; O2SAT 98
--- NOTE | 2023-09-16 22:46 | RAD REPORT ---
EXAM DESCRIPTION: CT - Abdomen Pelvis Wo Contrast - 09/14/2023 7:03 am CLINICAL HISTORY: ABD PAIN COMPARISON: 04/26/2023 TECHNIQUE: CT of the abdomen and pelvis without IV contrast. Evaluation of the solid organs and vasc ulature is suboptimal due to lack of IV contrast. This exam was performed according to our department al dose-optimization program, which includes automated exposure control, adjustment of the mA and/or kV according to patient size and/or use of iterative reconstruction technique. FINDINGS: Lung Bases: Moderate left and small right pleural effusion with bibasilar interstitial opa cities. Coronary artery atherosclerosis. Bones: Multilevel degenerative endplate spondylosis and facet arthropathy. Osteoarthritic change of t he hips. Abdomen: Liver: The liver has normal size and density. Gallbladder: Possible gallbladder sludge. Spleen, Pancreas, and Adrenal Glands: Peripancreatic fat stranding. Spleen and adrenal glands are u nremarkable. Kidneys: No hydronephrosis or obstructing ureteral calculi. Bilateral renal cysts. No follow-up imagi ng for the structures. Vasculature: Aortoiliac atherosclerosis. IVC is unremarkable. Stomach: Wall thickening of the duodenum. Other: No free intraperitoneal air. Small amount of free fluid. Diffuse body wall anasarca. Shodd y lymph nodes throughout the mesentery which may be reactive. Pelvis: Bladder: Urinary bladder is unremarkable. Bowel: No dilated loops of large or small bowel. Moderate amount of stool. Scattered diverticula of the colon. Appendix: Not identified. Pelvis: Prostate is not enlarged. IMPRESSION: 1. Peripancreatic fat stranding with wall thickening of the duodenum. These findings c ould be seen with acute pancreatitis and duodenitis. Correlation with serum lipase recommended. 2. Wall thickening of the duodenum. This may be reactive due to pancreatitis. If serum lipase is no rmal blood nidus or nonperforated ulcer disease could produce this appearance. 3. Moderate left and small right pleural effusion with bibasilar interstitial opacities. These find ings could be seen with pulmonary edema. 4. Coronary artery atherosclerosis. 5. Small amount of free fluid in the abdomen. 6. Possible gallbladder sludge. 7. Diverticulosis. Electronically signed by: Moi Dan DO 09/14/2023 03:14 AM CDT M Due to temporary technical issues with the PACS/Fluency reporting system, reports are being signed by the in house radiologists without review as a courtesy to insure prompt reporting. The interpreting radiologist is fully responsible for the content of the report.
== END 2023-09-14 03:39 | disposition home or self-care (01) ==
LOC: ER 01:38
DX: J81.1 Chronic pulmonary edema (principal); K74.60 Unspecified cirrhosis of liver; E11.9 Type 2 diabetes mellitus without complications
CPT/HCPCS: 93005; 85025; 36415; 82140; 85610; 83605; 85730; 84484; 83690; 80053; 74176; 96374; 99285; J1940